=== PATIENT | male | born 1950 | race Caucasian/White ===

== ENCOUNTER 2019-01-25 07:05 | Day surgery (SDC) | payer MEDICARE, BC ==
[~2019-01-25 07:05] MED LIST: Acetaminophen TAB* 325 MG PO PRN; Buffered Lidocaine 1% SYRIN* 1 ML/SYRINGE INTRADERM ONE
[2019-01-25] MEDS ORDERED: Midazolam* 1 MG/ML 2 ML VIAL (2 MG) ONE (08:21)
[2019-01-25 09:43] VITALS: BP 140/75
[2019-01-25] MEDS ORDERED: Lidocaine 2% EPI 1:200000 MPF*10-20 ML VIAL ONE (10:07)
[2019-01-25] MEDS ORDERED: Lidocaine 1%* 5 ML VIAL ONE (10:07)
[2019-01-25] MEDS ORDERED: Proparacaine 0.5% OPHTH.SOL* 15 ML BTL ONE (10:07)
[2019-01-25] MEDS ORDERED: Cyclopentolate 1% OPTH.SOL* 2 ML BTL ONE (10:07)
[2019-01-25] MEDS ORDERED: Phenylephrine OPHTH SOL 2.5%* 2 ML ONE (10:07)
[2019-01-25] MEDS ORDERED: Ketorolac 0.5% OPHTH (NF) 0.5 % 5 ML BTL ONE (10:07)
[2019-01-25] MEDS ORDERED: acetaZOLAMIDE TAB* 250 MG ONE (10:07)
[2019-01-25] MEDS ORDERED: Neomycin/Polymy/Dex OPTH.SUSP* MAXITROL 0.1% 5 ML ONE (10:07)
[2019-01-25] MEDS ORDERED: Povidone Iodine 5% OPTH* 30 ML BTL ONE (10:07)
--- NOTE | 2019-01-25 11:28 | OP ---
OPERATIVE NOTE: DATE OF OPERATION: 01/25/19 DATE OF : 46 SURGEON: Gonzalo Levy M.D. PREOPERATIVE DIAGNOSIS: Cataract, left eye. POSTOPERATIVE DIAGNOSIS: Cataract, left eye. OPERATIVE PROCEDURE: Extracapsular cataract extraction with intraocular lens implant left eye. PROCEDURE: The patient was brought to the operating room after being given 1/2% Alcaine with epineph rine drops in the preoperative area. The eye was prepped and draped in the usual sterile fashion. S terile drape and eyelid speculum were placed. Again, topical 1/2% Alcaine with epinephrine was given . A paracentesis incision was made at the 3 o'clock position with the No.75 blade. Clear cornea inc ision 2.2 x 2.2-mm was created at the 6 o'clock position starting at the anterior limbus using the 2. 2-mm keratome. The anterior chamber was irrigated with 0.4 mL of 1% non-preservative intracameral li docaine and filled with DisCoVisc. A capsulorrhexis was completed using the cystotome and the Utrata forceps. Hydrodissection was performed with balanced salt solution. The lens nucleus was removed wi th the Phacoemulsification handpiece without incident. Cortex was removed with the irrigation-aspira tion handpiece. The capsular bag was re-inflated using DisCoVisc and an SN60WF 19.5 implant was inse rted with the shooter. The irrigation-aspiration handpiece was used to remove all residual DisCoVisc . The eye was refilled with balanced salt solution and the wound checked and found to be watertight. Topical Maxitrol drops were given. [id number]/[facility] #: [id number]
== END 2019-01-25 09:25 | disposition home or self-care (01) ==
LOC: OREAST 07:05
PROVIDERS: ATTEND Specialist
DX: H25.812 Combined forms of age-related cataract, left eye (principal); I10 Essential (primary) hypertension; E78.00 Pure hypercholesterolemia, unspecified; Z85.46 Personal history of malignant neoplasm of prostate; K21.9 Gastro-esophageal reflux disease without esophagitis; M19.90 Unspecified osteoarthritis, unspecified site
CPT/HCPCS: A9270-GY; J2250; V2632

== ENCOUNTER → 2019-03-13 07:41 | Emergency (ER) | payer MEDICARE, BC ==
--- OUTSIDE RECORDS SUMMARY | 2019-03-13 08:07 | XMS REPORT | Continuity of Care Document ---
:1950 External Reference #:[id number] Author Name Tom Chacon MD Address [address] [place] [place] [id number] Care Team Providers Name Role Phone Jose Ramon García M.D. 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 Onset: 04/06/2012 Social History Type Date Description Comments Sex Unknown Tobacco Use Start: Unknown End: Unknown Does Not Smoke Cigarettes ETOH Use Rarely consumes alcohol Vital Signs Date Vital Result Comment 03/10/2019 4:10pm Weight 229.00 lb Weight 103.874 kg Heart Rate 64 /min Body Temperature 98.2 F Respiratory Rate 16 /min Height 70.5 inches 5'10.50" BMI (Body Mass Index) 32.4 kg/m2 Right Visual Acuity Distance 20/25 Left Visual Acuity Distance 20/25 Both Visual Acuity Distance 20/25 Right ear audiology results Pass Left ear audiology results Pass 04/08/2018 4:11pm Weight 216.00 lb Weight 97.978 kg BP Systolic 138 mmHg BP Diastolic 80 mmHg Heart Rate 78 /min Body Temperature 97.2 F Respiratory Rate 16 /min O2 % BldC Oximetry 98 % 04/01/2017 3:59pm Weight 243.00 lb Weight 110.225 kg BP Systolic 140 mmHg BP Diastolic 80 mmHg Heart Rate 80 /min Height 70.5 inches 5'10.50" BMI (Body Mass Index) 34.4 kg/m2 Right Visual Acuity Distance 20/25 corrected Left Visual Acuity Distance 20/30 Corrected Both Visual Acuity Distance 20/25 Corrected, Corrected [place]ara Color Vision Test Pass Right ear audiology results Pass Left ear audiology results Pass O2 % BldC Oximetry 98 % 03/04/2016 10:42am Weight 240.00 lb Weight 108.864 kg BP Systolic 136 mmHg BP Diastolic 72 mmHg Heart Rate 66 /min Height 70.5 inches 5'10.50" BMI (Body Mass Index) 33.9 kg/m2 Right Visual Acuity Distance 20/25 Corrected Left Visual Acuity Distance 20/25 Corrected Both Visual Acuity Distance 20/20 Corrected 03/15/2015 10:15am Weight 234.00 lb Weight 106.142 kg BP Systolic 128 mmHg BP Diastolic 78 mmHg Heart Rate 71 /min Body Temperature 98.0 F Respiratory Rate 16 /min Height 72 inches BMI (Body Mass Index) 31.7 kg/m2 Right Visual Acuity Distance 20/20 Left Visual Acuity Distance 20/25 Both Visual Acuity Distance 20/30 03/30/2014 10:00am Weight 244.00 lb Weight 110.678 kg BP Systolic 132 mmHg BP Diastolic 82 mmHg Heart Rate 68 /min Height 71 inches 5'11" BMI (Body Mass Index) 34.0 kg/m2 Right Visual Acuity Distance 20/25 Corrected Left Visual Acuity Distance 20/20 Corrected Both Visual Acuity Distance 20/20 Corrected 03/23/2013 11:03am Weight 240.00 lb Weight 108.864 kg BP Systolic 120 mmHg BP Diastolic 80 mmHg Heart Rate 88 /min Height 71 inches 5'11" BMI (Body Mass Index) 33.5 kg/m2 Right Visual Acuity Distance 20/20 corrected Left Visual Acuity Distance 20/20 corrected Both Visual Acuity Distance 20/20 corrected 03/16/2012 10:03am Weight 234.00 lb Weight 106.142 kg BP Systolic 128 mmHg BP Diastolic 80 mmHg Heart Rate 84 /min Height 72 inches 6'0" BMI (Body Mass Index) 31.7 kg/m2 Right Visual Acuity Distance 20/20 Left Visual Acuity Distance 20/20 Both Visual Acuity Distance 20/20 With Glasses 03/20/2011 10:21am Weight 233.00 lb Weight 105.689 kg BP Systolic 116 mmHg BP Diastolic 84 mmHg Heart Rate 84 /min Height 71 inches 5'11" BMI (Body Mass Index) 32.5 kg/m2 Right Visual Acuity Distance 20/25 with glasses Left Visual Acuity Distance 20/30 with glasses Both Visual Acuity Distance 20/25 with glasses Last Menstrual Period 0 03/01/2009 11:42am Weight 237.00 lb Weight 107.503 kg BP Systolic 146 mmHg BP Diastolic 90 mmHg Heart Rate 72 /min Height 71 inches 5'11" BMI (Body Mass Index) 33.1 kg/m2 Right Visual Acuity Distance 20/20 Left Visual Acuity Distance 20/20 04/14/2007 4:09pm Weight 232.00 lb Weight 105.235 kg BP Systolic 120 mmHg BP Diastolic 80 mmHg Heart Rate 78 /min Respiratory Rate 18 /min Height 70.5 inches 5'10.50" BMI (Body Mass Index) 32.8 kg/m2 Right Visual Acuity Distance 20/20 Left Visual Acuity Distance 20/20 04/16/2006 3:52pm Weight 235.00 lb Weight 106.596 kg BP Systolic 130 mmHg BP Diastolic 78 mmHg Heart Rate 78 /min Height 70.5 inches 5'10.50" BMI (Body Mass Index) 33.2 kg/m2 12/03/2005 10:15am Weight 230.00 lb Weight 104.328 kg BP Systolic 112 mmHg BP Diastolic 64 mmHg Heart Rate 66 /min Height 70.5 inches 5'10.50" BMI (Body Mass Index) 32.5 kg/m2 Right Visual Acuity Distance 20/25 With Glasses Left Visual Acuity Distance 20/20 Results Test Date Facility Test Result H/L Range Note Urine DIP 04/08/2018 [facility] Leukocytes neg Neg (607)- - Urine Nitrites neg Neg Urobilinogen norm Norm Total Protein, Urine neg Neg Urine pH 6.0 5-6 Urine Blood neg Neg Specific [place] 1.005 Low 1.01-1.02 Urine Ketones neg Neg Urine Bilirubin neg Neg Urine Glucose norm Norm Urine DIP 04/01/2017 [facility] Leukocytes neg Neg (607)- - Urine Nitrites neg Neg Urobilinogen norm Norm Total Protein, Urine neg Neg Urine pH 6 5-6 Urine Blood 50 High Neg Specific [place] 1.01 1.01-1.02 Urine Ketones neg Neg Urine Bilirubin neg Neg Urine Glucose norm Norm Urine DIP 03/04/2016 [facility] Leukocytes NEG Neg (607)- - Urine Nitrites NEG Neg Urobilinogen NORM Norm Total Protein, Urine TRACE Neg Urine pH 5 5-6 Urine Blood NEG Neg Specific [place] 1.015 1.01-1.02 Urine Ketones NEG Neg Urine Bilirubin NEG Neg Urine Glucose NORM Norm Urine DIP 03/15/2015 [facility] Specific [place] 1.005 Low 1.01-1.02 (607)- - Urine pH 5 5-6 Leukocytes TRACE Neg Urine Nitrites NEG Neg Total Protein, Urine NEG Neg Urine Glucose NORM Norm Urine Ketones NEG Neg Urobilinogen NORM Norm Urine Bilirubin NEG Neg Urine Blood ABOUT 50 Neg Urine DIP 03/30/2014 [facility] Specific [place] 1.015 1.01-1.02 (607)- - Urine pH 5 5-6 Leukocytes NEG Neg Urine Nitrites NEG Neg Total Protein, Urine NEG Neg Urine Glucose NORM Norm Urine Ketones NEG Neg Urobilinogen NORM Norm Urine Bilirubin NEG Neg Urine Blood NEG Neg Urine DIP 03/23/2013 [facility] Leukocytes neg Neg (607)- - Urine Nitrites neg Neg Urine pH 5 5-6 Total Protein, Urine neg Neg Urine Glucose norm Norm Urine Ketones neg Neg Urobilinogen norm Norm Urine Bilirubin neg Neg Urine Blood neg Neg Specific [place] 1.025 High 1.01-1.02 Urine DIP 03/16/2012 [facility] Leukocytes NEG Neg (607)- - Urine Nitrites NEG Neg Urine pH 5 5-6 Total Protein, Urine NEG Neg Urine Glucose NORM Norm Urine Ketones NEG Neg Urobilinogen NORM Norm Urine Bilirubin NEG Neg Urine Blood NEG Neg Specific [place] 1.010 1.01-1.02 Urine DIP 03/20/2011 [facility] Leukocytes neg Neg (607)- - Urine Nitrites neg Neg Urine pH 5 5-6 Total Protein, Urine neg Neg Urine Glucose norm Norm Urine Ketones neg Neg Urobilinogen norm Norm Urine Bilirubin neg Neg Urine Blood neg Neg Specific [place] 1.015 1.01-1.02 Urine DIP 03/01/2009 [facility] Leukocytes NEG Neg (607)- - Urine Nitrites NEG Neg Urine pH 5 5-6 Total Protein, Urine NEG Neg Urine Glucose NORM Norm Urine Ketones NEG Neg Urobilinogen NORM Norm Urine Bilirubin NEG Neg Urine Blood NEG Neg Specific [place] 1.010 1.01-1.02 Urine DIP 04/14/2007 [facility] Leukocytes NEG Neg (607)- - Urine Nitrites NEG Neg Urine pH 5 5-6 Total Protein, Urine NL Neg Urine Glucose NL Norm Urine Ketones NL Neg Urobilinogen NL Norm Urine Bilirubin NL Neg Urine Blood NL Neg Specific [place] N/A Low 1.01-1.02 Urine DIP 04/16/2006 [facility] Leukocytes NEG Neg (607)- - Urine Nitrites NEG Neg Urine pH 5 5-6 Total Protein, Urine NEG Neg Urine Glucose NORM Norm Urine Ketones NEG Neg Urobilinogen NORM Norm Urine Bilirubin NEG Neg Urine Blood NEG Neg Urine DIP 01/01/2006 [facility] Leukocytes neg Neg (607)- - Urine Nitrites nge Neg Urine pH 5 5-6 Total Protein, Urine neg Neg Urine Glucose norm Norm Urine Ketones neg Neg Urobilinogen norm Norm Urine Bilirubin neg Neg Urine Blood neg Neg Specific [place] na Low 1.01-1.02 Comp Metabolic 12/04/2005 [facility] One Over Creatinine 1.00 Panel [phone] Anion Gap 6.0 mmol/L 2-11 1 Albumin/Globulin Ratio 1.4 1-3 Albumin 3.7 GM/DL 3.6-5.4 Alkaline Phosphatase 70 U/L 39-117 Alt (SGPT) 15 U/L Low 17-63 Ast (Sgot) 22 U/L 12-42 BUN 14 mg/dL 6-24 Calcium 9.1 mg/dL 8.7-10.2 Chloride 103 mmol/L 101-111 Co2 (Carbon Dioxide) 30.0 mmol/L 22-32 Globulin 2.6 GM/DL 2-4 Glucose 97 mg/dL 70-105 Potassium 4.7 mmol/L 3.5-5.0 Sodium 139 mmol/L 135-145 Bilirubin Total 0.8 mg/dL 0.4-1.5 Total Protein 6.3 GM/DL 6.2-8.1 BUN/Creatinine Ratio 14.0 8-20 Creatinine 1.0 mg/dL 0.5-1.4 Lipid Profile 12/04/2005 [facility] Cholesterol 249 mg/dL High Less 2 (Trig/Chol/HDL) [phone] Than 200 Triglyceride 174 mg/dL 40-200 High Density Lipoprotein 39 mg/dL Low 40-60 3 Low Density Lipoprotein 175 mg/dL High Less Than 100 4 Cholesterol/HDL Ratio 6.38 AVERAGE High 1-4.97 1 Anion gap measurement may be of limited value in the presence of any alkalosis, especially in a combined acid base disorder. . 2 Classification: High . 3 Classification: Low . 4 CALCULATED LDL APPROXIMATES THE VALUE OF A DIRECT LDL MEASUREMENT. Classification: High . Procedures Date Code Description Status 12/03/2005 92387 EKG, at Least 12 Leads w/Interpretation and Report Completed Encounters Type Date Location Provider Dx Diagnosis Office Visit 12/03/2005 10:15a Main Office [facility] Plan of Treatment 03/20/2011 - Martha Colon M.D.V70.0 Examination [facility]
--- NOTE | 2019-03-13 08:12 | ED ---
HPI Chest Pain - History of Current Complaint Chief Complaint: EDNeurologicalDeficit Time Seen by Provider: 03/13/19 07:44 Pain Intensity: 1 - Allergy/Home Medications Allergies/Adverse Reactions: Allergies Allergy/AdvReac Type Severity Reaction Status Date / Time No Known Allergies Allergy Verified 01/25/19 07:31 PMH/Surg Hx/FS Hx/Imm Hx Endocrine/Hematology History: Denies: Hx Diabetes Cardiovascular History: Reports: Hx Hypertension - WELL CONTROLLED, Other Cardiovascular Problems/Disorders - HIGH CHOLESTEROL Denies: Hx Pacemaker/ICD GI History: Reports: Hx Gastroesophageal Reflux Disease Musculoskeletal History: Reports: Hx Arthritis - MILD Sensory History: Reports: Hx Cataracts - BOTH EYES, Hx Contacts or Glasses - GLASSES Denies: Hx Hearing Aid Opthamlomology History: Reports: Hx Cataracts - BOTH EYES, Hx Contacts or Glasses - GLASSES Psychiatric History: Denies: Hx Panic Disorder - Cancer History Cancer Type, Location and Year: PROSTATE 10/2017 Hx Chemotherapy: No - RADIATION 9 WEEKS - Surgical History Surgery Procedure, Year, and Place: 1965 APPY [facility] [place]. VASECTOMY 1995 [facility] [place]. HERNIA 1995 [facility] [place]. SINUS SURGERY 2006 [place]. TURP 3YRS AGO Hx Anesthesia Reactions: No Infectious Disease History: No Infectious Disease History: Denies: Traveled Outside the [place] in Last 30 Days - Social History Alcohol Use: Weekly Alcohol Amount: 4-5/WEEK Substance Use Type: Reports: None Smoking Status (MU): Former Smoker Type: Cigarettes Length of Time of Smoking/Using Tobacco: ON AND OFF APPROX 10 YRS Have You Smoked in the Last Year: No Physical Exam Vital Signs On Initial Exam: Initial Vitals Temp Pulse Resp BP Pulse Ox 96.6 F 77 18 156/91 98 03/13/19 07:46 03/13/19 07:46 03/13/19 07:46 03/13/19 07:46 03/13/19 07:46 Diagnostics - Vital Signs Vital Signs Temp Pulse Resp BP Pulse Ox 03/13/19 07:46 96.6 F 77 18 156/91 98 - Laboratory Lab Statement: Any lab studies that have been ordered have been reviewed, and results considered in the medical decision making process. Discharge - Discharge Plan Referrals: Sage Oquendo MD [Primary Care Provider] - - Attestation Statements Document Initiated by Scribe: Yes
--- NOTE | 2019-03-13 08:13 | ED ---
Complex/Multi-Sys Presentation - HPI Summary HPI Summary: The patient is a 68 year old M presenting to [facility] accompanied by his with a chief complaint of L sided sharp rib pain since last night 03/12/19. Patient reports pain on deep inhalation and that the area is sensitive to touch. Patient reports there is associated numbness on the L side of the chin and "prickling" bilaterally on the cheeks starting last evening as well. Patient rates the pain a 1/10 and that burping made it feel better. Patient reports no factors that aggravate the CC. Patient reports that he was diagnosed with prostate cancer October 2018. He notes that he received 9 weeks of radiation therapy. Patient reports taking luperine for prostate cancer and notes that he experiences hot flash side effects with the medication. He also makes note of chronic back pain and states he "pulled a muscle" after stepping over a log 2-3 weeks ago. - History Of Current Complaint Chief Complaint: EDNeurologicalDeficit Time Seen by Provider: 03/13/19 07:44 Hx Obtained From: Patient Onset/Duration: Sudden Onset, Lasting Hours - since last evening, Still Present Timing: Constant, Hours Severity Currently: Mild Character: Sharp Aggravating Factor(s): deep breaths and palpation Alleviating Factor(s): burping Associated Signs And Symptoms: Positive: Other - "Prickling" sensation bilaterally on cheeks, L chin numbness, left rib pain - Allergies/Home Medications Allergies/Adverse Reactions: Allergies Allergy/AdvReac Type Severity Reaction Status Date / Time No Known Allergies Allergy Verified 01/25/19 07:31 PMH/Surg Hx/FS Hx/Imm Hx Endocrine/Hematology History: Denies: Hx Diabetes Cardiovascular History: Reports: Hx Hypertension - WELL CONTROLLED, Other Cardiovascular Problems/Disorders - HIGH CHOLESTEROL Denies: Hx Pacemaker/ICD GI History: Reports: Hx Gastroesophageal Reflux Disease Musculoskeletal History: Reports: Hx Arthritis - MILD Sensory History: Reports: Hx Cataracts - BOTH EYES, Hx Contacts or Glasses - GLASSES Denies: Hx Hearing Aid Opthamlomology History: Reports: Hx Cataracts - BOTH EYES, Hx Contacts or Glasses - GLASSES Psychiatric History: Denies: Hx Panic Disorder - Cancer History Cancer Type, Location and Year: PROSTATE 10/2017 Hx Chemotherapy: No - RADIATION 9 WEEKS - Surgical History Surgery Procedure, Year, and Place: 1965 APPY [facility] [place]. VASECTOMY 1995 [facility] [place]. HERNIA 1995 [facility]. SINUS SURGERY 2007 [place]. LAUREP 3YRS AGO Hx Anesthesia Reactions: No Infectious Disease History: No Infectious Disease History: Denies: Traveled Outside the [place] in Last 30 Days - Family History Known Family History: Positive: Hypertension Negative: Diabetes - Social History Alcohol Use: Weekly Alcohol Amount: 4-5/WEEK Substance Use Type: Reports: None Smoking Status (MU): Former Smoker Type: Cigarettes Length of Time of Smoking/Using Tobacco: ON AND OFF APPROX 10 YRS Have You Smoked in the Last Year: No Review of Systems Positive: Other - L rib pain Neurological: Other - bilateral "prickly" facial sensation Positive: Numbness - numbness of L side chin All Other Systems Reviewed And Are Negative: Yes Physical Exam - Summary Physical Exam Summary: Appearance: The patient is well-nourished in no acute distress and in no acute pain. Skin: The skin is warm and dry and skin color reflects adequate perfusion. HEENT: The head is normocephalic and atraumatic. The pupils are equal and reactive. The conjunctivae are clear and without drainage. Nares are patent and without drainage. Mouth reveals moist mucous membranes and the throat is without erythema and exudate. The external ears are intact. The ear canals are patent and without drainage. The tympanic membranes are intact. Neck: The neck is supple with full range of motion and non-tender. There are no carotid bruits. There is no neck vein distension. Respiratory: Chest is non-tender. Lungs are clear to auscultation and breath sounds are symmetrical and equal. Cardiovascular: Heart is regular rate and rhythm. There is a soft systolic injection murmur and a mechanical valve closing sound. There is no peripheral edema and pulses are symmetrical and equal. Abdomen: The abdomen is soft and non-tender. There are normal bowel sounds heard in all four quadrants and there is no organomegaly palpated. Musculoskeletal: There is no back tenderness noted. Extremities are non-tender with full range of motion. There is good capillary refill. There is no peripheral edema or calf tenderness elicited. Mild tenderness in mid anterior axillary line at left chest Neurological: Patient is alert and oriented to person, place and time. The patient has symmetrical motor strength in all four extremities. Cranial nerves are grossly intact. Deep tendon reflexes are symmetrical and equal in all four extremities. GCS 15. Decreased sensation on L chin. Psychiatric: The patient has an appropriate affect and does not exhibit any anxiety or depression Triage Information Reviewed: Yes Vital Signs On Initial Exam: Initial Vitals Temp Pulse Resp BP Pulse Ox 96.6 F 77 18 156/91 98 03/13/19 07:46 03/13/19 07:46 03/13/19 07:46 03/13/19 07:46 03/13/19 07:46 Vital Signs Reviewed: Yes Diagnostics - Vital Signs Vital Signs Temp Pulse Resp BP Pulse Ox 03/13/19 07:46 96.6 F 77 18 156/91 98 - Laboratory Result Diagrams: 03/13/19 08:30 03/13/19 08:30 Lab Statement: Any lab studies that have been ordered have been reviewed, and results considered in the medical decision making process. - Radiology CXR Radiology Interpretation Completed By: Radiologist Summary of Radiographic Findings: NO ACTIVE CARDIOPULMONARY DISEASE. ED physician has reviewed the report. - CT Brain CT Interpretation Completed By: Radiologist Summary of CT Findings: NO ACUTE INTRACRANIAL PATHOLOGY. ED physician reviewed this report. - EKG 08:16 Cardiac Rate: NL - 77 BPM EKG Rhythm: Sinus Rhythm Ectopy: PACs Summary of EKG Findings: EKG shows: normal sinus rhythm with rate of 77 BPM, PACs, and a non-specific T wave changes in inferior leads. 09:15 Cardiac Rate: NL - 80 BPM Summary of EKG Findings: EKG shows: Normal sinus rhythm and rate of 80 BPM, PVSC , non-specific T wave changes in inferior leads. Complex Multi-Symp Course/Dx Course Of Treatment: Mr. Pan started with some left-sided chest pain a couple days ago after he worked under his car. It's a sharp pain that is aggravated by movement or by breathing. He is not short of breath diaphoretic or nauseated. He got concerned today because the left side of his chin felt numb when he woke up this morning. He has no neck pain or other symptoms of concern. He was nontoxic in appearance with stable vital signs. Subjectively he had decreased sensation in the left side of his chin. This is not exam is grossly intact. He was tender on the left side of his chest in the exact spot that he points to for his pain. He was kept on a monitor and evaluated with head CT and labs including a delayed troponin with chest x-ray. Workup was negative and I briefly discussed his numbness with Dr. Dolan who agreed that this was more likely a local phenomenon than a stroke. I recommended close follow-up with his PCP. - Diagnoses Provider Diagnoses: Chest pain Discharge - Sign-Out/Discharge Documenting (check all that apply): Patient Departure - discharge Patient Received Moderate/Deep Sedation with Procedure: No - Discharge Plan Condition: Stable Disposition: HOME Patient Education Materials: Chest Pain (ED) Referrals: Sage Oquendo MD [Primary Care Provider] - 2 Days Additional Instructions: Follow up with primary care physician in 2-3 days. Return to the ED for any new or worsening symptoms. - Billing Disposition and Condition Condition: STABLE Disposition: Home - Attestation Statements Document Initiated by Scribe: Yes Documenting Scribe: Sage Mcguire Provider For Whom Clemencia is Documenting (Include Credential): Kameron Zamudio MD Scribe Attestation: Kalpesh Riddle Jacob Kolenda, scribed for Kameron Zamudio MD on 03/13/19 at 1409. Scribe Documentation Reviewed: Yes Provider Attestation: The documentation as recorded by the leticiaibjass, Sage Mcguire accurately reflects the service I personally performed and the decisions made by me, Kameron Zamudio MD Status of Scribe Document: Viewed
[2019-03-13 08:41] LABS: ABS Eosinophils 0.1 10^3/ul (0-0.6); ABS Lymphocytes 0.7 10^3/ul (1.0-4.8); ABS Monocytes 0.5 10^3/ul (0-0.8); ABS Neutrophils 3.4 10^3/ul (1.5-7.7); Eosinophil % 1.4 %; Hematocrit 36 % (42-52); Hemoglobin 12.1 g/dL (14.0-18.0); Lymphocyte % 14.3 %; Mean Corpuscular HGB Conc 33 g/dL (31-36); Mean Corpuscular Hemoglobin 30 pg (27-31); Mean Corpuscular Volume 90 fL (80-94); Mean Platelet Volume 7.7 fL (7.4-10.4); Nucleated Red Blood Cells % 0.1; Platelet Count 176 10^3/uL (150-450); Red Blood Count 4.02 10^6 /uL (4.18-5.48); Red Cell Distribution Width 14 % (10.5-15); White Blood Count 4.6 10^3/uL (3.5-10.8)
[2019-03-13 09:01] LABS: Albumin 4.2 g/dL (3.2-5.2); Albumin/Globulin Ratio 1.5 (1-3); BUN/Creatinine Ratio 14.5 (8-20); Calcium 9.6 mg/dL (8.6-10.3); EGFR African American 110.8 (>60); EGFR Non-African American 91.6 (>60); Globulin 2.8 g/dL (2-4); Total Bilirubin 0.4 mg/dL (0.2-1.0); Troponin I 0.02 ng/mL (<0.04)
[2019-03-13 09:07] LABS: INR 1.09 (0.82-1.09)
[2019-03-13 09:39] LABS: TSH (Thyroid Stimulating Horm) 1.48 mcIU/mL (0.34-5.60)
[2019-03-13 12:50] VITALS: BP 113/73
== END | disposition home or self-care (01) ==
LOC: ED 07:41
DX: R07.9 Chest pain, unspecified (principal); I10 Essential (primary) hypertension; K21.9 Gastro-esophageal reflux disease without esophagitis; Z82.49 Family history of ischemic heart disease and other diseases of the circulatory system; Z87.891 Personal history of nicotine dependence
CPT/HCPCS: 36415; 70450; 71045; 80053; 83605; 84443; 84484; 85025; 85610; 93005; 99283

== ENCOUNTER 2019-10-30 11:54 | Inpatient (IN) | payer MEDICARE, BC ==
[2019-10-30] MEDS ORDERED: Furosemide IV* 10 MG/ML 2 ML VIAL (20 MG) IV ONE ×3 (11:58→21:00)
[2019-10-30] MEDS ORDERED: HYDROcodone/ACET. 7.5/325 LIQ* 15 ML UDC PO PRN (12:24)
[2019-10-30] MEDS ORDERED: Gaviscon CHEW TAB* 1 TAB PO PRN (12:24)
[2019-10-30] MEDS ORDERED: guaiFENesin ER TAB 600 MG PO PRN (12:24)
[2019-10-30] MEDS ORDERED: Furosemide IV* 10 MG/ML 2 ML VIAL (20 MG) ONE (12:53)
[2019-10-30 15:38] LABS: ABS Lymphocytes 0.3 10^3/ul (1.0-4.8); ABS Monocytes 0.2 10^3/ul (0-0.8); ABS Neutrophils 2.1 10^3/ul (1.5-7.7); Eosinophil % 1.3 %; Hematocrit 19 % (42-52); Hemoglobin 6.3 g/dL (14.0-18.0); Lymphocyte % 11.8 %; Mean Corpuscular HGB Conc 33 g/dL (31-36); Mean Corpuscular Hemoglobin 30 pg (27-31); Mean Corpuscular Volume 91 fL (80-94); Mean Platelet Volume 7.7 fL (7.4-10.4); Nucleated Red Blood Cells % 0.4; Platelet Count 93 10^3/uL (150-450); Red Blood Count 2.09 10^6 /uL (4.18-5.48); Red Cell Distribution Width 22 % (10-15); White Blood Count 2.7 10^3/uL (3.5-10.8)
[2019-10-30] MEDS ORDERED: Metoprolol Tartrate TAB* 25 MG PO ONE (16:53)
[2019-10-30] MEDS ORDERED: Perflutren Lipid Microsphere* 3 ML VIAL ONE (16:54)
[2019-10-30 17:18] LABS: % Iron Saturation 25 % (15-55); Iron 87 ug/dL (50-212); Total Iron Binding Capacity 350 mcg/dL (250-450); Transferrin 250 mg/dL (203-362)
[2019-10-30 17:37] LABS: Ferritin 541.5 ng/mL (24-336)
[2019-10-30 17:41] LABS: Folate 18.88 ng/mL (>3.99)
--- NOTE | 2019-10-30 19:19 | ECHO ---
*[facility]* [place] [address] Fax #: [phone] Transthoracic Echocardiogram Patient: Kameron Pan : 1950 Study Date: 10/30/2019 Age: 68 Gender: M HR: 118 bpm Height: 71 in /180.3 cm BSA: 2.18 m^2 Weight: 216.5 lb /98.4 kg BMI: 30.3 kg/m^2 *Surgery Attendant: Windy Woodall *Referring Physician: * Martha Stokes *Reading Physician: * Morgan Elizondo MD Indications: SOB. History: Chemo. Atrial fibrillation. Risk factors: Hypertension. Dyslipidemia. Conclusions Summary: - Left ventricle: The cavity size is dilated. Wall thickness is at the upper limits of normal. Systolic function is severely reduced. The estimated ejection fraction is 20-25%. Severe diffuse hypokinesis with regional variations. - Right ventricle: The cavity size is at the upper limits of normal. Systolic function is mildly reduced. - Left atrium: The atrium is moderately dilated. - Mitral valve: There is mild to moderate regurgitation. - Pericardium, extracardiac: There is a right pleural effusion and a left pleural effusion. - Pulmonary arteries: Systolic pressure is mildly increased, estimated to be 46 mm Hg. - Patient in rate uncontrolled afib at time of study Recommendations: None prior for comparison at time of interpretation. Study data: Transthoracic echocardiogram. Procedure: Transthoracic echocardiography was performed. Image quality was excellent. Intravenous Definity , 2 mlswas administered. Complete 2D, spectral Doppler, and color flow Doppler. Location: Bedside. Patient status: Inpatient. Patient room number: 443-2. Rhythm: Atrial fibrillation. Findings Left ventricle: The cavity size is dilated. Wall thickness is at the upper limits of normal. Systolic function is severely reduced. The estimated ejection fraction is 20-25%. Severe diffuse hypokinesis with regional variations. Left ventricular diastolic function parameters are indeterminate. Right ventricle: The cavity size is at the upper limits of normal. Systolic function is mildly reduced. Left atrium: The atrium is moderately dilated. Right atrium: The atrium is dilated. Mitral valve: The leaflets are normal thickness. There is no evidence of stenosis. There is mild to moderate regurgitation. Aortic valve: The valve is trileaflet. The leaflets are mildly calcified. There is no evidence of stenosis. There is trace to mild regurgitation. Tricuspid valve: The leaflets are normal thickness. There is no evidence of stenosis. There is mild regurgitation. Pulmonic valve: The leaflets are normal thickness. There is no evidence of stenosis. There is physiologic regurgitation. Aorta: The aortic root appears upper normal. The aortic arch appears normal. Pericardium: There is no significant pericardial effusion. There is a right pleural effusion and a left pleural effusion. Pulmonary arteries: Systolic pressure is mildly increased, estimated to be 46 mm Hg. Systemic veins: Inferior vena cava is mildly dilated. Pulmonary veins: The Pulmonary veins appear normal. Measurements Left ventricle Value Ref Aortic valve continued Value Ref SUMIT, LAX (H) 5.9 cm 4.2 - Peak grad, S 5.0 mm Hg ----- 5.8 CHANCE, VTI 2.69 cm^2 ----- ESD, LAX (H) 5.4 cm 2.5 - CHANCE, Vmax 2.58 cm^2 ----- 4.0 FS, LAX (L) 8 % 25 - 43 Mitral valve Value Ref PW, ED, LAX (H) 1.2 cm 0.6 - Peak E 1.24 m/sec ----- 1.0 Peak A 0 m/sec ----- FS (L) 8 % 25 - 43 Decel time 123 ms ----- Mid-wall FS 4 % -------- Peak grad, D 6.2 mm Hg ----- PW, ED (H) 1.2 cm 0.6 - Peak E/A ratio 413.3 ----- 1.0 PW/ID, ED 0.2 -------- Pulmonic valve Value Ref E', avg, TDI 8.9 cm/sec -------- Peak v, S 0.59 m/sec - ---- E/e', avg, TDI 14 <=14 Peak grad, S 1.0 mm H g ----- LVOT Value Ref Tricuspid valve Value Ref Diam, S 2.20 cm -------- TR peak v (H) 3.08 m/sec <=2 .8 Area 3.8 cm^2 -------- Peak RV-RA grad, S 38 mm Hg ----- Peak chato, S 0.76 m/sec -------- Max TR chato 3.17 m/sec ----- Mean grad, S 1 mm Hg -------- SV 51 ml -------- Aortic root Value Ref Root diam 3.8 cm <4. 3 Ventricular septum Value Ref IVS, ED (H) 1.1 cm 0.6 - Ascending aorta Value Ref 1.0 AAo AP diam, S 3.2 cm ----- Right ventricle Value Ref Decending aorta Value Ref SUMIT, LAX 4.0 cm -------- Mervin peak chato 0.76 m/sec ----- SUMIT minor ax, A4C 3.5 cm 1.9 - mid 3.5 Inferior vena cava Value Ref Diam 2.5 cm ----- Left atrium Value Ref Vol/bsa, ES, 1-p 36 ml/m^2 12 - 37 A4C Aortic valve Value Ref Peak v, S 1.12 m/sec -------- VTI, S 15.2 cm -------- Mean grad, S 2.0 mm Hg -------- Legend: (L) and (H) vijay values outside specified reference range. Prepared and electronically signed by Morgan Elizondo MD 10/30/2019 19:18
[2019-10-30] MEDS ORDERED: Potassium Chlor TAB* 20 MEQ TAB.ER PO ONE (19:24)
[2019-10-30] MEDS ORDERED: Digoxin IV* 0.5 MG/2 ML AMP (0.25 MG/ML) IV SLOW PU ONE (19:24)
--- NOTE | 2019-10-30 19:27 | CONSULT ---
Subjective Date of Service: 10/30/19 Interval History: Date of admission and consult 10/30/2019 Service: Hospitalist PCP: Dr. Oquendo CC: Weakness, fatigue, shortness of breath Reason for consult: New onset CHF and atrial fibrillation HPI: Mr. Pan is a 68 year old man with history as below. He was admitted for Hematology/Oncology service with fatigue and dyspnea, orthopnea that has been ongoing. He was found pancytopenia as a complication of chemotherapy, new onset systolic HF and rapid afib, the latter 2 of uncertain duration. He has received pRBC and IV lasix with good subjective UOP unquantified. He has had no major bleeding, chest pain, palpitations or syncope. 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 He has had a TURP. 2. Appendectomy. 3. Hernia repair. ALLERGIES: No known drug allergies. FAMILY HISTORY: Mother with a history of an [place]. Father with a history of stroke at the age of 79. No reported history of diabetes. Cancer: Brother with prostate cancer. SOCIAL HISTORY: Denies any tobacco. rare alcohol use. No drug use. 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 He is a full code. Medications Active Medications: Hydrocodone Bitart/Acetaminophen (Nortab 7.5/325 Liq*) 15 ml PO Q6HR PRN PRN Reason: PAIN - MODERATE Al Hydroxide/Mg Trisilicate (Gaviscon Chew Tab*) 1 tab.chew PO Q6HR PRN PRN Reason: INDIGESTION Cyanocobalamin (Vitamin B12 Tab*) 1,000 mcg PO DAILY BERTA Digoxin (Digoxin Iv*) 0.5 mg IV SLOW PU ONCE ONE Stop: 10/30/19 19:25 Furosemide (Lasix Iv*) 20 mg IV ONCE ONE Stop: 10/30/19 21:01 Guaifenesin (Mucinex*) 1,200 mg PO BID PRN PRN Reason: COUGH Metoprolol Succinate (Toprol Xl Tab*) 25 mg PO BID BERTA Pantoprazole Sodium (Protonix Tab*) 40 mg PO QAM BERTA Potassium Chloride (Klor Con Er Tab*) 40 meq PO ONCE ONE Stop: 10/30/19 19:25 Home Medications: Candesartan Cilexetil 32 mg PO BEDTIME 01/22/15 [History Confirmed 10/30/19] Pantoprazole TAB * [Protonix TAB (NF)] 40 mg PO QAM 01/22/15 [History Confirmed 10/30/19] Cyanocobalamin TAB* [Vitamin B12 TAB*] 1,000 mcg PO DAILY 10/30/19 [History Confirmed 10/30/19] Hydrocodone/Acetaminophen [[place] 7.5-325 Tablet] 1 each PO Q6HR PRN MDD 4 tabs 10/30/19 [History Confirmed 10/30/19] Mag/Aluminum/Sod Bicarb/Alginc [Gaviscon 80-14.2 mg] 1 chw PO Q6HR PRN 10/30/19 [History Confirmed 10/30/19] Xtandi 160 mg PO 0600 10/30/19 [History Confirmed 10/30/19] guaiFENesin ER TAB [Mucinex*] 1,200 mg PO BID PRN 10/30/19 [History Confirmed ] Review of Systems - Measurements Intake and Output: Intake and Output Last 24 Hours 10/28/19 10/29/19 10/30/19 10/31/19 06:59 06:59 06:59 06:59 Intake Total 0 Output Total 650 Balance -650 Weight 230 lb 1.6 oz Intake: Oral 0 Output: Urine 650 - Review of Systems Constitutional Symptoms: Positive: Weakness, Fatigue Negative: Weight Gain, Weight Loss, Fever Dermatology: Negative: Rash, Skin Lesions HEENT: Negative: Change in Hearing, Vertigo Eyes: Negative: Change in Vision, Double Vision Thyroid: Positive: Radiation Exposure Negative: Palpitations Pulmonary: Positive: Respiratory Distress, Shortness of Breath, Exercise Intolerance Negative: Hemoptysis, COPD Cardiology: Positive: Shortness of Breath Negative: Chest Pain, Palpitations, Swelling of Ankles, Peripheral Vascular Dis, Edema, Syncope, Claudication Gastroenterology: Negative: Blood in Stools, Haematemesis, Melena Genital - Urinary: Negative: Dysuria, Hematuria, Nocturia Musculoskeletal: Negative: Joint Pain, Joint Stiffness Endocrinology: Negative: Polydipsia, Polyuria Hematologic/Lymphatic: Negative: Use of Antiplatelet Drugs Neurology: Negative: Diplopia, Dizziness, Hx of Stroke\TIA, Hx Seizures Psychiatry: Negative: Unusual Anxiety, Suicidal Ideation Allergic/Immunologic: Negative: Hx Angioedema, Hx HIV, Immunocompromise Review of Systems Statement: All other review of systems negative, unless stated above. Objective Vital Signs: Temp Pulse Resp BP Pulse Ox 97.9 F 120 20 108/70 98 10/30/19 15:15 10/30/19 15:15 10/30/19 15:15 10/30/19 15:15 10/30/19 15:15 Oxygen Devices in Use Now: None Appearance: pale, not toxic appearing, chronically ill appearing Ears/Nose/Mouth/Throat: Clear Oropharnyx, Mucous Membranes Moist Neck: Trachea Midline, - - uncertain jvp Respiratory: - - mild increased work of breathing and tachypnea, decreased breath sounds bases, crackles midway up lungs Cardiovascular: - - irregulalry irregular, trace edema, no signifiant murmur Abdominal: NL Sounds; No Tenderness; No Distention Extremities: No Clubbing, Cyanosis Skin: No Rash or Ulcers Neurological: Alert and Oriented x 3 Laboratory Results: 10/30/19 15:23 10/30/2019 Na 138, k 3.8, cr 0.82 glucos 110 lfts normal except alk phos 738 albumin 3.7 bnp 368 ferritin 541, tsat 25% Diagnostic Imaging: Transthoracic Echocardiogram Study Date: 10/30/2019 Summary: - Left ventricle: The cavity size is dilated. Wall thickness is at the upper limits of normal. Systolic function is severely reduced. The estimated ejection fraction is 20-25%. Severe diffuse hypokinesis with regional variations. - Right ventricle: The cavity size is at the upper limits of normal. Systolic function is mildly reduced. - Left atrium: The atrium is moderately dilated. - Mitral valve: There is mild to moderate regurgitation. - Pericardium, extracardiac: There is a right pleural effusion and a left pleural effusion. - Pulmonary arteries: Systolic pressure is mildly increased, estimated to be 46 mm Hg. - Patient in rate uncontrolled afib at time of study Recommendations: None prior for comparison at time of interpretation. Exam Date: 10/26/19 CTA CHEST Contrast: Administered 82.2 ml of OMNIPAQUE 350 mg/ml CTA of the chest performed after IV contrast demonstration. The pulmonary arterial tree is well opacified. There are no filling defects present to suggest pulmonary embolus. Aorta demonstrates no evidence of aortic dissection. Moderate sized bilateral pleural effusions are noted. Interstitial edema consistent with CHF is noted. Bibasilar atelectasis is noted. The liver and spleen are grossly unremarkable. IMPRESSION: Large bilateral pleural effusion with interstitial edema consistent with CHF. No definite pulmonary embolus is noted. EKG Data: 03/30/2019 NSR, PAC's, ekg 10/30/2019 afib, multiple ectopy, poor r wave progression, repolarization abnormalities Assessment/Plan 1. New onset acute systolic heart failure 2. Rate uncontrolled atrial fibrillation 3. Widely bone metastatic prostate cancer 4. Pancytopenia - complication of treatment for #3 5. HTN - Give IV digoxin 500 mcg x 1 now (ordered) - Start toprol 25 mg po bid for rate control/CHF (ordered) and uptitrate as tolerated - Change home candasartan (non formulary) to valsartan 20 mg po bid for now ( ordered) - Start lasix 20 mg IV daily (ordered) and adjust as needed, needs a lot of diuresis - Would transfuse to hemoglobin > ~ 8 per Primary service/Oncology - Check troponin with tomorrow AM labs (ordered) - Recommend to start therapeutic lovenox once ok from Hematology standpoint, plan for thoracentesis tomorrow 10/31/19 noted will hold off tonight - I am hopeful this is mostly afib/tachycardia cardiomyopathy and rate control ( and ideally rhythm control) could have the potential of LVEF normalization. We also discussed possibility of an ischemic evaluation although there is no evidence of an acute type 1 MT. Patient is unsure the aggressiveness of invasive interventions he would be willing to proceed with and would also need Oncology prognosis to help with decision making.
[2019-10-30] MEDS: Metoprolol Succinate XL TAB* 25 MG PO SCH (20:32)
[2019-10-30] MEDS: Valsartan TAB* 40 MG PO SCH (20:34)
[2019-10-30] MEDS ORDERED: Valsartan TAB* 160 MG PO SCH (21:00)
[2019-10-30 22:13] LABS: ABS Lymphocytes 0.4 10^3/ul (1.0-4.8); ABS Monocytes 0.2 10^3/ul (0-0.8); ABS Neutrophils 2.7 10^3/ul (1.5-7.7); Eosinophil % 1.1 %; Hematocrit 21 % (42-52); Hemoglobin 6.8 g/dL (14.0-18.0); Mean Corpuscular HGB Conc 32 g/dL (31-36); Mean Corpuscular Hemoglobin 29 pg (27-31); Mean Corpuscular Volume 92 fL (80-94); Mean Platelet Volume 7.8 fL (7.4-10.4); Nucleated Red Blood Cells % 0.5; Platelet Count 91 10^3/uL (150-450); Red Cell Distribution Width 22 % (10-15); White Blood Count 3.4 10^3/uL (3.5-10.8)
[2019-10-30 22:30] LABS: Anion Gap 10 mmol/L (2-11); BUN/Creatinine Ratio 13.3 (8-20); Blood Urea Nitrogen 13 mg/dL (6-24); CO2 Carbon Dioxide 23 mmol/L (22-32); Calcium 8.5 mg/dL (8.6-10.3); Chloride 106 mmol/L (101-111); EGFR African American 91.5 (>60); EGFR Non-African American 75.6 (>60); Glucose 116 mg/dL (70-100); Magnesium 1.3 mg/dL (1.9-2.7); Potassium 3.9 mmol/L (3.5-5.0); Sodium 139 mmol/L (135-145)
--- NOTE | 2019-10-30 22:38 | CONS ---
HOSPITAL MEDICINE CONSULTATION REPORT: DATE OF CONSULT: 10/30/19 PROVIDER: Jordyn Hansen NP. ATTENDING PHYSICIAN: Dr. Aguayo.* CONSULTING PHYSICIAN: Dr. Vidya Franklin (dictated by Jordyn Hansen NP). REASON FOR CONSULT: New onset atrial fibrillation and congestive heart failure. HISTORY OF PRESENT ILLNESS: Mr. Pan is a 68-year-old male with a past medical history significant for metastatic prostate cancer and hypertension, who initially presented to Hematology/Oncology office for a followup visit in regards to his CAT scan he had on 10/26/19 for the complaints of shortness of breath. While in the office, he had the complaint of worsening shortness of breath and was found to be tachycardic. An EKG was obtained and he was found to be in atrial fibrillation. So, he was admitted to the hospital for further management of his shortness of breath and atrial fibrillation. Please see dictated H and P from Martha Stokes for complete details. In brief, the patient has had ongoing shortness of breath for the past 2 months that was progressively getting worse. He reports that he is now sleeping in a recliner due to the shortness of breath. He does report when lying flat he develops wheezing and increased shortness of breath with lying flat. He does report increased ankle swelling x1 week and progressively worsening shortness of breath. He reports that he walks approximately 15 feet and has shortness of breath. He also reports wheezing with lying flat x1 week. The patient denies any dietary changes, increase of salt intake or increased weight. The patient had a recent CT of the chest on 10/26/19. At that time, it showed bilateral large pleural effusions. The initial plan by Hematology/Oncology was discussion with the patient for thoracentesis as an outpatient, but due to the finding of him being tachycardic, he was admitted. The patient had routine lab work drawn today and he was found to have an H and H of 6.2 and 19 as well as platelet count of 90. At this time, the patient denies any recent chills, denies any unintended weight loss, denies any chest pain. He does report increased swelling in his ankles x1 week. He does report a productive cough x1 week with occasional rust-colored sputum. He does report exertional shortness of breath and worsening with exertion. No nausea, vomiting, diarrhea, abdominal pain, hematuria, or dysuria. Denies any focal weakness or sensory loss. Denies any visual complaints, dysphagia, arthralgias, myalgias, rashes, lesions, open sores, psychosis, or anxiety. Of note, the patient does report he had a cystoscopy approximately 3 weeks ago and did have some hematuria post cystoscopy, which has now resolved. PAST MEDICAL HISTORY: Significant for: 1. Prostate cancer with metastatic disease to bone. 2. Hypertension. PAST SURGICAL HISTORY: 1. He has had a TURP. 2. Appendectomy. 3. Hernia repair. HOME MEDICATIONS: Include: 1. Guaifenesin 1200 mg p.o. b.i.d. p.r.n. 2. Pantoprazole 40 mg p.o. q.a.m. 3. Gaviscon 80/14.2 one chew every 6 hours as needed. 4. Hydrocodone 7.5/325 one every 6 hours as needed for pain. 5. Vitamin B12 1000 mcg p.o. daily. 6. Candesartan cilexetil 32 mg p.o. at bedtime. 7. Xtandi 160 mg p.o. daily. ALLERGIES: No known drug allergies. FAMILY HISTORY: Mother with a history of an [place]. Father with a history of stroke at the age of 79. No reported history of diabetes. Cancer: Brother with prostate cancer. SOCIAL HISTORY: Denies any tobacco. He does report rare alcohol use. Denies any illicit drug use. 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 He is a full code. REVIEW OF SYSTEMS: A 14-point review of systems was completed. All pertinent positives were mentioned in the HPI. PHYSICAL EXAM: General: At this time, Mr. Mccullough is a 68-year-old male. He is alert and oriented, resting in his hospital bed. He is in no acute distress. His skin color is pale. Vital Signs: Blood pressure 125/84, heart rate 123, respirations are 17, O2 saturation 99%, temperature is 97.4. HEENT: Head is atraumatic, normocephalic. Eyes: EOMs are intact. Sclerae are pale. Conjunctivae are pale. Mucous membranes are moist. Neck is supple. Lungs are diminished bilaterally with crackles in the bases. Cardiac: S1, S2. Irregular rate and rhythm. No rubs or gallops. Abdomen is soft and nontender. Bowel sounds are present x4. Extremities: He is able to move all 4 extremities. There is no clubbing or cyanosis. He does have mild +1 pitting edema noted to his bilateral lower extremities. Skin is intact. Neurologic: He is awake, alert, oriented x3. Speech is clear. Thought process is intact. There is no gross focal deficit. DIAGNOSTIC STUDIES/LAB DATA: WBCs were 2.9, RBCs 2.06, hemoglobin 6.2, hematocrit was 19, platelet count was 91, RDW was 22. INR was 1.27. APTT was 38.7. Sodium 138, potassium 3.8, chloride 105, carbon dioxide was 24, anion gap was 9, BUN was 11, creatinine 0.82, glucose was 110, calcium was 8.8, iron was 87, TIBC was 350, iron percent was 25, unsaturated iron was less than 335, transferrin was 250, ferritin was 541, ASTs were 15, ALTs were 3, alkaline phosphatase was 738, BNP was 368. Vitamin B12 was 309, folate was 18.8. He had an electrocardiogram that showed atrial fibrillation at a rate of 105 and ventricular bigemini, T-wave inversion in V6. IMPRESSION AND PLAN: Mr. Pan is a 68-year-old male with a past medical history significant for metastatic prostate cancer and hypertension, who was a direct admission to [facility] due to new onset atrial fibrillation and congestive heart failure. Our recommendations are as follows: 1. New onset atrial fibrillation. We will get a transthoracic echocardiogram. The patient was found to have a H and H of 6.2 and 19. I would recommend blood transfusion to a hemoglobin greater than 8 due to his new found CHF and afib. I will give him a dose of metoprolol 12.5 mg. He did receive Lasix 20 mg IV on arrival. He will have a urine blood. I have consulted Dr. Elizondo from Cardiology for further recommendations and management of his new onset atrial fibrillation. The patient does have a CHADs/VASc score of 3 and a HAS-BLED score of 2. At this time, I am going to hold of on anticoagulation as the patient is anemic with a platelet count of 90; it would be contraindicated at this time to place the patient on anticoagulation until occult bleeding is ruled out. I suspect that his atrial fibrillation is complicated by his underlying profound anemia. 2. Congestive heart failure. The patient does have congestive heart failure. We will get a transthoracic echocardiogram to evaluate his ejection fraction. Again, he has been placed on metoprolol to help slow his heart rate. He will have Lasix. He has been given a 20 mg dose of Lasix prior on arrival. He will have a 20 mg dose of IV Lasix post blood transfusion. We will continue to monitor. He will be placed on strict I's and O's and daily weights. We will monitor him on telemetry and again I have consulted Dr. Elizondo from Cardiology for further recommendations. 3. Prostate cancer. Management per Oncology. 4. Anemia. The patient does have profound anemia with a H and H of 6.2 and 19. I will transfuse 1 unit of packed red blood cells with a goal to have hemoglobin greater than 8 due to new onset atrial fibrillation and congestive heart failure. I will add iron studies, B12 and folate levels. I have also talked to Dr. Aguayo in regards to his anemia and pancytopenia, who reviewed the patient's lab work, as this could be related to bone marrow. Further management based on Oncology's recommendations. We will also send a stool for occult blood. 5. Bilateral pleural effusions. The patient does have bilateral pleural effusions. He will have a thoracentesis tomorrow as ordered by Oncology. 6. Pancytopenia. The patient does have pancytopenia with a white count of 2.7 , H and H of 6.2 and 19 and a platelet count of 91. Further recommendations based on Hematology/Oncology's review. 7. FEN: He can have a heart-healthy, no-caffeine diet. 8. Code status: He is a full code. 9. DVT prophylaxis: Will be SCDs as chemical DVT prophylaxis is contraindicated at this time due to the patient's profound anemia. TIME SPENT: Time spent on this consultation was 45 minutes, greater than half that time was spent at the bedside reviewing events leading thus far to his hospitalization, performing physical exam, and reviewing my plan of care. I have discussed this with my attending, Dr. Viday Franklin; she is in agreement with my plan. JORDYN HANSEN, WARDROBE STYLIST [id number]/[facility] #: [id number] [facility] HOSPITALFatou
[2019-10-30 22:40] LABS: Troponin I 0.04 ng/mL (<0.03)
[2019-10-30] MEDS ORDERED: Magnesium Oxide TAB* 400 MG PO ONE (22:58)
[2019-10-30] MEDS ORDERED: Magnesium Sulfate IV* 3 GM in NS 0.9% 100 ML* 100 ML IVPB ONE (23:45)
--- NOTE | 2019-10-30 23:54 | PN ---
Hospitalist Progress Note Date of Service: 10/30/19 Called by nurses for 5 beats of VT in tele around 9pm, no symptoms, Ordered bloods BMP, Mg, CBC, trop and EKG. K 3.9 Mg mildly low at 1.3 trop elevated at 0.04-> last trop in March is 0.02 Hb 6.8 EKG:no st-t changes, HR 126, QTC 560 (compared with EKG previously, QTC normal range) Patient had no complains, no chest pain, SOB improving. A+P 1. Elevated trop likely due to demand ischemia in the setting of AF with RVR - trend trop and ekg - ideally he needs antiplt and anticoag with his T2MI - however, his hb is only 6.8, i will hold off antiplt and anticoag for now 2. QTC prolongation - QTC 560 - no QTc prolongation in the past ekg - no medication potentially causing it - will replace mag with iv mag 3g - recheck electrolytes tomorrow 3. AF with RVR - rate controlled currently 80s in telemetry
[2019-10-31 06:07] LABS: Hematocrit 21 % (42-52); Hemoglobin 6.9 g/dL (14.0-18.0); Mean Corpuscular HGB Conc 33 g/dL (31-36); Mean Corpuscular Hemoglobin 31 pg (27-31); Mean Corpuscular Volume 92 fL (80-94); Mean Platelet Volume 7.7 fL (7.4-10.4); Platelet Count 82 10^3/uL (150-450); Red Blood Count 2.26 10^6 /uL (4.18-5.48); Red Cell Distribution Width 22 % (10-15)
[2019-10-31 06:19] LABS: Albumin 3.7 g/dL (3.2-5.2); Albumin/Globulin Ratio 1.4 (1-3); Calcium 9.1 mg/dL (8.6-10.3); EGFR Non-African American 79.3 (>60); Globulin 2.6 g/dL (2-4); Potassium 4.4 mmol/L (3.5-5.0); Total Bilirubin 0.7 mg/dL (0.2-1.0); Total Protein 6.3 g/dL (6.4-8.9)
[2019-10-31 06:24] LABS: Troponin I 0.05 ng/mL (<0.03)
[2019-10-31 07:08] LABS: TSH (Thyroid Stimulating Horm) 1.59 mcIU/mL (0.34-5.60)
[2019-10-31 07:44] LABS: Polychromasia 1+; Tear Drop Cells 1+
[2019-10-31 07:45] LABS: ABS Lymphocytes 0.4 10^3/ul (1.0-4.8); ABS Monocytes 0.2 10^3/ul (0-0.8); ABS Neutrophils 2.2 10^3/ul (1.5-7.7); Acanthocytes 1+; Eosinophil % 1.2 %; Lymphocyte % 13.9 %; Nucleated Red Blood Cells % 0.8
[2019-10-31] MEDS ORDERED: Furosemide IV* 10 MG/ML 2 ML VIAL (20 MG) IV SLOW PU ONE (07:50)
[2019-10-31] MEDS ORDERED: Furosemide IV* 10 MG/ML 2 ML VIAL (20 MG) IV ONE (08:00)
[2019-10-31] MEDS: Furosemide IV* 10 MG/ML 2 ML VIAL (20 MG) IV SCH (09:20)
[2019-10-31] MEDS: Cyanocobalamin TAB* 500 MCG PO SCH (09:20)
[2019-10-31] MEDS: Valsartan TAB* 40 MG PO SCH ×2 (09:20→21:21)
[2019-10-31] MEDS: Metoprolol Succinate XL TAB* 25 MG PO SCH ×2 (09:20→21:21)
[2019-10-31] MEDS: Pantoprazole TAB * 40 MG TAB PO SCH (09:20)
[2019-10-31 13:34] LABS: Body Fluid Source Pleural Fluid
--- NOTE | 2019-10-31 14:41 | PN ---
Subjective Date of Service: 10/31/19 Interval History: Patient's breathing is improved today. Patient still feels SOB with exertion. Patient denies CP, dizziness, palpitations. Patient is urinating a lot. Patient denies abdominal pain, diarrhea, hematochezia/melena, dysuria, hematuria, or other new pain. Family History: Unchanged from Admission Social History: Unchanged from Admission Past Medical History: Unchanged from Admission Objective Active Medications: Hydrocodone Bitart/Acetaminophen (Nortab 7.5/325 Liq*) 15 ml PO Q6HR PRN PRN Reason: PAIN - MODERATE Last Admin: 10/30/19 20:31 Dose: 15 ml Al Hydroxide/Mg Trisilicate (Gaviscon Chew Tab*) 1 tab.chew PO Q6HR PRN PRN Reason: INDIGESTION Cyanocobalamin (Vitamin B12 Tab*) 1,000 mcg PO DAILY [facility] Last Admin: 10/31/19 09:20 Dose: 1,000 mcg Furosemide (Lasix Iv*) 20 mg IV DAILY [facility] Last Admin: 10/31/19 09:20 Dose: 20 mg Guaifenesin (Mucinex*) 1,200 mg PO BID PRN PRN Reason: COUGH Metoprolol Succinate (Toprol Xl Tab*) 25 mg PO BID [facility] Last Admin: 10/31/19 09:20 Dose: 25 mg Pantoprazole Sodium (Protonix Tab*) 40 mg PO QAM [facility] Last Admin: 10/31/19 09:20 Dose: 40 mg Valsartan (Diovan Tab*) 20 mg PO BID [facility] Last Admin: 10/31/19 09:20 Dose: 20 mg Vital Signs - 8 hr 10/31/19 10/31/19 10/31/19 07:15 08:00 09:18 Temperature 97.0 F 97.3 F Pulse Rate 95 103 Respiratory 20 18 18 Rate Blood Pressure 113/68 137/75 (mmHg) O2 Sat by Pulse 98 98 Oximetry 10/31/19 10/31/19 10/31/19 09:33 12:08 12:47 Temperature 97.8 F 97.8 F 97.6 F Pulse Rate 95 97 89 Respiratory 18 20 17 Rate Blood Pressure 121/68 126/82 102/67 (mmHg) O2 Sat by Pulse 98 95 97 Oximetry Oxygen Devices in Use Now: None Appearance: Patient is a pale 68yo male who appears stated age and is sitting in the bed in NAD. Eyes: No Scleral Icterus, PERRLA Ears/Nose/Mouth/Throat: NL Teeth, Lips, Gums, Clear Oropharnyx, Mucous Membranes Moist Neck: NL Appearance and Movements; NL JVP, Trachea Midline Respiratory: Symmetrical Chest Expansion and Respiratory Effort, Clear to Auscultation Cardiovascular: NL Sounds; No Murmurs; No JVD, - - 1+ B/L LE edema. Irregularly Irregular Rhythm. Abdominal: NL Sounds; No Tenderness; No Distention, No Hepatosplenomegaly Lymphatic: No Cervical Adenopathy Extremities: No Clubbing, Cyanosis Skin: No Rash or Ulcers, No Nodules or Sclerosis Neurological: Alert and Oriented x 3, NL Sensation, NL Muscle Strength and Tone , - - CN II-XII intact. Result Diagrams: 10/31/19 05:49 10/31/19 05:49 Microbiology and Other Data: Microbiology 10/31/19 12:40 Gram Stain - Preliminary Body Fluid - Pleura 10/30/19 23:16 Stool Occult Blood (DIANA) - Final Stool Assess/Plan/Problems-Billing Assessment: Patient is a 68yo male with a PMH for Metastatic Prostate Cancer, pancytopenia, here with new onset afib and heart failure with preserved ejection fraction. - Patient Problems (1) HFrEF (heart failure with reduced ejection fraction) Current Visit: Yes Status: Acute Code(s): I50.20 - UNSPECIFIED SYSTOLIC ( CONGESTIVE) HEART FAILURE SNOMED Code(s): 909869053 Comment: - New EF 20-25% - Appreciate cardiology input - Concern for Tachycardia induced cardiomyopathy - May need life-vest will F/U with Cardiology. - On ARB, BB, Digoxin, Lasix - Currently weighing pros/cons of ischemic evaluation for low EF. (2) Pancytopenia Current Visit: Yes Status: Acute Code(s): D61.818 - OTHER PANCYTOPENIA SNOMED Code(s): 094790623 Comment: - Unclear cause - Transfuse to above 8 - Unlikely bone marrow invasion from prostate cancer per Hematology - May benefit from bone marrow biopsy (3) Prostate CA Current Visit: No Status: Acute Code(s): C61 - MALIGNANT NEOPLASM OF PROSTATE SNOMED Code(s): 694074576 Comment: - With widespread metastasis - Continue Enzalutamide per Heme/Onc - Not likely cause of pancytopenia per Heme/Onc (4) Hypertension Current Visit: No Status: Chronic Code(s): I10 - ESSENTIAL (PRIMARY) HYPERTENSION SNOMED Code(s): 53207769 Comment: - Normotensive - Continue Metoprolol, Valsartan and Lasix (5) DVT prophylaxis Current Visit: Yes Status: Acute Code(s): Z29.9 - ENCOUNTER FOR PROPHYLACTIC MEASURES, UNSPECIFIED SNOMED Code(s): 859593782 Comment: - SCDs in setting of pancytopenia, start lovenox tomorrow if platelets stable or increase. (6) Full code status Current Visit: Yes Status: Acute Code(s): Z78.9 - OTHER SPECIFIED HEALTH STATUS SNOMED Code(s): 080889012
[2019-10-31 15:40] LABS: Body Fluid Mono 55 %; Body Fluid Other Cells 21
[2019-10-31 16:15] LABS: Hematocrit 24 % (42-52)
[2019-10-31 16:28] LABS: Troponin I 0.05 ng/mL (<0.03)
[2019-10-31] MEDS: Digoxin TAB* 0.125 MG PO SCH (17:40)
[2019-11-01] MEDS: Pantoprazole TAB * 40 MG TAB PO SCH (08:18)
[2019-11-01] MEDS: Valsartan TAB* 40 MG PO SCH ×2 (08:19→21:26)
[2019-11-01] MEDS: Metoprolol Succinate XL TAB* 25 MG PO SCH ×2 (08:20→21:26)
[2019-11-01] MEDS: Cyanocobalamin TAB* 500 MCG PO SCH (08:20)
[2019-11-01] MEDS: Furosemide IV* 10 MG/ML 2 ML VIAL (20 MG) IV SCH (08:20)
--- NOTE | 2019-11-01 15:11 | PN ---
Subjective Date of Service: 11/01/19 Interval History: Patient reports that he is feeling better, reports his breathing is better. Denies chest pain or shortness of breath. Denies abd pain. Denies n/v/d. Denies black or tarry stools. Heart rate better controlled Spoke to Cardiology - will need repeat limit ECHO on Wednesday to evaluate EF further recommendations to follow. Family History: Unchanged from Admission Social History: Unchanged from Admission Past Medical History: Unchanged from Admission Objective Active Medications: Hydrocodone Bitart/Acetaminophen (Nortab 7.5/325 Liq*) 15 ml PO Q6HR PRN PRN Reason: PAIN - MODERATE Last Admin: 10/30/19 20:31 Dose: 15 ml Al Hydroxide/Mg Trisilicate (Gaviscon Chew Tab*) 1 tab.chew PO Q6HR PRN PRN Reason: INDIGESTION Cyanocobalamin (Vitamin B12 Tab*) 1,000 mcg PO DAILY [facility] Last Admin: 11/01/19 08:20 Dose: 1,000 mcg Digoxin (Lanoxin Tab*) 0.125 mg PO 1700 [facility] Last Admin: 10/31/19 17:40 Dose: 0.125 mg Furosemide (Lasix Iv*) 20 mg IV DAILY [facility] Last Admin: 11/01/19 08:20 Dose: 20 mg Guaifenesin (Mucinex*) 1,200 mg PO BID PRN PRN Reason: COUGH Metoprolol Succinate (Toprol Xl Tab*) 25 mg PO BID [facility] Last Admin: 11/01/19 08:20 Dose: 25 mg Pantoprazole Sodium (Protonix Tab*) 40 mg PO QAM [facility] Last Admin: 11/01/19 08:18 Dose: 40 mg Valsartan (Diovan Tab*) 20 mg PO BID [facility] Last Admin: 11/01/19 08:19 Dose: 20 mg Vital Signs - 8 hr 11/01/19 11/01/19 07:48 08:00 Temperature 98.3 F Pulse Rate 68 Respiratory 20 16 Rate Blood Pressure 135/74 (mmHg) O2 Sat by Pulse 98 Oximetry Oxygen Devices in Use Now: None Appearance: pale, appears comfortabel resting in bed , no acute distress Eyes: No Scleral Icterus Ears/Nose/Mouth/Throat: NL Teeth, Lips, Gums, Mucous Membranes Moist Neck: NL Appearance and Movements; NL JVP Respiratory: Symmetrical Chest Expansion and Respiratory Effort, - - dimished bresth sounds at the bases bilat Cardiovascular: NL Sounds; No Murmurs; No JVD, No Edema Abdominal: NL Sounds; No Tenderness; No Distention Extremities: No Edema, No Clubbing, Cyanosis Skin: No Rash or Ulcers Neurological: Alert and Oriented x 3 Nutrition: Taking PO's Result Diagrams: 10/31/19 15:55 10/31/19 05:49 Microbiology and Other Data: Microbiology 10/31/19 12:40 Gram Stain - Preliminary Body Fluid - Pleura 10/30/19 23:16 Stool Occult Blood (DIANA) - Final Stool Assess/Plan/Problems-Billing Assessment: Patient is a 68yo male with a PMH for Metastatic Prostate Cancer, pancytopenia, here with new onset afib and heart failure with preserved ejection fraction. - Patient Problems (1) HFrEF (heart failure with reduced ejection fraction) Current Visit: Yes Status: Acute Code(s): I50.20 - UNSPECIFIED SYSTOLIC ( CONGESTIVE) HEART FAILURE SNOMED Code(s): 358941034 Comment: - New EF 20-25% - Appreciate cardiology input - Concern for Tachycardia induced cardiomyopathy- will need repeat limit echo on Wednesday per cardiology - May need life-vest will F/U with Cardiology. - On ARB, BB, Digoxin, Lasix - Currently weighing pros/cons of ischemic evaluation for low EF. (2) Pancytopenia Current Visit: Yes Status: Acute Code(s): D61.818 - OTHER PANCYTOPENIA SNOMED Code(s): 937736136 Comment: - Unclear cause - Transfuse to above 8 - hgb 8 today-will repeat in the AM - Unlikely bone marrow invasion from prostate cancer per Hematology - May benefit from bone marrow biopsy (3) Prostate CA Current Visit: No Status: Acute Code(s): C61 - MALIGNANT NEOPLASM OF PROSTATE SNOMED Code(s): 112972031 Comment: - With widespread metastasis - Continue Enzalutamide per Heme/Onc - Not likely cause of pancytopenia per Heme/Onc (4) Hypertension Current Visit: No Status: Chronic Code(s): I10 - ESSENTIAL (PRIMARY) HYPERTENSION SNOMED Code(s): 05230632 Comment: - Normotensive - Continue Metoprolol, Valsartan and Lasix (5) DVT prophylaxis Current Visit: Yes Status: Acute Code(s): Z29.9 - ENCOUNTER FOR PROPHYLACTIC MEASURES, UNSPECIFIED SNOMED Code(s): 964291445 Comment: - SCDs in setting of pancytopenia (6) Full code status Current Visit: Yes Status: Acute Code(s): Z78.9 - OTHER SPECIFIED HEALTH STATUS SNOMED Code(s): 611033960 Status and Disposition: Inpatient
[2019-11-01] MEDS: Digoxin TAB* 0.125 MG PO SCH (16:03)
[2019-11-02 05:17] LABS: Calcium 8.9 mg/dL (8.6-10.3); EGFR African American 115.6 (>60); EGFR Non-African American 95.6 (>60); Magnesium 1.8 mg/dL (1.9-2.7); Potassium 3.5 mmol/L (3.5-5.0)
[2019-11-02 05:33] LABS: ABS Lymphocytes 0.4 10^3/ul (1.0-4.8); ABS Monocytes 0.2 10^3/ul (0-0.8); ABS Neutrophils 1.8 10^3/ul (1.5-7.7); Eosinophil % 1.8 %; Hematocrit 23 % (42-52); Hemoglobin 7.8 g/dL (14.0-18.0); Mean Corpuscular HGB Conc 34 g/dL (31-36); Mean Corpuscular Hemoglobin 31 pg (27-31); Mean Corpuscular Volume 92 fL (80-94); Mean Platelet Volume 7.8 fL (7.4-10.4); Nucleated Red Blood Cells % 0.4; Platelet Count 72 10^3/uL (150-450); Red Blood Count 2.52 10^6 /uL (4.18-5.48); Red Cell Distribution Width 21 % (10-15); White Blood Count 2.4 10^3/uL (3.5-10.8)
[2019-11-02] MEDS: Metoprolol Succinate XL TAB* 25 MG PO SCH ×2 (09:44→21:11)
[2019-11-02] MEDS ORDERED: Furosemide IV* 10 MG/ML 2 ML VIAL (20 MG) IV SLOW PU ONE (09:44)
[2019-11-02] MEDS: Cyanocobalamin TAB* 500 MCG PO SCH (09:44)
[2019-11-02] MEDS: Valsartan TAB* 40 MG PO SCH ×2 (09:44→21:11)
[2019-11-02] MEDS: Pantoprazole TAB * 40 MG TAB PO SCH (09:44)
[2019-11-02] MEDS: Furosemide IV* 10 MG/ML 2 ML VIAL (20 MG) IV SCH ×2 (09:44→12:20)
[2019-11-02] MEDS ORDERED: Lidocaine 2% PF * 5 ML VIAL INJ ONE (09:50)
--- NOTE | 2019-11-02 09:50 | PN ---
Progress Note - Progress Note Date of Service: 11/02/19 SOAP: Subjective: []Feeling well overall today. Breathing has improved since admission. No chest pain or pressure. Up and walking around without dizziness, severe SOB , or cardiac symptoms. Aware of need for biopsy and denies questions. Medications: Hydrocodone Bitart/Acetaminophen (Nortab 7.5/325 Liq*) 15 ml PO Q6HR PRN PRN Reason: PAIN - MODERATE Last Admin: 10/30/19 20:31 Dose: 15 ml Al Hydroxide/Mg Trisilicate (Gaviscon Chew Tab*) 1 tab.chew PO Q6HR PRN PRN Reason: INDIGESTION Cyanocobalamin (Vitamin B12 Tab*) 1,000 mcg PO DAILY [facility] Last Admin: 11/01/19 08:20 Dose: 1,000 mcg Digoxin (Lanoxin Tab*) 0.125 mg PO 1700 [facility] Last Admin: 11/01/19 16:03 Dose: 0.125 mg Furosemide (Lasix Iv*) 20 mg IV DAILY [facility] Last Admin: 11/01/19 08:20 Dose: 20 mg Guaifenesin (Mucinex*) 1,200 mg PO BID PRN PRN Reason: COUGH Metoprolol Succinate (Toprol Xl Tab*) 25 mg PO BID [facility] Last Admin: 11/01/19 21:26 Dose: 25 mg Pantoprazole Sodium (Protonix Tab*) 40 mg PO QAM [facility] Last Admin: 11/01/19 08:18 Dose: 40 mg Valsartan (Diovan Tab*) 20 mg PO BID [facility] Last Admin: 11/01/19 21:26 Dose: 20 mg Objective: [] Vital Signs Temp Pulse Resp BP Pulse Ox 97.3 F 93 20 129/63 99 11/02/19 07:55 11/02/19 07:55 11/02/19 07:55 11/02/19 07:55 11/02/19 07:55 A&Ox3, EOMI, neuro grossly non-focal HRI, tele A.Fib rate controlled LS dim. bases with improved airflow since admission Trace pedal edema Laboratory Results - last 24 hr 11/02/19 11/02/19 04:45 04:45 WBC 2.4 L RBC 2.52 L Hgb 7.8 L Hct 23 L MCV 92 MCH 31 MCHC 34 RDW 21 H Plt Count 72 L MPV 7.8 Neut % (Auto) 73.4 Lymph % (Auto) 15.0 [place] % (Auto) 9.1 Eos % (Auto) 1.8 Baso % (Auto) 0.7 Absolute Neuts (auto) 1.8 Absolute Lymphs (auto) 0.4 L Absolute Monos (auto) 0.2 Absolute Eos (auto) 0.0 Absolute Basos (auto) 0.0 Absolute Nucleated RBC 0.0 Nucleated RBC % 0.4 Sodium 139 Potassium 3.5 Chloride 105 Carbon Dioxide 26 Anion Gap 8 BUN 16 Creatinine 0.80 Est GFR ( Amer) 115.6 Est GFR (Non-Af Amer) 95.6 BUN/Creatinine Ratio 20.0 Glucose 104 H Calcium 8.9 Magnesium 1.8 L Assessment: []68 yo male with metastatic prostate cancer presenting to the office with progressive SOB, CT showing bilat. pleural effusions, and found to be in A.Fib with RVR as well as panctyopenic. Work-up confirms new diagnosis of A.Fib. and CHF with EF 20-25%. He has had some improvement in breathing following thoracentesis and overall appears stable today. His normocytic anemia, thrombocytopenia, and mild leukopenia are concerning for an additional underlying bone marrow process. Differential includes 2/2 radiation suppression (though seems more singificant), treatment effect (way more significant than expected), bone marrow infiltration of prostate cancer ( uncommon), and primary bone marrow process. We will proceed with bone marrow biopsy today, procedure, risks, and benefits reviewed. Plan: []Bone marrow biopsy and aspirate, flow and cytogenetics today Agree with blood transfusion, goal hmg >/=9 d/t cardiac condition Cardiac management per hospitalist team
[2019-11-02] MEDS ORDERED: Loperamide CAP* 2 MG PO PRN (10:21)
--- NOTE | 2019-11-02 11:07 | BRIEFOPN ---
Brief Operative/Procedure Note - Operation Details Pre-Op Diagnosis: Pancytopenia with normocytic anemia Post-Op Diagnosis: Pancytopenia with normocytic anemia Procedures: Bone marrow biopsy and aspirate Surgeon(s)/Proceduralists: MOIRA Vazquez. attending: MD Karlene Anesthesia: 2% lidocaine, approx. 8 mLs Estimated Blood Loss: scant Findings: Informed consent obtained, time our performed per protocol. Anesthesia 2% lidocaine, approx. 8 mLs, administered with good effect. Bone marrow biopsy to left posterior iliac crest performed without obvious complication. Dry tap x3 attempts. Pt. tolerated well. Specimen(s)/Culture(s) Description: dry tap x3. ~1 cm core Complications: no obvious complications
[2019-11-02 12:10] LABS: Lactate Dehydrogenase, BF 92 U/L
[2019-11-02] MEDS ORDERED: Perflutren Lipid Microsphere* 3 ML VIAL ONE (12:24)
--- NOTE | 2019-11-02 13:35 | ECHO ---
*[facility]* [place] [address] Fax #: [phone] Limited Transthoracic Echocardiogram Patient: Kameron Pan : 1950 Study Date: 11/02/2019 Age: 68 Gender: M HR: 82 bpm Height: 70.9 in /180 cm BSA: 2.22 m^2 Weight: 211.6 lb /96.2 kg BMI: 29.7 kg/m^2 *Focusing Machine Operator: * Windy Faustin *Referring Physician: * Uche Cartagena *Reading Physician: * Blanca Jalloh MD Indications: Congestive Heart Failure. History: Atrial fibrillation. Risk factors: Hypertension. Dyslipidemia. Conclusions Summary: - Left ventricle: Systolic function is severely reduced. The estimated ejection fraction is 20-25%. Systolic function is unchanged from the previous study. - Very limited echocardiogram for f/u left ventricle ejection fraction. Left ventricle ejection fraction still severely reduced. Was reported 20-25% globally on 10/30/2019. Study data: Transthoracic echocardiogram, limited study. Procedure: Transthoracic echocardiography was performed. Image quality was suboptimal. Intravenous Definity , 4 mlswas administered. Location: Bedside. Patient status: Inpatient. Patient room number: 443-2. Rhythm: Atrial fibrillation. Findings Left ventricle: Systolic function is severely reduced. The estimated ejection fraction is 20-25%. Systolic function is unchanged from the previous study. There is no evidence of a thrombus. Prepared and electronically signed by Blanca Jalloh MD 11/02/2019 13:35
--- NOTE | 2019-11-02 15:24 | PN ---
Subjective Date of Service: 11/02/19 Interval History: Patient is feeling well. Patient has baseline pain. Patient is no longer SOB, even with exertion. Patient denies chest pain, Patient has minor diarrhea without abdominal pain or melena/hematochezia. Patient denies F/C, N/V, or other pain. Family History: Unchanged from Admission Social History: Unchanged from Admission Past Medical History: Unchanged from Admission Objective Active Medications: Hydrocodone Bitart/Acetaminophen (Nortab 7.5/325 Liq*) 15 ml PO Q6HR PRN PRN Reason: PAIN - MODERATE Last Admin: 10/30/19 20:31 Dose: 15 ml Al Hydroxide/Mg Trisilicate (Gaviscon Chew Tab*) 1 tab.chew PO Q6HR PRN PRN Reason: INDIGESTION Cyanocobalamin (Vitamin B12 Tab*) 1,000 mcg PO DAILY [facility] Last Admin: 11/02/19 09:44 Dose: 1,000 mcg Digoxin (Lanoxin Tab*) 0.125 mg PO 1700 [facility] Last Admin: 11/01/19 16:03 Dose: 0.125 mg Furosemide (Lasix Iv*) 20 mg IV DAILY [facility] Last Admin: 11/02/19 12:20 Dose: 20 mg Guaifenesin (Mucinex*) 1,200 mg PO BID PRN PRN Reason: COUGH Loperamide HCl (Imodium Cap*) 2 mg PO .SEE DIRECTIONS PRN PRN Reason: DIARRHEA Metoprolol Succinate (Toprol Xl Tab*) 25 mg PO BID [facility] Last Admin: 11/02/19 09:44 Dose: 25 mg Pantoprazole Sodium (Protonix Tab*) 40 mg PO QAM [facility] Last Admin: 11/02/19 09:44 Dose: 40 mg Valsartan (Diovan Tab*) 20 mg PO BID [facility] Last Admin: 11/02/19 09:44 Dose: 20 mg Vital Signs - 8 hr 11/02/19 11/02/19 11/02/19 07:55 08:00 11:15 Temperature 97.3 F 97.9 F Pulse Rate 93 65 Respiratory 20 20 20 Rate Blood Pressure 129/63 111/52 (mmHg) O2 Sat by Pulse 99 100 Oximetry 11/02/19 11/02/19 12:20 12:35 Temperature 97.0 F 97.1 F Pulse Rate 94 97 Respiratory 18 20 Rate Blood Pressure 112/53 134/54 (mmHg) O2 Sat by Pulse 98 97 Oximetry Oxygen Devices in Use Now: None Appearance: Patient is a 68yo male who appears stated age and is sitting in the bed in NAD. Eyes: No Scleral Icterus, PERRLA Ears/Nose/Mouth/Throat: NL Teeth, Lips, Gums, Clear Oropharnyx, Mucous Membranes Moist Neck: NL Appearance and Movements; NL JVP, Trachea Midline Respiratory: Symmetrical Chest Expansion and Respiratory Effort, - - Diminished in LLL. Improved aeration in RLL. Cardiovascular: NL Sounds; No Murmurs; No JVD, RRR, - - 1+ B/L LE edema. Abdominal: NL Sounds; No Tenderness; No Distention, No Hepatosplenomegaly Lymphatic: No Cervical Adenopathy Extremities: No Clubbing, Cyanosis Skin: No Rash or Ulcers, No Nodules or Sclerosis Neurological: Alert and Oriented x 3, NL Sensation, NL Muscle Strength and Tone , - - CN II-XII intact. Result Diagrams: 11/02/19 04:45 11/02/19 04:45 Microbiology and Other Data: Microbiology 10/31/19 12:40 Gram Stain - Preliminary Body Fluid - Pleura 10/30/19 23:16 Stool Occult Blood (DIANA) - Final Stool Assess/Plan/Problems-Billing Assessment: Patient is a 68yo male with a PMH for Metastatic Prostate Cancer, pancytopenia, here with new onset afib and heart failure with preserved ejection fraction. - Patient Problems (1) HFrEF (heart failure with reduced ejection fraction) Current Visit: Yes Status: Acute Code(s): I50.20 - UNSPECIFIED SYSTOLIC ( CONGESTIVE) HEART FAILURE SNOMED Code(s): 350047757 Comment: - Acute Heart Failure with reduced ejection fraction - New EF 20-25% - Appreciate cardiology input - Concern for Tachycardia induced cardiomyopathy- Echo shows persistently low EF. - May need life-vest will F/U with Cardiology. - On ARB, BB, Digoxin, Lasix - Stress test in AM - Likely transudative pleural effusion (LDH <.5 of serum and ULN for lab) - Protein pending. (2) Afib Current Visit: Yes Status: Acute Code(s): I48.91 - UNSPECIFIED ATRIAL FIBRILLATION SNOMED Code(s): 83533080 Comment: - Rate controlled on Digoxin and metoprolol - No anticoagulated due to thrombocytopenia (3) Pancytopenia Current Visit: Yes Status: Acute Code(s): D61.818 - OTHER PANCYTOPENIA SNOMED Code(s): 718311396 Comment: - Unclear cause - Transfuse 1u again today with goal of 8 (7.8 this AM) - Unlikely bone marrow invasion from prostate cancer per Hematology - Bone Marrow Biopsy done today. (4) Prostate CA Current Visit: No Status: Acute Code(s): C61 - MALIGNANT NEOPLASM OF PROSTATE SNOMED Code(s): 840644190 Comment: - With widespread metastasis - Continue Enzalutamide per Heme/Onc - Not likely cause of pancytopenia per Heme/Onc (5) Hypertension Current Visit: No Status: Chronic Code(s): I10 - ESSENTIAL (PRIMARY) HYPERTENSION SNOMED Code(s): 38704657 Comment: - Normotensive - Continue Metoprolol, Valsartan and Lasix (6) DVT prophylaxis Current Visit: Yes Status: Acute Code(s): Z29.9 - ENCOUNTER FOR PROPHYLACTIC MEASURES, UNSPECIFIED SNOMED Code(s): 760387337 Comment: - SCDs in setting of pancytopenia (7) Full code status Current Visit: Yes Status: Acute Code(s): Z78.9 - OTHER SPECIFIED HEALTH STATUS SNOMED Code(s): 405279091 Status and Disposition: Inpatient
[2019-11-02 15:40] LABS: Fluid Type, Glucose PLEURAL
[2019-11-02] MEDS ORDERED: Magnesium Sulfate 1 GM IV* 1 GM/100 ML BAG IV ONE (16:00)
[2019-11-02 16:14] LABS: Fluid Type, Protein, Total PLEURAL
[2019-11-02] MEDS: Digoxin TAB* 0.125 MG PO SCH (16:14)
[2019-11-03] MEDS ORDERED: Magnesium Sulfate 2 GM IV* 2 GM/50 ML BAG IVPB ONE (07:05)
[2019-11-03] MEDS ORDERED: Aminophylline IV* 25 MG/ML 10 ML VIAL ONE (08:26)
[2019-11-03] MEDS ORDERED: Regadenoson* 0.4 MG/5 ML SYRINGE ONE (08:26)
[2019-11-03 08:28] LABS: BUN/Creatinine Ratio 17.3 (8-20); Calcium 8.7 mg/dL (8.6-10.3); EGFR Non-African American 94.2 (>60); Magnesium 1.9 mg/dL (1.9-2.7); Potassium 3.6 mmol/L (3.5-5.0)
[2019-11-03 08:30] VITALS: BP 123/83
[2019-11-03 08:43] LABS: ABS Lymphocytes 0.4 10^3/ul (1.0-4.8); ABS Monocytes 0.3 10^3/ul (0-0.8); ABS Neutrophils 2.5 10^3/ul (1.5-7.7); Eosinophil % 1.4 %; Hematocrit 27 % (42-52); Hemoglobin 9.4 g/dL (14.0-18.0); Lymphocyte % 11.6 %; Mean Corpuscular HGB Conc 35 g/dL (31-36); Mean Corpuscular Hemoglobin 32 pg (27-31); Mean Corpuscular Volume 92 fL (80-94); Mean Platelet Volume 8.2 fL (7.4-10.4); Nucleated Red Blood Cells % 0.3; Platelet Count 87 10^3/uL (150-450); Red Blood Count 2.98 10^6 /uL (4.18-5.48); Red Cell Distribution Width 21 % (10-15); White Blood Count 3.2 10^3/uL (3.5-10.8)
[2019-11-03] MEDS: Valsartan TAB* 40 MG PO SCH (10:10)
[2019-11-03] MEDS: Cyanocobalamin TAB* 500 MCG PO SCH (10:10)
[2019-11-03] MEDS: Pantoprazole TAB * 40 MG TAB PO SCH (10:10)
[2019-11-03] MEDS: Furosemide IV* 10 MG/ML 2 ML VIAL (20 MG) IV SCH (10:10)
[2019-11-03] MEDS: Metoprolol Succinate XL TAB* 25 MG PO SCH (10:10)
--- NOTE | 2019-11-04 00:13 | DS ---
CC: Dr. Oquendo: Dr. Rg Sharma; Dr. Blanca Jalloh * DISCHARGE SUMMARY: DATE OF ADMISSION: 10/30/19 DATE OF DISCHARGE: 11/03/19 PRIMARY CARE PROVIDER: Dr. Oquendo. MY ATTENDING WHILE IN THE HOSPITAL: Dr. Arleth Krishnamurthy.* (DICTATED BY CARLOS CEDILLO) OUTPATIENT SINGING TELEGRAM PERFORMER/ONCOLOGIST: Dr. Rg Sharma. OUTPATIENT BUYER LIAISON: Dr. Blanca Jalloh. PRIMARY DISCHARGE DIAGNOSES: 1. Atrial fibrillation. 2. Acute heart failure with reduced ejection fraction. 3. Likely tachycardia induced cardiomyopathy. 4. Pancytopenia with disproportionate anemia. 5. Bilateral transudative pleural effusions. STUDIES DONE WHILE IN THE HOSPITAL: Transthoracic echocardiogram from 10/30/19 , read as left ventricular cavity size dilated; wall thickness at the upper limits of normal; systolic function is severely reduced; estimated ejection fraction is 20% to 25%; severe diffuse hypokinesis with regional variation; right ventricular chamber size upper limits of normal; systolic function is mildly reduced; left atrium is mildly dilated; mitral valve with mild to moderate regurgitation. Pericardium, there is slight right pleural effusion and left pleural effusion. Pulmonary artery systolic pressure is mildly elevated. The patient had rate uncontrolled at the time of the study. Electrocardiogram from 10/30/19. Thoracentesis and paracentesis ultrasound read as except for ultrasound-guided localization thoracentesis, 1 L of serosanguineous fluid in the right hemothorax. Chest x-ray from 10/31/19 read as pulmonary interstitial edema, small bilateral pleural effusions, no appreciable pneumothorax. Repeat transthoracic echocardiogram limited to the left ventricle shows EF of 20% to 25%. Nuclear medicine scan 11/03/19, read as decreased ejection fraction, no definite fixed reversible perfusion defects, bilateral pleural effusions, and read as intermediate risk. EF read as 39%, TID of 0.99. MEDICATIONS AT DISCHARGE: 1. Pantoprazole 40 mg p.o. daily. 2. Candesartan 32 mg p.o. at bedtime. 3. Vitamin B12 1000 mcg p.o. daily. 4. Guaifenesin 1200 mg p.o. b.i.d. as needed. 5. Gaviscon 1 to 2 q.6 hours as needed. 6. Xtandi 160 mg p.o. daily. 7. [place] 7.5/325 one tab p.o. q.6 hours as needed. 8. Digoxin 0.25 mg p.o. daily. 9. Furosemide 20 mg p.o. daily. 10. Metoprolol succinate 25 mg p.o. b.i.d.. New medications at discharge: 1. Digoxin. 2. Furosemide. 3. Metoprolol. Medications discontinued at discharge: None. HOSPITAL COURSE: This is a brief summary of patient's presentation, for more details, please see history and physical from Martha Stokes NP on 10/30/19. In brief, the patient is a 68-year-old male with past medical history significant mainly for prostate cancer with extensive metastasis to the lumbar spine and pelvis as well as the ribs, status post hormonal therapy and radiation therapy, who started for approximately 1 month before as admission with shortness of breath, cough and congestion. This got progressively worse over 1 month and CTA was ordered outpatient on 10/26/19 which showed bilateral pleural effusions , enlarged heart and possible pulmonary interstitial edema. Due to the patient had outward signs of fluid overload including orthopnea and lower extremity edema, the patient was found to be in atrial fibrillation with rapid ventricular response and was referred to the hospital. The patient in the hospital was found to be markedly anemic at 6.3 with a while blood cell count of 2.7 and platelet count of 93. Iron profile was significant only for an elevated ferritin. Normal B12 and folate and slightly elevated troponin. The patient was admitted to the hospital. The patient was seen in consultation by Dr. Morgan Elizondo of Cardiology, who recommended rate control with digoxin and metoprolol as above, continuation of ARB therapy. The patient had a thoracentesis, which showed a transudative effusion with 0 of 3 Light's criteria met with significant improvement in his breathing. The patient had diuresis with IV Lasix and his shortness of breath improved greatly. The patient's troponin peaked at 0.5. The patient had a total of 3 units of blood during his hospitalization with the goal of getting his hemoglobin above 8. The patient's hemoglobin on the day of his discharge was 9.4, which was an appropriate increase after 3 units from 6.3. The patient had signs of ongoing blood loss. The patient had a bone marrow biopsy while inpatient by Hematology/ Oncology to assess for a primary bone marrow process causing his pancytopenia. The patient had a repeat echocardiogram on 11/02/19, which showed a persistently decreased ejection fraction and then had a nuclear medicine stress test on 11/03/19 which showed no fixed or reversible perfusion defects. The patient at that time had significantly increased functional capacity. He was able to ambulate around the unit without getting short of breath and had no ongoing orthopnea nor lower extremity edema. The patient was stable and amenable for discharge on 11/03/19. PHYSICAL EXAMINATION ON THE DAY OF DISCHARGE: The patient is a 68-year-old pale male who appears stated age, sitting comfortably in the bed, in no acute distress. Vital Signs: Temperature 97.6, pulse rate 84, respiratory rate 20, oxygen saturation 93% on room air, blood pressure 123/83. HEENT: Head: Normocephalic atraumatic. Sclerae anicteric. No conjunctival injection. Nasal mucosa moist. Oral mucosa moist. No oropharyngeal erythema, discharge or exudate. Mucosal pallor. Neck: Supple, nontender. No lymphadenopathy. No carotid bruits. No JVDs. Cardiac: Irregularly irregular rhythm with rate from 80 to 100. No other adventitious heart sounds. Pulses are 2+ in the dorsalis pedis, posterior tibialis and radial areas. No bilateral lower extremity edema noted. Respiratory: Clear to auscultation bilaterally. No wheezes, rales, rhonchi. Good air exchange bilaterally. Abdomen: Soft, nontender, nondistended. Bowel sounds present and normoactive in all 4 quadrants. No hepatosplenomegaly. No abdominal bruits are auscultated. No hepatojugular reflux. Genitourinary: No suprapubic or CVA tenderness. Skin: Clear,dry and intact. No rash. Neuro: Cranial nerves II through XII intact. No focal deficits. Alert and oriented x3. Psychiatric: Pleasant and cooperative. DISCHARGE PLAN BY PROBLEM: 1. Acute heart failure with reduced ejection fraction. The most likely cause of the patient's newly reduced ejection fraction is tachycardia induced cardiomyopathy from his atrial fibrillation likely brought on by his anemia. The patient is currently rate controlled with digoxin and metoprolol and has been transfused as above his predetermined goal of 8. The patient will be continued on digoxin, metoprolol and should follow up with his primary care provider. The patient will be continued on his candesartan. It should be considered to start patient on either spironolactone or Entresto or both depending on his clinical course. The patient is currently not markedly symptomatic. The patient should follow his weight and bring these weights to his followup appointments. The patient should follow up with his primary care provider within 1 week and his services tech within 1 month. 2. Atrial fibrillation. The patient had RVR on admission. The patient is now currently rate controlled. The patient has not been anticoagulated at this time due to his anemia and thrombocytopenia. If these values are noted to be stable on subsequent measurements, discussion should be made with patient's primary and his auto transport driver/oncologist for therapeutic anticoagulation for primary prevention of stroke. The patient's CHADS-VASc score is 3, which would generally warrant a therapeutic anticoagulation. 3. Prostate cancer. The patient should continue to follow up with his auto transport driver/oncologist for his prostate cancer and continue on his Xtandi. 4. Pancytopenia. The cause of this is unclear. Bone marrow biopsy is pending. Radiation therapy to the pelvis as well as castration therapy or direct bone marrow invasion from the patient's prostate cancer are all on the differential, though none of these are definitive and a secondary process may be at play. The patient has no obvious source of bleeding. 5. Pleural effusions. These are very likely transudative given the patient's negative Light's criteria /3. 6. Hypertension. Continue with metoprolol, candesartan and furosemide. DISPOSITION: Home. CONDITION: Stable. TIME SPENT: Approximately 60 minutes spent on the discharge of this patient, 30 of which spent [id number] with the patient obtaining history and physical and discussing treatment plan. CARLOS CEDILLO [id number]/[facility] #: [id number] RODRIGUEZ
== END 2019-11-03 13:21 | disposition home or self-care (01) | DRG 291 ==
LOC: MEDTELE 12:38 → OBSVTOIN 15:25
PROVIDERS: ADMIT Internal Medicine Hematology & Oncology; ATTEND Internal Medicine
PROC: 0W993ZZ Drainage of Right Pleural Cavity, Percutaneous Approach (ICD-10-PCS; principal; 2019-10-31)
PROC: 30233N1 Transfusion of Nonautologous Red Blood Cells into Peripheral Vein, Percutaneous Approach (ICD-10-PCS; 2019-11-02)
PROC: 4A02XM4 Measurement of Cardiac Total Activity, External Approach (ICD-10-PCS; 2019-11-03)
PROC: 07DR3ZX Extraction of Iliac Bone Marrow, Percutaneous Approach, Diagnostic (ICD-10-PCS; 2019-11-03)
DX: I11.0 Hypertensive heart disease with heart failure (principal); I50.21 Acute systolic (congestive) heart failure; C79.51 Secondary malignant neoplasm of bone; I47.2 Ventricular tachycardia; J90 Pleural effusion, not elsewhere classified; D61.818 Other pancytopenia; E78.00 Pure hypercholesterolemia, unspecified; I48.91 Unspecified atrial fibrillation; C61 Malignant neoplasm of prostate; I42.8 Other cardiomyopathies; R79.89 Other specified abnormal findings of blood chemistry; Z87.891 Personal history of nicotine dependence; Z92.3 Personal history of irradiation; Z79.899 Other long term (current) drug therapy
CPT/HCPCS: 32555; 36415; 36592; 38222; 71046; 78452; 80048; 80053; 82272; 82607; 82728; 82746; 82945; 83540; 83550; 83615; 83735; 83880; 84157; 84443; 84484; 85014; 85018; 85025; 85060; 85097; 85610; 85730; 86850; 86900; 86901; 86922; 87040; 87205; 88112; 88305; 88341; 88342; 89051; 93005; 93017; 93306; 93308; 99215; 99222; 99233; A9270-GY; A9502; C8929; G0463; J0280; J1160; J1940; J2785; J3475; P9040

== ENCOUNTER 2019-12-05 18:23 | Inpatient (IN) | payer MEDICARE, BC ==
[2019-12-05] MEDS ORDERED: Propofol* 100 ML IV ONE (18:26)
[2019-12-05] MEDS ORDERED: Amiodarone 360 MG IVPREMIX* 360 MG/200 ML BAG IV ONE (18:26)
[2019-12-05] MEDS ORDERED: Propofol* 100 ML ONE (18:31)
[2019-12-05 18:41] LABS: Hematocrit 27 % (42-52); Mean Corpuscular HGB Conc 33 g/dL (31-36); Mean Corpuscular Hemoglobin 32 pg (27-31); Mean Corpuscular Volume 97 fL (80-94); Mean Platelet Volume 7.9 fL (7.4-10.4); Platelet Count 180 10^3/uL (150-450); Red Blood Count 2.82 10^6 /uL (4.18-5.48); Red Cell Distribution Width 22 % (10-15); White Blood Count 5.6 10^3/uL (3.5-10.8)
[2019-12-05] MEDS ORDERED: Amiodarone DRIP* 1.8 MG/ML 200 ML IV ONE (18:42)
[2019-12-05 19:01] LABS: Digoxin 0.6 ng/ml (0.8-2.0)
[2019-12-05 19:02] LABS: ALT 42 U/L (7-52); AST 102 U/L (13-39); Albumin 3.5 g/dL (3.2-5.2); Albumin/Globulin Ratio 1.6 (1-3); Alkaline Phosphatase 704 U/L (34-104); Anion Gap 16 mmol/L (2-11); BUN/Creatinine Ratio 9.9 (8-20); Blood Urea Nitrogen 9 mg/dL (6-24); CO2 Carbon Dioxide 18 mmol/L (22-32); Chloride 105 mmol/L (101-111); EGFR African American 99.4 (>60); EGFR Non-African American 82.1 (>60); Globulin 2.2 g/dL (2-4); Glucose 262 mg/dL (70-100); Magnesium 1.4 mg/dL (1.9-2.7); Potassium 3.2 mmol/L (3.5-5.0); Sodium 139 mmol/L (135-145); Total Protein 5.7 g/dL (6.4-8.9)
[2019-12-05 19:09] LABS: Troponin I 0.06 ng/mL (<0.03)
[2019-12-05 19:16] LABS: TSH (Thyroid Stimulating Horm) 7.42 mcIU/mL (0.34-5.60)
[2019-12-05] MEDS ORDERED: Magnesium Sulfate 2 GM IV* 2 GM/50 ML BAG IVPB ONE (19:28)
[2019-12-05] MEDS ORDERED: KCL 20 MEQ/100 ML IVPREMIX* 20 MEQ/100 ML BAG IV ONE (19:28)
[2019-12-05 19:58] LABS: Urine Bacteria Absent (Absent); Urine Red Blood Cell 1+(3-5/hpf) (Absent); Urine White Blood Cell 2+(11-20/hpf) (Absent)
[2019-12-05 20:00] LABS: Urine Appearance Clear; Urine Bilirubin Negative (Negative); Urine Blood 1+ (Negative); Urine Color Yellow; Urine Glucose 1+(50 mg/dL) (Negative); Urine Ketones Negative (Negative); Urine Nitrite Negative (Negative); Urine Protein 3+(>=500 mg/dL) (Negative); Urine Specific Gravity 1.016 (1.010-1.030); Urine Urobilinogen Negative (Negative)
[2019-12-05 20:01] LABS: Polychromasia 1+
[2019-12-05 20:03] LABS: ABS Lymphocytes 1.8 10^3/ul (1.0-4.8); ABS Monocytes 0.4 10^3/ul (0-0.8); ABS Neutrophils 3.4 10^3/ul (1.5-7.7); Eosinophil % 0.8 %; Lymphocyte % 31.7 %; Nucleated Red Blood Cells % 0.1
[2019-12-05 20:26] LABS: INR 1.24 (0.82-1.09)
[2019-12-05 20:26] LABS: Free T4 0.93 ng/dL (0.61-1.12)
[2019-12-05] MEDS: Metoprolol Tartrate IV* 1 MG/ML 5 ML VIAL IV SCH (20:33)
[2019-12-05] MEDS: Propofol* 100 ML IV SCH (21:15)
[2019-12-05] MEDS: Pantoprazole IV* 40 MG IV SCH (22:06)
[2019-12-05] MEDS: Heparin VIAL(*) 5000 UNITS/ML VIAL (FIVE THOUSAND) SUBCUT SCH (22:06)
[2019-12-05] MEDS ORDERED: Metoprolol Tartrate IV* 1 MG/ML 5 ML VIAL IV ONE (22:25)
[2019-12-05 22:44] LABS: Troponin I 0.29 ng/mL (<0.03)
--- NOTE | 2019-12-05 22:46 | HP ---
CC: Dr. Oquendo; Dr. Sharma; Dr. Dunn HISTORY AND PHYSICAL: DATE OF ADMISSION: 12/05/19 PRIMARY CARE PROVIDER: Dr. Oquendo. ONCOLOGIST: Dr. Sharma. COMPUTER FIELD TECHNICIAN: Dr. Dunn. CHIEF COMPLAINT: Cardiac arrest. HISTORY OF PRESENT ILLNESS: Mr. Pan is a 69-year-old male who was hospitalized at [facility] [place] [facility] from 10/30 through 11/03/19 where he was identified to be in rapid atrial fibrillation with a significantly reduced systolic ejection fraction. The patient was started on medical management for his a-fib and systolic dysfunction. The patient followed up with Dr. Dunn in the office on 11/14/19. At that odalys e, the hope was that the patient would have improvement in his overall ejection fraction with medical management and rate control of his atrial fibrillation. The patient underwent a transthoracic echoc ardiogram earlier today, the day of admission. The patient's states that the patient was in the living room, sitting in his recliner, watching TV. She heard him snore. She thought he probably fe ll asleep while watching TV, however, it was sounded abnormal to her. Therefore, she went to the mariano ing room to check on him. She found him slumped over in the chair unresponsive. His eyes were open and rolled back into his head. The patient's felt for a pulse. She did not feel any. She pull ed him to the ground and began CPR. She noted that the patient was having what she describes as gasp ing irregular breaths. She did mostly chest compressions and tried to give breath but states that e does not believe she was successful in giving the breath. She called 911 reporting for cardiac arr est. Upon EMS arrival to the house, the patient was found to be in v-fib. The patient was shocked once. He was given 1 dose of epinephrine and started on an amiodarone drip. The patient had return of spon taneous circulation. The patient has not woken up. He is, however, on a tiny bit of propofol. The patient is being admitted to intensive care unit. PAST MEDICAL HISTORY: 1. Prostate cancer metastatic to the bone. 2. Atrial fibrillation. 3. Hypertension. 4. Hyperlipidemia. 5. Severe systolic dysfunction. PAST SURGICAL HISTORY: 1. Sinus surgery. 2. Hernia repair. 3. TURP. 4. Appendectomy. MEDICATIONS: 1. Metoprolol XL 25 mg p.o. b.i.d. 2. Lasix 20 mg p.o. daily. 3. Xtandi 160 mg p.o. daily. 4. [place] 7.5/325 one tab p.o. q.6 hours p.r.n. pain. 5. Digoxin 0.125 mg p.o. daily. 6. Guaifenesin 1200 mg p.o. b.i.d. p.r.n. congestion. 7. Gaviscon 1 chew p.o. q.6 hours p.r.n. indigestion. 8. Vitamin B12 1000 mcg p.o. daily. 9. Candesartan 32 mg p.o. q.h.s. 10. Protonix 40 mg p.o. daily. ALLERGIES: No known drug allergies. FAMILY HISTORY: Brother had prostate cancer. SOCIAL HISTORY: The patient is a former smoker, quitting 45 years ago. He had one pack per day smok ing history for 4 years. He reportedly drinks 1 alcoholic beverage per day. He is . His wif e is his healthcare proxy. REVIEW OF SYSTEMS: Unobtainable from the patient. PHYSICAL EXAMINATION GENERAL: The patient is a well-developed elderly male, lying in the bed, on the vent, unresponsive. VITAL SIGNS: Blood pressure 112/91, pulse 137, respiratory rate 28, temp 98.8, O2 sat 100% on the ve ntilator. HEENT: Pupils are equal. They react to light. Oropharynx is intubated. There is no submandibular, cervical, or supraclavicular adenopathy. PULMONARY: Lungs are clear anteriorly and at the lateral bases. CARDIAC: Normal S1, S2. Heart rate is tachycardic, sounds regular though it is quite fast. There i s no lower extremity edema. ABDOMEN: Bowel sounds present. Abdomen is soft, nontender, nondistended. MUSCULOSKELETAL: There is no cyanosis or clubbing of the digits. SKIN: There are no rashes. NEURO: The patient appears to have spontaneous decerebrate posturing, most notably in the right uppe r extremity. The patient's GCS is 6T. He receives 1 for eye opening, 1 T for best verbal response, and 4 for best motor response. He appears to have decerebrate posturing with painful stimulation to the upper extremities and withdrawal to pain to the lower extremities. PSYCH: Unable to be evaluated. DIAGNOSTIC STUDIES/LAB DATA: WBC 5.6, hemoglobin 9.0, hematocrit 27, platelets 180. INR 1.24. Sod ium 139, potassium 3.2, chloride 105, CO2 of 18, BUN 9, creatinine 0.91, glucose 262, lactic acid 7.1 , calcium 8.0. Magnesium 1.4. Bilirubin 0.6. AST 102, this is up from 10/31/19 where it was 14. AL T 42, up from 4 on 10/31/19. Alk phos 704, down slightly from 754 on 10/31/19. Troponin 0.06. BNP 4 05. Albumin 3.5. TSH 7.42, free T4 of 0.93. Urinalysis revealed clear urine with specific gravity of 1.016, 1+ blood, 2+ wbc's, 1+ rbc, absent bacteria. Digoxin 0.6. ABG; 7.32/39/348. ASSESSMENT AND PLAN: Mr. Pan is a 69-year-old male with a history of metastatic prostate cancer, atrial fibrillation with severe systolic dysfunction, hypertension, and questionable hyperlipidemia per his , who presents to the emergency room after cardiac arrest at home. 1. Cardiac arrest. Etiology behind this is unclear. His most recent echocardiogram from 11/02/19 r eveals persistent severely reduced systolic function of 20% to 25%. The patient previously had a str ess test during his last hospitalization which revealed no definite fixed or reversible perfusion def ect. On the initial echocardiogram from 10/30/19, the patient did have diffuse hypokinesis with regio nal variations. An ischemic event is a possibility. Pulmonary embolism is on the differential, howev er, seems less likely as his O2 saturations are quite good and I would expect pulmonary embolism lead ing to cardiac arrest to be substantial and resulting in hypoxia. The patient does have low potassiu m and magnesium. Perhaps this was arrhythmia induced. The patient at this time as he is not awoken up should be cooled. I have talked to Dr. John. The goal will be a targeted temperature of 36 degrees celsius. We will utilize the external cooling blankets. As his chest x-ray shows possible p ulmonary edema and his BNP is elevated, I will hold off on administering IV fluids. He has a decent blood pressure at this point. His lactic acid is markedly elevated, however, this is almost certainl y related to his arrest. The patient's AST and ALT are up from his previous baseline. This too could be secondary to his arrest. These will need to be followed intermittently. We will continue the pa tient on propofol at 10 mcg per kg per minute. He will have Protonix for stress ulcer prophylaxis. NG tube is already inserted. 2. Atrial fibrillation with rapid ventricular response. The patient was shocked from ventricular fi brillation to atrial fibrillation. He will remain on amiodarone drip 1 mg per minute for a total of 6 hours ending at 0025, followed subsequently by amiodarone at 0.5 mg per minute for another 18 hours . Repeat echocardiogram has been ordered for the morning of 12/06/19. It will be interesting to see if the patient's echocardiogram from earlier today revealed improvement in his EF from November or if his EF remains poor. For rate control, the patient will additionally be continued on beta hung. I will administer metoprolol tartrate 5 mg IV q. 6 hours holding for systolic blood pressure less th an 100 or heart rate less than 60. He is not being anticoagulated at this time given he presented wit h a hemoglobin of 6.2 on 10/30/19. The patient reportedly has been worked up for possible bleeding l eading this. There is also report of the patient having hematuria and perhaps this contributed at th at time. His hemoglobin now, however, is 9. We will monitor his CBC. 3. Metastatic prostate cancer. The patient's Xtandi has been held. This is a medication that can l ead to ischemic heart disease. Question of this should be held indefinitely. 4. Hypertension. As above, the patient's blood pressure at this point is holding steady. He will b e having IV metoprolol for hopeful rate control of his atrial fibrillation and this will hopefully al so work to control his blood pressure if he becomes hypertensive. 5. DVT prophylaxis: According to the Adult Thrombosis Prophylaxis Risk Factor Assessment Guide, the patient has a total risk factor score of 4, making him high risk. He will be placed on heparin 5000 units subcutaneous q.8 hours. 5. Code status: Full. TIME SPENT: Seventy minutes of critical care time was spent admitting this patient. [id number]/[facility] #: [id number]
--- NOTE | 2019-12-05 22:54 | ED ---
HPI Cardiac - HPI Summary HPI Summary: Patient is a 69 y/o M presenting to [facility] via EMS for cardiac arrest. The patient was found slumped over on the couch by the patient's . Estimated down time is a few minutes, started CPR. EMS was called. EMS report that the patient was in v-fib, patient was shocked x1 which resulted in patient converting to a-fib. EMS administered epi x1 and started amiodarone drip. The patient was intubated with 7.5 tube, 23 at the lips. ROSC prior to arrival. ABC alert called by EMS from field at 1812. Provider at bedside immediately upon EMS arrival to ED. Home medications and allergies are reviewed. Patient is a level 5 caveat secondary to extremis. - History of Current Complaint Chief Complaint: EDCardiacArrest Stated Complaint: ABC ALERT PER EMS Time Seen by Provider: 12/05/19 18:25 Hx Obtained From: EMS Hx From Patient Unobtainable Due To: Extremis Timing: Constant Pain Intensity: 0 Pain Scale Used: PAINAD Associated Signs and Symptoms: Positive: Other: - cardiac arrest - Additional Pertinent History Primary Care Physician: [id number] - Allergy/Home Medications Allergies/Adverse Reactions: Allergies Allergy/AdvReac Type Severity Reaction Status Date / Time No Known Allergies Allergy Verified 01/25/19 07:31 Home Medications: Home Medications Candesartan Cilexetil [Atacand] 32 mg PO BEDTIME 12/05/19 [History Confirmed 02/18] PMH/Surg Hx/FS Hx/Imm Hx Endocrine/Hematology History: Denies: Hx Diabetes Cardiovascular History: Reports: Hx Hypercholesterolemia, Hx Hypertension - WELL CONTROLLED, Other Cardiovascular Problems/Disorders - HIGH CHOLESTEROL Denies: Hx Pacemaker/ICD, Hx Peripheral Vascular Disease GI History: Reports: Hx Gastroesophageal Reflux Disease History: Denies: Hx Renal Disease Musculoskeletal History: Reports: Hx Arthritis - MILD Sensory History: Reports: Hx Cataracts - BOTH EYES, Hx Contacts or Glasses, Hx Hearing Aid Opthamlomology History: Reports: Hx Cataracts - BOTH EYES, Hx Contacts or Glasses Neurological History: Denies: Hx Seizures, Hx Transient Ischemic Attacks (TIA) Psychiatric History: Denies: Hx Panic Disorder - Cancer History Cancer Type, Location and Year: PROSTATE 10/2017 Hx Chemotherapy: No - RADIATION 9 WEEKS - Surgical History Surgery Procedure, Year, and Place: 1965 APPY [facility] [place]. VASECTOMY 1995 [facility] [place]. HERNIA 1995 [facility] [place]. SINUS SURGERY 2007 [place] [place] 3YRS AGO Hx Anesthesia Reactions: No Infectious Disease History: No Infectious Disease History: Denies: Traveled Outside the [place] in Last 30 Days - Family History Known Family History: Positive: Hypertension Negative: Diabetes - Social History Alcohol Use: Rare Alcohol Amount: 4-5/WEEK Substance Use Type: Reports: None Smoking Status (MU): Former Smoker Type: Cigarettes Length of Time of Smoking/Using Tobacco: ON AND OFF APPROX 10 YRS Have You Smoked in the Last Year: No Review of Systems - ROS Summary Review of Systems Summary: Patient is a level 5 caveat secondary to extremis. Positive: Other - cardiac arrest All Other Systems Reviewed And Are Negative: No - Comments Additional Review of Systems Comments: Patient is a level 5 caveat secondary to extremis. Physical Exam - Summary Physical Exam Summary: Constitutional: Well-developed, Well-nourished, Unresponsive. Skin: Warm, Dry, small abrasion to right forehead HENT: Normocephalic; Atraumatic Eyes: Pupils are 3 mm and reactive to light. Neck: (-) JVD, (-) Tracheal deviation Cardio: Afib on the monitor Pulmonary/Chest wall: Intubated with 7.5 ET tube, 23 at the lips, bilateral breath sounds present Abd: Soft, (-) tenderness, (-) Distension, (-) Guarding, (-) Rebound Musculoskeletal: (-) Edema Lymph: (-) Cervical adenopathy Neuro: Not responsive to verbal or painful stimuli Triage Information Reviewed: Yes Vital Signs On Initial Exam: Initial Vitals Pulse BP Pulse Ox 105 97/73 100 12/05/19 18:23 12/05/19 18:23 12/05/19 18:23 Vital Signs Reviewed: Yes Completion Of Physical Exam Limited Due To: Extremis, Level 5 Procedures - Sedation Patient Received Moderate/Deep Sedation with Procedure: No Diagnostics - Vital Signs Vital Signs Temp Pulse Resp BP Pulse Ox 12/05/19 19:56 99.0 F 137 121/76 100 12/05/19 19:52 99.0 F 138 128/76 99 12/05/19 19:47 98.8 F 140 129/90 100 12/05/19 19:41 98.8 F 136 112/91 100 12/05/19 19:37 97.6 F 112 26 119/71 100 12/05/19 19:36 98.8 F 124 119/71 100 12/05/19 19:08 98.2 F 124 115/70 100 12/05/19 19:03 98.1 F 138 106/72 100 12/05/19 19:00 97.9 F 128 100 12/05/19 18:58 97.9 F 117 116/61 100 12/05/19 18:53 97.3 F 134 122/62 100 12/05/19 18:48 96.6 F 135 105/85 100 12/05/19 18:46 96.6 F 136 20 105/85 100 12/05/19 18:43 112 125/68 100 12/05/19 18:38 116 113/74 100 12/05/19 18:33 111 118/75 100 12/05/19 18:28 100 172/142 100 12/05/19 18:23 105 97/73 100 - Laboratory Lab Results: Lab Results 12/05/19 12/05/19 12/05/19 Range/Units 18:20 18:20 18:20 WBC 5.6 (3.5-10.8) 10^3/uL RBC 2.82 L (4.18-5.48) 10^6 /uL Hgb 9.0 L (14.0-18.0) g/dL Hct 27 L (42-52) % MCV 97 H (80-94) fL MCH 32 H (27-31) pg MCHC 33 (31-36) g/dL RDW 22 H (10-15) % Plt Count 180 (150-450) 10^3/uL MPV 7.9 (7.4-10.4) fL Neut % (Auto) 60.5 % Lymph % (Auto) 31.7 % [place] % (Auto) 6.3 % Eos % (Auto) 0.8 % Baso % (Auto) 0.7 % Absolute Neuts (auto) 3.4 (1.5-7.7) 10^3/ul Absolute Lymphs (auto) 1.8 (1.0-4.8) 10^3/ul Absolute Monos (auto) 0.4 (0-0.8) 10^3/ul Absolute Eos (auto) 0.0 (0-0.6) 10^3/ul Absolute Basos (auto) 0.0 (0-0.2) 10^3/ul Absolute Nucleated RBC 0.0 10^3/ul Nucleated RBC % 0.1 Polychromasia 1+ Anisocytosis 2+ INR (Anticoag Therapy) (0.82-1.09) Patient Temperature ABG pH (7.35-7.45) ABG pH (Temp Correct) ABG pCO2 (35-45) mmHg ABG pCO2 (Temp Corrct ABG pO2 (80-100) mmHg ABG pO2 (Temp Correct ABG HCO3 (19-31) mmol/L ABG O2 Saturation (94.0-98.0) % ABG Base Excess (-2.0-2.0) mmol/L Respiration Rate O2 Delivery Device Ventilator Type Vent Mode FiO2 Inspiratory Time PEEP Pressure Support Pressure Control EPAP IPAP BiPAP Sodium 139 (135-145) mmol/L Potassium 3.2 L (3.5-5.0) mmol/L Chloride 105 (101-111) mmol/L Carbon Dioxide 18 L (22-32) mmol/L Anion Gap 16 H (2-11) mmol/L BUN 9 (6-24) mg/dL Creatinine 0.91 (0.67-1.17) mg/dL Est GFR ( Amer) 99.4 (>60) Est GFR (Non-Af Amer) 82.1 (>60) BUN/Creatinine Ratio 9.9 (8-20) Glucose 262 H (70-100) mg/dL Lactic Acid 7.1 H* (0.5-2.0) mmol/L Calcium 8.0 L (8.6-10.3) mg/dL Magnesium 1.4 L (1.9-2.7) mg/dL Total Bilirubin 0.60 (0.2-1.0) mg/dL AST 102 H (13-39) U/L ALT 42 (7-52) U/L Alkaline Phosphatase 704 H (34-104) U/L Troponin I 0.06 H* (<0.03) ng/mL B-Natriuretic Peptide (<=100) pg/mL Total Protein 5.7 L (6.4-8.9) g/dL Albumin 3.5 (3.2-5.2) g/dL Globulin 2.2 (2-4) g/dL Albumin/Globulin Ratio 1.6 (1-3) TSH 7.42 H (0.34-5.60) mcIU/mL Free T4 0.93 (0.61-1.12) ng/dL Urine Color Urine Appearance Urine pH (5-9) Ur Specific [place] (1.010-1.030) Urine Protein (Negative) Urine Ketones (Negative) Urine Blood (Negative) Urine Nitrate (Negative) Urine Bilirubin (Negative) Urine Urobilinogen (Negative) Ur Leukocyte Esterase (Negative) Urine WBC (Auto) (Absent) Urine RBC (Auto) (Absent) Urine Bacteria (Absent) Urine Glucose (Negative) Urine Ascorbic Acid Digoxin 0.6 L (0.8-2.0) ng/ml 12/05/19 12/05/19 12/05/19 Range/Units 18:20 19:12 19:30 WBC (3.5-10.8) 10^3/uL RBC (4.18-5.48) 10^6 /uL Hgb (14.0-18.0) g/dL Hct (42-52) % MCV (80-94) fL MCH (27-31) pg MCHC (31-36) g/dL RDW (10-15) % Plt Count (150-450) 10^3/uL MPV (7.4-10.4) fL Neut % (Auto) % Lymph % (Auto) % [place] % (Auto) % Eos % (Auto) % Baso % (Auto) % Absolute Neuts (auto) (1.5-7.7) 10^3/ul Absolute Lymphs (auto) (1.0-4.8) 10^3/ul Absolute Monos (auto) (0-0.8) 10^3/ul Absolute Eos (auto) (0-0.6) 10^3/ul Absolute Basos (auto) (0-0.2) 10^3/ul Absolute Nucleated RBC 10^3/ul Nucleated RBC % Polychromasia Anisocytosis INR (Anticoag Therapy) (0.82-1.09) Patient Temperature Not Reportable ABG pH 7.32 L (7.35-7.45) ABG pH (Temp Correct) Not Reportable ABG pCO2 39 (35-45) mmHg ABG pCO2 (Temp Corrct Not Reportable ABG pO2 348 H (80-100) mmHg ABG pO2 (Temp Correct Not Reportable ABG HCO3 20.6 (19-31) mmol/L ABG O2 Saturation 100.0 H (94.0-98.0) % ABG Base Excess -5.6 L (-2.0-2.0) mmol/L Respiration Rate 16 O2 Delivery Device Vent Ventilator Type 500 Vent Mode Cmv FiO2 100 Inspiratory Time Not Reportable PEEP 5 Pressure Support Not Reportable Pressure Control Not Reportable EPAP Not Reportable IPAP Not Reportable BiPAP Not Reportable Sodium (135-145) mmol/L Potassium (3.5-5.0) mmol/L Chloride (101-111) mmol/L Carbon Dioxide (22-32) mmol/L Anion Gap (2-11) mmol/L BUN (6-24) mg/dL Creatinine (0.67-1.17) mg/dL Est GFR ( Amer) (>60) Est GFR (Non-Af Amer) (>60) BUN/Creatinine Ratio (8-20) Glucose (70-100) mg/dL Lactic Acid (0.5-2.0) mmol/L Calcium (8.6-10.3) mg/dL Magnesium (1.9-2.7) mg/dL Total Bilirubin (0.2-1.0) mg/dL AST (13-39) U/L ALT (7-52) U/L Alkaline Phosphatase (34-104) U/L Troponin I (<0.03) ng/mL B-Natriuretic Peptide 405 H (<=100) pg/mL Total Protein (6.4-8.9) g/dL Albumin (3.2-5.2) g/dL Globulin (2-4) g/dL Albumin/Globulin Ratio (1-3) TSH (0.34-5.60) mcIU/mL Free T4 (0.61-1.12) ng/dL Urine Color Yellow Urine Appearance Clear Urine pH 6.0 (5-9) Ur Specific [place] 1.016 (1.010-1.030) Urine Protein 3+(>=500 mg/dl) A (Negative) Urine Ketones Negative (Negative) Urine Blood 1+ A (Negative) Urine Nitrate Negative (Negative) Urine Bilirubin Negative (Negative) Urine Urobilinogen Negative (Negative) Ur Leukocyte Esterase Negative (Negative) Urine WBC (Auto) 2+(11-20/hpf) A (Absent) Urine RBC (Auto) 1+(3-5/hpf) A (Absent) Urine Bacteria Absent (Absent) Urine Glucose 1+(50 mg/dl) A (Negative) Urine Ascorbic Acid Not Reportable Digoxin (0.8-2.0) ng/ml 12/05/19 Range/Units 19:54 WBC (3.5-10.8) 10^3/uL RBC (4.18-5.48) 10^6 /uL Hgb (14.0-18.0) g/dL Hct (42-52) % MCV (80-94) fL MCH (27-31) pg MCHC (31-36) g/dL RDW (10-15) % Plt Count (150-450) 10^3/uL MPV (7.4-10.4) fL Neut % (Auto) % Lymph % (Auto) % [place] % (Auto) % Eos % (Auto) % Baso % (Auto) % Absolute Neuts (auto) (1.5-7.7) 10^3/ul Absolute Lymphs (auto) (1.0-4.8) 10^3/ul Absolute Monos (auto) (0-0.8) 10^3/ul Absolute Eos (auto) (0-0.6) 10^3/ul Absolute Basos (auto) (0-0.2) 10^3/ul Absolute Nucleated RBC 10^3/ul Nucleated RBC % Polychromasia Anisocytosis INR (Anticoag Therapy) 1.24 H (0.82-1.09) Patient Temperature ABG pH (7.35-7.45) ABG pH (Temp Correct) ABG pCO2 (35-45) mmHg ABG pCO2 (Temp Corrct ABG pO2 (80-100) mmHg ABG pO2 (Temp Correct ABG HCO3 (19-31) mmol/L ABG O2 Saturation (94.0-98.0) % ABG Base Excess (-2.0-2.0) mmol/L Respiration Rate O2 Delivery Device Ventilator Type Vent Mode FiO2 Inspiratory Time PEEP Pressure Support Pressure Control EPAP IPAP BiPAP Sodium (135-145) mmol/L Potassium (3.5-5.0) mmol/L Chloride (101-111) mmol/L Carbon Dioxide (22-32) mmol/L Anion Gap (2-11) mmol/L BUN (6-24) mg/dL Creatinine (0.67-1.17) mg/dL Est GFR ( Amer) (>60) Est GFR (Non-Af Amer) (>60) BUN/Creatinine Ratio (8-20) Glucose (70-100) mg/dL Lactic Acid (0.5-2.0) mmol/L Calcium (8.6-10.3) mg/dL Magnesium (1.9-2.7) mg/dL Total Bilirubin (0.2-1.0) mg/dL AST (13-39) U/L ALT (7-52) U/L Alkaline Phosphatase (34-104) U/L Troponin I (<0.03) ng/mL B-Natriuretic Peptide (<=100) pg/mL Total Protein (6.4-8.9) g/dL Albumin (3.2-5.2) g/dL Globulin (2-4) g/dL Albumin/Globulin Ratio (1-3) TSH (0.34-5.60) mcIU/mL Free T4 (0.61-1.12) ng/dL Urine Color Urine Appearance Urine pH (5-9) Ur Specific [place] (1.010-1.030) Urine Protein (Negative) Urine Ketones (Negative) Urine Blood (Negative) Urine Nitrate (Negative) Urine Bilirubin (Negative) Urine Urobilinogen (Negative) Ur Leukocyte Esterase (Negative) Urine WBC (Auto) (Absent) Urine RBC (Auto) (Absent) Urine Bacteria (Absent) Urine Glucose (Negative) Urine Ascorbic Acid Digoxin (0.8-2.0) ng/ml Result Diagrams: 12/06/19 05:00 12/06/19 03:00 Lab Statement: Any lab studies that have been ordered have been reviewed, and results considered in the medical decision making process. - Radiology CXR Radiology Interpretation Completed By: ED Physician Summary of Radiographic Findings: Bilateral pulmonary edema, ET tube at the level of the patient's clavicle, pending official report. - CT BRAIN CT CT Interpretation Completed By: Radiologist Summary of CT Findings: IMPRESSION: No acute intracranial pathology demonstrated by CT. THIS REPORT WAS REVIEWED BY ED PHYSICIAN. - EKG 1825 Cardiac Rate: Other Rate - afib with RVR EKG Rhythm: Atrial Fibrillation Summary of EKG Findings: EKG showed afib with RVR, 132 BPM, some ST depression in V3, V4, V5. No STEMI. ED physician has reviewed and interpreted this EKG. Disposition - Course Course Of Treatment: Patient is here with a witnessed arrest. Patient had bystander CPR by his . Patient is found to be in V. tach by EMS who defibrillated patient once. Patient went into atrial fibrillation and was started on an amiodarone drip. Upon arrival here, patient was intubated with bilateral breath sounds. Patient was satting well. Patient had reactive pupils but no response to painful stimuli. Patient was not under any sedation or paralytics at that time. Patient was found to be hypokalemic and hypomagnesemic and started on drops for that. Patient started on a propofol drip and continue the amiodarone drip here. Patient a CT scan of his brain which was negative. Patient had no evidence of ischemia on his EKG. Patient was admitted to the ICU - Diagnoses Provider Diagnoses: Cardiac arrest, Respiratory failure, V-tach, A-fib, Hypomagnesemia, Hypokalemia , Pulmonary edema, Prostate cancer - Physician Notifications Discussed Care Of Patient With: Radha Dyer Time Discussed With Above Provider: 19:35 Instructed by Provider To: Other - Patient's case was discussed with Dr. Dyer , Dr. Dyer accepts patient to ICU. - Critical Care Time Critical Care Time: 30-74 min - 60 minutes CCT Discharge ED - Sign-Out/Discharge Documenting (check all that apply): Patient Departure - admit All imaging exams completed and their final reports reviewed: Yes - Discharge Plan Condition: Critical Disposition: ADMITTED TO [facility] - Billing Disposition and Condition Condition: CRITICAL Disposition: Admitted to [facility] - Attestation Statements Document Initiated by Scribe: Yes Documenting Scribe: OMEGA SMITH Provider For Whom Clemencia is Documenting (Include Credential): DAMARI MOFFETT MD Scribe Attestation: OMEGA Riddle, scribed for DAMARI MOFFETT MD on 12/06/19 at 1025. Scribe Documentation Reviewed: Yes Provider Attestation: The documentation as recorded by the OMEGA mclean accurately reflects the service I personally performed and the decisions made by me, DAMARI MOFFETT MD Status of Scribe Document: Viewed
[2019-12-05] MEDS ORDERED: fentaNYL* 50 MCG/ML 2 ML VIAL (100 MCG VIAL) IV SLOW PU PRN (23:20)
[2019-12-06] MEDS: Propofol* 100 ML IV SCH ×6 (00:04→21:50)
[2019-12-06] MEDS: Amiodarone 360 MG IVPREMIX* 360 MG/200 ML BAG IV SCH ×2 (00:21→10:13)
[2019-12-06] MEDS ORDERED: NS 0.9% 1000 ML** 1,000 ML IV ONE (01:09)
[2019-12-06 03:23] LABS: Potassium 3.7 mmol/L (3.5-5.0)
[2019-12-06 03:27] LABS: Blood Urea Nitrogen 10 mg/dL (6-24); CO2 Carbon Dioxide 20 mmol/L (22-32); Calcium 7.5 mg/dL (8.6-10.3); EGFR African American 120.5 (>60); EGFR Non-African American 99.6 (>60); Glucose 131 mg/dL (70-100); Magnesium 1.4 mg/dL (1.9-2.7); Potassium 3.3 mmol/L (3.5-5.0); Sodium 142 mmol/L (135-145)
[2019-12-06 03:28] LABS: Anion Gap 10 mmol/L (2-11); Chloride 112 mmol/L (101-111)
[2019-12-06 03:31] LABS: Troponin I 0.27 ng/mL (<0.03)
[2019-12-06] MEDS ORDERED: Magnesium Sulfate IV* 3 GM in NS 0.9% 100 ML* 100 ML IVPB ONE (04:00)
[2019-12-06] MEDS: Metoprolol Tartrate IV* 1 MG/ML 5 ML VIAL IV SCH ×5 (04:05→21:47)
[2019-12-06] MEDS: KCL 20 MEQ/100 ML IVPREMIX* 20 MEQ/100 ML BAG IV SCH ×2 (04:06→06:26)
[2019-12-06] MEDS: Heparin VIAL(*) 5000 UNITS/ML VIAL (FIVE THOUSAND) SUBCUT SCH ×3 (05:39→22:51)
[2019-12-06 05:40] LABS: ABS Lymphocytes 0.3 10^3/ul (1.0-4.8); ABS Monocytes 0.6 10^3/ul (0-0.8); ABS Neutrophils 5.3 10^3/ul (1.5-7.7); Eosinophil % 0.3 %; Hematocrit 28 % (42-52); Hemoglobin 8.8 g/dL (14.0-18.0); Lymphocyte % 4.6 %; Mean Corpuscular HGB Conc 32 g/dL (31-36); Mean Corpuscular Hemoglobin 34 pg (27-31); Mean Corpuscular Volume 106 fL (80-94); Mean Platelet Volume 8.4 fL (7.4-10.4); Nucleated Red Blood Cells % 0.2; Platelet Count 127 10^3/uL (150-450); Red Cell Distribution Width 23 % (10-15); White Blood Count 6.3 10^3/uL (3.5-10.8)
[2019-12-06] MEDS: CHLORHEXADINE (PERIDEX) VENT ORAL CARE TOPICAL SCH ×4 (08:48→19:57)
[2019-12-06] MEDS ORDERED: Magnesium Sulfate 2 GM IV* 2 GM/50 ML BAG IVPB ONE (09:30)
[2019-12-06] MEDS ORDERED: Magnesium Sulfate 2 GM IV* 2 GM/50 ML BAG ONE (09:30)
--- NOTE | 2019-12-06 09:33 | CONSULT ---
Consultation - Reason for Consultation Reason for Consultation: Metastatic Prostate Cancer, Hormone refractory, post Cardiac Arrest Allergies/Medications Allergies/Adverse Reactions: Allergies Allergy/AdvReac Type Severity Reaction Status Date / Time No Known Allergies Allergy Verified 01/25/19 07:31 Results - Lab Results Lab Results: 12/05/19 12/05/19 12/05/19 00:14 18:20 18:20 WBC 5.6 RBC 2.82 L Hgb 9.0 L Hct 27 L MCV 97 H MCH 32 H MCHC 33 RDW 22 H Plt Count 180 MPV 7.9 Neut % (Auto) 60.5 Lymph % (Auto) 31.7 [place] % (Auto) 6.3 Eos % (Auto) 0.8 Baso % (Auto) 0.7 Absolute Neuts (auto) 3.4 Absolute Lymphs (auto) 1.8 Absolute Monos (auto) 0.4 Absolute Eos (auto) 0.0 Absolute Basos (auto) 0.0 Absolute Nucleated RBC 0.0 Nucleated RBC % 0.1 Polychromasia 1+ Anisocytosis 2+ INR (Anticoag Therapy) Patient Temperature ABG pH ABG pH (Temp Correct) ABG pCO2 ABG pCO2 (Temp Corrct ABG pO2 ABG pO2 (Temp Correct ABG HCO3 ABG O2 Saturation ABG Base Excess Respiration Rate O2 Delivery Device Ventilator Type Vent Mode FiO2 Inspiratory Time PEEP Pressure Support Pressure Control EPAP IPAP BiPAP Sodium Cancelled 139 Potassium Cancelled 3.2 L Chloride Cancelled 105 Carbon Dioxide Cancelled 18 L Anion Gap Cancelled 16 H BUN 9 Creatinine 0.91 Est GFR ( Amer) 99.4 Est GFR (Non-Af Amer) 82.1 BUN/Creatinine Ratio 9.9 Glucose 262 H POC Glucose (mg/dL) Lactic Acid Calcium 8.0 L Magnesium 1.4 L Total Bilirubin 0.60 AST 102 H ALT 42 Alkaline Phosphatase 704 H Troponin I 0.06 H* B-Natriuretic Peptide Total Protein 5.7 L Albumin 3.5 Globulin 2.2 Albumin/Globulin Ratio 1.6 TSH 7.42 H Free T4 0.93 Urine Color Urine Appearance Urine pH Ur Specific [place] Urine Protein Urine Ketones Urine Blood Urine Nitrate Urine Bilirubin Urine Urobilinogen Ur Leukocyte Esterase Urine WBC (Auto) Urine RBC (Auto) Urine Bacteria Urine Glucose Urine Ascorbic Acid Digoxin 0.6 L 12/05/19 12/05/19 12/05/19 18:20 18:20 19:12 WBC RBC Hgb Hct MCV MCH MCHC RDW Plt Count MPV Neut % (Auto) Lymph % (Auto) [place] % (Auto) Eos % (Auto) Baso % (Auto) Absolute Neuts (auto) Absolute Lymphs (auto) Absolute Monos (auto) Absolute Eos (auto) Absolute Basos (auto) Absolute Nucleated RBC Nucleated RBC % Polychromasia Anisocytosis INR (Anticoag Therapy) Patient Temperature Not Reportable ABG pH 7.32 L ABG pH (Temp Correct) Not Reportable ABG pCO2 39 ABG pCO2 (Temp Corrct Not Reportable ABG pO2 348 H ABG pO2 (Temp Correct Not Reportable ABG HCO3 20.6 ABG O2 Saturation 100.0 H ABG Base Excess -5.6 L Respiration Rate 16 O2 Delivery Device Vent Ventilator Type 500 Vent Mode Cmv FiO2 100 Inspiratory Time Not Reportable PEEP 5 Pressure Support Not Reportable Pressure Control Not Reportable EPAP Not Reportable IPAP Not Reportable BiPAP Not Reportable Sodium Potassium Chloride Carbon Dioxide Anion Gap BUN Creatinine Est GFR ( Amer) Est GFR (Non-Af Amer) BUN/Creatinine Ratio Glucose POC Glucose (mg/dL) Lactic Acid 7.1 H* Calcium Magnesium Total Bilirubin AST ALT Alkaline Phosphatase Troponin I B-Natriuretic Peptide 405 H Total Protein Albumin Globulin Albumin/Globulin Ratio TSH Free T4 Urine Color Urine Appearance Urine pH Ur Specific [place] Urine Protein Urine Ketones Urine Blood Urine Nitrate Urine Bilirubin Urine Urobilinogen Ur Leukocyte Esterase Urine WBC (Auto) Urine RBC (Auto) Urine Bacteria Urine Glucose Urine Ascorbic Acid Digoxin 12/05/19 12/05/19 12/05/19 19:30 19:54 22:13 WBC RBC Hgb Hct MCV MCH MCHC RDW Plt Count MPV Neut % (Auto) Lymph % (Auto) [place] % (Auto) Eos % (Auto) Baso % (Auto) Absolute Neuts (auto) Absolute Lymphs (auto) Absolute Monos (auto) Absolute Eos (auto) Absolute Basos (auto) Absolute Nucleated RBC Nucleated RBC % Polychromasia Anisocytosis INR (Anticoag Therapy) 1.24 H Patient Temperature ABG pH ABG pH (Temp Correct) ABG pCO2 ABG pCO2 (Temp Corrct ABG pO2 ABG pO2 (Temp Correct ABG HCO3 ABG O2 Saturation ABG Base Excess Respiration Rate O2 Delivery Device Ventilator Type Vent Mode FiO2 Inspiratory Time PEEP Pressure Support Pressure Control EPAP IPAP BiPAP Sodium Potassium Chloride Carbon Dioxide Anion Gap BUN Creatinine Est GFR ( Amer) Est GFR (Non-Af Amer) BUN/Creatinine Ratio Glucose POC Glucose (mg/dL) Lactic Acid 3.1 H* Calcium Magnesium Total Bilirubin AST ALT Alkaline Phosphatase Troponin I B-Natriuretic Peptide Total Protein Albumin Globulin Albumin/Globulin Ratio TSH Free T4 Urine Color Yellow Urine Appearance Clear Urine pH 6.0 Ur Specific [place] 1.016 Urine Protein 3+(>=500 mg/dl) A Urine Ketones Negative Urine Blood 1+ A Urine Nitrate Negative Urine Bilirubin Negative Urine Urobilinogen Negative Ur Leukocyte Esterase Negative Urine WBC (Auto) 2+(11-20/hpf) A Urine RBC (Auto) 1+(3-5/hpf) A Urine Bacteria Absent Urine Glucose 1+(50 mg/dl) A Urine Ascorbic Acid Not Reportable Digoxin 12/05/19 12/06/19 12/06/19 22:13 00:14 03:00 WBC RBC Hgb Hct MCV MCH MCHC RDW Plt Count MPV Neut % (Auto) Lymph % (Auto) [place] % (Auto) Eos % (Auto) Baso % (Auto) Absolute Neuts (auto) Absolute Lymphs (auto) Absolute Monos (auto) Absolute Eos (auto) Absolute Basos (auto) Absolute Nucleated RBC Nucleated RBC % Polychromasia Anisocytosis INR (Anticoag Therapy) Patient Temperature ABG pH ABG pH (Temp Correct) ABG pCO2 ABG pCO2 (Temp Corrct ABG pO2 ABG pO2 (Temp Correct ABG HCO3 ABG O2 Saturation ABG Base Excess Respiration Rate O2 Delivery Device Ventilator Type Vent Mode FiO2 Inspiratory Time PEEP Pressure Support Pressure Control EPAP IPAP BiPAP Sodium 140 142 Potassium 3.7 3.3 L Chloride 106 112 H Carbon Dioxide 24 20 L Anion Gap 10 10 BUN 10 Creatinine 0.77 Est GFR ( Amer) 120.5 Est GFR (Non-Af Amer) 99.6 BUN/Creatinine Ratio 13.0 Glucose 131 H POC Glucose (mg/dL) Lactic Acid Calcium 7.5 L Magnesium 1.4 L Total Bilirubin AST ALT Alkaline Phosphatase Troponin I 0.29 H* 0.27 H* B-Natriuretic Peptide Total Protein Albumin Globulin Albumin/Globulin Ratio TSH Free T4 Urine Color Urine Appearance Urine pH Ur Specific [place] Urine Protein Urine Ketones Urine Blood Urine Nitrate Urine Bilirubin Urine Urobilinogen Ur Leukocyte Esterase Urine WBC (Auto) Urine RBC (Auto) Urine Bacteria Urine Glucose Urine Ascorbic Acid Digoxin 12/06/19 12/06/19 12/06/19 03:00 05:00 05:07 WBC 6.3 RBC 2.60 L Hgb 8.8 L Hct 28 L MCV 106 H MCH 34 H MCHC 32 RDW 23 H Plt Count 127 L MPV 8.4 Neut % (Auto) 84.8 Lymph % (Auto) 4.6 [place] % (Auto) 10.1 Eos % (Auto) 0.3 Baso % (Auto) 0.2 Absolute Neuts (auto) 5.3 Absolute Lymphs (auto) 0.3 L Absolute Monos (auto) 0.6 Absolute Eos (auto) 0.0 Absolute Basos (auto) 0.0 Absolute Nucleated RBC 0.0 Nucleated RBC % 0.2 Polychromasia Anisocytosis INR (Anticoag Therapy) Patient Temperature ABG pH ABG pH (Temp Correct) ABG pCO2 ABG pCO2 (Temp Corrct ABG pO2 ABG pO2 (Temp Correct ABG HCO3 ABG O2 Saturation ABG Base Excess Respiration Rate O2 Delivery Device Ventilator Type Vent Mode FiO2 Inspiratory Time PEEP Pressure Support Pressure Control EPAP IPAP BiPAP Sodium Potassium Chloride Carbon Dioxide Anion Gap BUN Creatinine Est GFR ( Amer) Est GFR (Non-Af Amer) BUN/Creatinine Ratio Glucose POC Glucose (mg/dL) 134 H Lactic Acid 3.0 H* Calcium Magnesium Total Bilirubin AST ALT Alkaline Phosphatase Troponin I B-Natriuretic Peptide Total Protein Albumin Globulin Albumin/Globulin Ratio TSH Free T4 Urine Color Urine Appearance Urine pH Ur Specific [place] Urine Protein Urine Ketones Urine Blood Urine Nitrate Urine Bilirubin Urine Urobilinogen Ur Leukocyte Esterase Urine WBC (Auto) Urine RBC (Auto) Urine Bacteria Urine Glucose Urine Ascorbic Acid Digoxin
--- NOTE | 2019-12-06 10:10 | PN ---
Date of Service: 12/06/19 Critical Care Services: Overnight events notes. Per RN, patient had posturing activity which required increasing sedation. This morning, patient is having runs of self-limiting monomorphic VT, with the longest run of about 30 beats. Family at bedside updated on plan of care for today. Vital Signs: Temp Pulse Resp BP SpO2 FiO2 97.7 F 88 30 120/64 99 25 12/06/19 09:04 12/06/19 09:04 12/06/19 09:00 12/06/19 09:04 12/06/19 09:04 12/06 08:00 Physical Exam: General: Intubated and sedated, RASS -2 HEENT: Normocephalic, atraumatic, non-icteric sclera, moist oral mucosa Neck: soft, supple, no JVD CV: afib with frequent PVCs and runs of VT, no murmurs or rubs Pulm/Chest: Good bilateral air entry, no rhonchi or rales, no wheeze Abdomen/GI: soft, nontender, nondistended, +BS noted MSK/Skin: warm, dry, intact, +2 pulses+, no edema or cyanosis Neuro: Sedated on propofol no current posturing Fluid Balance (Past 24 Hours): Intake & Output 12/04/19 12/05/19 12/06/19 12/07/19 06:59 06:59 06:59 06:59 Intake Total 1745 Output Total 196 103 Balance 1549 -103 Weight 223 lb 11.8 oz Intake: IV Fluids 1148 NS (0.9%) 1018 IVPB 78 Potassium 78 Medicated IV 519 CC - Amiodarone 274 CC - Propofol/Diprivan 245 Output: Urine 0 103 Ramirez 176 Residual 20 Ramirez 16 Fr Temperature 20 Probe Other: Estimated Void Medium # Voids 1 Labs: Laboratory Results - last 24 hr 12/05/19 12/05/19 12/05/19 00:14 18:20 18:20 WBC 5.6 RBC 2.82 L Hgb 9.0 L Hct 27 L MCV 97 H MCH 32 H MCHC 33 RDW 22 H Plt Count 180 MPV 7.9 Neut % (Auto) 60.5 Lymph % (Auto) 31.7 [place] % (Auto) 6.3 Eos % (Auto) 0.8 Baso % (Auto) 0.7 Absolute Neuts (auto) 3.4 Absolute Lymphs (auto) 1.8 Absolute Monos (auto) 0.4 Absolute Eos (auto) 0.0 Absolute Basos (auto) 0.0 Absolute Nucleated RBC 0.0 Nucleated RBC % 0.1 Polychromasia 1+ Anisocytosis 2+ INR (Anticoag Therapy) Patient Temperature ABG pH ABG pH (Temp Correct) ABG pCO2 ABG pCO2 (Temp Corrct ABG pO2 ABG pO2 (Temp Correct ABG HCO3 ABG O2 Saturation ABG Base Excess Respiration Rate O2 Delivery Device Ventilator Type Vent Mode FiO2 Inspiratory Time PEEP Pressure Support Pressure Control EPAP IPAP BiPAP Sodium Cancelled 139 Potassium Cancelled 3.2 L Chloride Cancelled 105 Carbon Dioxide Cancelled 18 L Anion Gap Cancelled 16 H BUN 9 Creatinine 0.91 Est GFR ( Amer) 99.4 Est GFR (Non-Af Amer) 82.1 BUN/Creatinine Ratio 9.9 Glucose 262 H POC Glucose (mg/dL) Lactic Acid Calcium 8.0 L Magnesium 1.4 L Total Bilirubin 0.60 AST 102 H ALT 42 Alkaline Phosphatase 704 H Troponin I 0.06 H* B-Natriuretic Peptide Total Protein 5.7 L Albumin 3.5 Globulin 2.2 Albumin/Globulin Ratio 1.6 TSH 7.42 H Free T4 0.93 Urine Color Urine Appearance Urine pH Ur Specific [place] Urine Protein Urine Ketones Urine Blood Urine Nitrate Urine Bilirubin Urine Urobilinogen Ur Leukocyte Esterase Urine WBC (Auto) Urine RBC (Auto) Urine Bacteria Urine Glucose Urine Ascorbic Acid Digoxin 0.6 L 12/05/19 12/05/19 12/05/19 18:20 18:20 19:12 WBC RBC Hgb Hct MCV MCH MCHC RDW Plt Count MPV Neut % (Auto) Lymph % (Auto) [place] % (Auto) Eos % (Auto) Baso % (Auto) Absolute Neuts (auto) Absolute Lymphs (auto) Absolute Monos (auto) Absolute Eos (auto) Absolute Basos (auto) Absolute Nucleated RBC Nucleated RBC % Polychromasia Anisocytosis INR (Anticoag Therapy) Patient Temperature Not Reportable ABG pH 7.32 L ABG pH (Temp Correct) Not Reportable ABG pCO2 39 ABG pCO2 (Temp Corrct Not Reportable ABG pO2 348 H ABG pO2 (Temp Correct Not Reportable ABG HCO3 20.6 ABG O2 Saturation 100.0 H ABG Base Excess -5.6 L Respiration Rate 16 O2 Delivery Device Vent Ventilator Type 500 Vent Mode Cmv FiO2 100 Inspiratory Time Not Reportable PEEP 5 Pressure Support Not Reportable Pressure Control Not Reportable EPAP Not Reportable IPAP Not Reportable BiPAP Not Reportable Sodium Potassium Chloride Carbon Dioxide Anion Gap BUN Creatinine Est GFR ( Amer) Est GFR (Non-Af Amer) BUN/Creatinine Ratio Glucose POC Glucose (mg/dL) Lactic Acid 7.1 H* Calcium Magnesium Total Bilirubin AST ALT Alkaline Phosphatase Troponin I B-Natriuretic Peptide 405 H Total Protein Albumin Globulin Albumin/Globulin Ratio TSH Free T4 Urine Color Urine Appearance Urine pH Ur Specific [place] Urine Protein Urine Ketones Urine Blood Urine Nitrate Urine Bilirubin Urine Urobilinogen Ur Leukocyte Esterase Urine WBC (Auto) Urine RBC (Auto) Urine Bacteria Urine Glucose Urine Ascorbic Acid Digoxin 12/05/19 12/05/19 12/05/19 19:30 19:54 22:13 WBC RBC Hgb Hct MCV MCH MCHC RDW Plt Count MPV Neut % (Auto) Lymph % (Auto) [place] % (Auto) Eos % (Auto) Baso % (Auto) Absolute Neuts (auto) Absolute Lymphs (auto) Absolute Monos (auto) Absolute Eos (auto) Absolute Basos (auto) Absolute Nucleated RBC Nucleated RBC % Polychromasia Anisocytosis INR (Anticoag Therapy) 1.24 H Patient Temperature ABG pH ABG pH (Temp Correct) ABG pCO2 ABG pCO2 (Temp Corrct ABG pO2 ABG pO2 (Temp Correct ABG HCO3 ABG O2 Saturation ABG Base Excess Respiration Rate O2 Delivery Device Ventilator Type Vent Mode FiO2 Inspiratory Time PEEP Pressure Support Pressure Control EPAP IPAP BiPAP Sodium Potassium Chloride Carbon Dioxide Anion Gap BUN Creatinine Est GFR ( Amer) Est GFR (Non-Af Amer) BUN/Creatinine Ratio Glucose POC Glucose (mg/dL) Lactic Acid 3.1 H* Calcium Magnesium Total Bilirubin AST ALT Alkaline Phosphatase Troponin I B-Natriuretic Peptide Total Protein Albumin Globulin Albumin/Globulin Ratio TSH Free T4 Urine Color Yellow Urine Appearance Clear Urine pH 6.0 Ur Specific [place] 1.016 Urine Protein 3+(>=500 mg/dl) A Urine Ketones Negative Urine Blood 1+ A Urine Nitrate Negative Urine Bilirubin Negative Urine Urobilinogen Negative Ur Leukocyte Esterase Negative Urine WBC (Auto) 2+(11-20/hpf) A Urine RBC (Auto) 1+(3-5/hpf) A Urine Bacteria Absent Urine Glucose 1+(50 mg/dl) A Urine Ascorbic Acid Not Reportable Digoxin 12/05/19 12/06/19 12/06/19 22:13 00:14 03:00 WBC RBC Hgb Hct MCV MCH MCHC RDW Plt Count MPV Neut % (Auto) Lymph % (Auto) [place] % (Auto) Eos % (Auto) Baso % (Auto) Absolute Neuts (auto) Absolute Lymphs (auto) Absolute Monos (auto) Absolute Eos (auto) Absolute Basos (auto) Absolute Nucleated RBC Nucleated RBC % Polychromasia Anisocytosis INR (Anticoag Therapy) Patient Temperature ABG pH ABG pH (Temp Correct) ABG pCO2 ABG pCO2 (Temp Corrct ABG pO2 ABG pO2 (Temp Correct ABG HCO3 ABG O2 Saturation ABG Base Excess Respiration Rate O2 Delivery Device Ventilator Type Vent Mode FiO2 Inspiratory Time PEEP Pressure Support Pressure Control EPAP IPAP BiPAP Sodium 140 142 Potassium 3.7 3.3 L Chloride 106 112 H Carbon Dioxide 24 20 L Anion Gap 10 10 BUN 10 Creatinine 0.77 Est GFR ( Amer) 120.5 Est GFR (Non-Af Amer) 99.6 BUN/Creatinine Ratio 13.0 Glucose 131 H POC Glucose (mg/dL) Lactic Acid Calcium 7.5 L Magnesium 1.4 L Total Bilirubin AST ALT Alkaline Phosphatase Troponin I 0.29 H* 0.27 H* B-Natriuretic Peptide Total Protein Albumin Globulin Albumin/Globulin Ratio TSH Free T4 Urine Color Urine Appearance Urine pH Ur Specific [place] Urine Protein Urine Ketones Urine Blood Urine Nitrate Urine Bilirubin Urine Urobilinogen Ur Leukocyte Esterase Urine WBC (Auto) Urine RBC (Auto) Urine Bacteria Urine Glucose Urine Ascorbic Acid Digoxin 12/06/19 12/06/19 12/06/19 03:00 05:00 05:07 WBC 6.3 RBC 2.60 L Hgb 8.8 L Hct 28 L MCV 106 H MCH 34 H MCHC 32 RDW 23 H Plt Count 127 L MPV 8.4 Neut % (Auto) 84.8 Lymph % (Auto) 4.6 [place] % (Auto) 10.1 Eos % (Auto) 0.3 Baso % (Auto) 0.2 Absolute Neuts (auto) 5.3 Absolute Lymphs (auto) 0.3 L Absolute Monos (auto) 0.6 Absolute Eos (auto) 0.0 Absolute Basos (auto) 0.0 Absolute Nucleated RBC 0.0 Nucleated RBC % 0.2 Polychromasia Anisocytosis INR (Anticoag Therapy) Patient Temperature ABG pH ABG pH (Temp Correct) ABG pCO2 ABG pCO2 (Temp Corrct ABG pO2 ABG pO2 (Temp Correct ABG HCO3 ABG O2 Saturation ABG Base Excess Respiration Rate O2 Delivery Device Ventilator Type Vent Mode FiO2 Inspiratory Time PEEP Pressure Support Pressure Control EPAP IPAP BiPAP Sodium Potassium Chloride Carbon Dioxide Anion Gap BUN Creatinine Est GFR ( Amer) Est GFR (Non-Af Amer) BUN/Creatinine Ratio Glucose POC Glucose (mg/dL) 134 H Lactic Acid 3.0 H* Calcium Magnesium Total Bilirubin AST ALT Alkaline Phosphatase Troponin I B-Natriuretic Peptide Total Protein Albumin Globulin Albumin/Globulin Ratio TSH Free T4 Urine Color Urine Appearance Urine pH Ur Specific [place] Urine Protein Urine Ketones Urine Blood Urine Nitrate Urine Bilirubin Urine Urobilinogen Ur Leukocyte Esterase Urine WBC (Auto) Urine RBC (Auto) Urine Bacteria Urine Glucose Urine Ascorbic Acid Digoxin Studies: Patient Name: LACHO GARDUNO Medical Record#: [id number] Ordering Physician: Beka Real MD Acct.#: [id number] : 1950 Age: 69 Sex: M Location: INTENSIVE CARE UNIT Exam Date: 12/05/191824 ADM Status: ADM IN Order Information: CHEST AP/PORT Accession Number: [id number] CPT: 09248 INDICATION: Status post intubation. COMPARISON: Comparison is made with a prior chest x-ray study from October. TECHNIQUE: 2 portable films of the chest were obtained. FINDINGS: The patient is status post intubation. The endotracheal tube tip is at the level of the clavicular heads. The heart appears within normal limits in size. There is prominence of the interstitial markings and scattered alveolar infiltrates within both lungs. There is a trace left pleural effusion. The right costophrenic angle is cut off on the film. IMPRESSION: 1. STATUS POST INFORMATION. 2. BILATERAL INFILTRATES SUGGESTIVE OF PULMONARY EDEMA LESS LIKELY PNEUMONIA. Preliminary Imaging Read R0 Patient Name: LACHO GARDUNO Medical Record#: [id number] Ordering Physician: Beka Real MD Acct.#: [id number] : 1950 Age: 69 Sex: M Location: EMERGENCY DEPARTMENT Exam Date: 12/05/191824 ADM Status: REG ER Order Information: CT BRAIN WO Accession Number: [id number] CPT: 45635 PROCEDURE INFORMATION: Exam: CT Head Without Contrast Exam date and time: 12/05/2019 7:26 PM Age: 69 years old Clinical indication: Altered mental status/memory loss; Patient HX: Cardiac arrest; Additional info: AMS TECHNIQUE: Imaging protocol: Computed tomography of the head without contrast. Radiation optimization: All CT scans at this facility use at least one of these dose optimization techniques: automated exposure control; mA and/or kV adjustment per patient size (includes targeted exams where dose is matched to clinical indication); or iterative reconstruction. 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 There is no evidence of intracranial hemorrhage. No abnormal extra-axial fluid collections are identified. No mass effect or midline shift is seen. Perez-white differentiation is preserved throughout. Ventricles: Normal. No ventriculomegaly. Bones/joints: Unremarkable. No acute fracture. Sinuses: The visualized sinuses are unremarkable. Mastoid air cells: There is no mastoid effusion detected. Soft tissues: Unremarkable. IMPRESSION: No acute intracranial pathology demonstrated by CT. Dictated and Authenticated by: Leonie Duarte MD 12/05/2019 8:10 PM Eastern Time ([place] and [place]) To contact [facility] with a general question: Operations Center - [phone] For direct physician to physician contact: Physician Hotline - [phone] [facility] ([facility] ID #[id number]) Nutrition: NPO Impression: This is a 69 year old male patient that arrived in the ED with an out of hospital vfib arrest. Post one shock with conversion to afib with RVR and on amio drip. Notable for VT this morning and overnight posturing. Diagnoses: 1. Cardiac Arrest 2. Severe Cardiomyopathy with Systolic HF, etiology unclear 3. Atrial Fib with RVR 4. Prostate CA with Diffuse Bone Mets Plan: Neuro -Sedated on propofol, titrate to RASS-2, however, when prop was lightened last night, patient appeared to be posturing and could not follow commands Concerned for some other neuro involvment, as patient is in afib and not anticoagulated; embolic event? - CT head negative, will need MRI brain when cardiac status is more stable and arrhythmias are better controlled CV - Amio gtt infusing - Repleting mag and K to goals of >2 and >4 respectively - Additional bolus mag now 2 gm given non-sustained VT this morning - Lopressor IV PRN - Targeted temp management continues, goal for euthermic value of 36 degrees C - ECHO pending to eval LV fx and EF - Appreciate input from cardiology today, appears that patient was having significant amount of ectopy on his holter monitor on 11/23/2019, however rate was less than 160 Pulmonary - Wean FIO2 to keep sat>92% - Pulmonary toilet while vented - VAP bundle ID - No active issues GI - NPO - PPI for PUD prophy Renal - Strict I/O, maintain ramirez, UOP is adequate Heme/Onc - Transfuse for H&H<8/25, has required transfusions 2/2 bone marrow involvement from prostate CA - Current tx with Xtandi and Lupron as outpatient, has also been treated with radiation to thoracic spine and sacrum Endo - Maintain BG<200 MSK/SKIN - T&P q2h while on bedrest - HOB @30 degrees DVT prophylaxis - HSQ Lines: Intraosseous access right medial malleolous, will need central line Disposition: Patient requires Critical Care/ICU for continued vent management and post arrest care Patient clinical status: Critical Code Status: Full code Total Critical Care Time 50 minutes
[2019-12-06 10:55] LABS: Creatine Kinase 154 U/L (10-223)
[2019-12-06 10:57] LABS: Creatine Kinase 183 U/L (10-223)
[2019-12-06 10:57] LABS: Creatine Kinase 136 U/L (10-223)
[2019-12-06 10:58] LABS: CKMB ng/mL 6.1 ng/mL (0.6-6.3)
[2019-12-06 11:00] LABS: CKMB ng/mL 2.1 ng/mL (0.6-6.3)
[2019-12-06] MEDS ORDERED: Magnesium Sulfate 2 GM IV* 50 ML BAG ONE (11:40)
[2019-12-06] MEDS ORDERED: EPINEPHrine SYR 0.1MG/ML* SYRINGE ONE (11:40)
[2019-12-06] MEDS ORDERED: Amiodarone IV VIAL** 50 MG/ML 3 ML (150 MG) VIAL ONE (11:40)
--- NOTE | 2019-12-06 12:22 | ECHO ---
*[facility]* [place] [address] Fax #: [phone] Transthoracic Echocardiogram Patient: Kameron Pan : 1950 Study Date: 12/06/2019 Age: 69 Gender: M HR: 95 bpm Height: 71 in /180.3 cm BSA: 2.11 m^2 Weight: 199.6 lb /90.7 kg BMI: 27.9 kg/m^2 *[employer] Teacher: Divya [place] [facility] *Referring Physician: * Radha DyerReading Physician: * Juan Ramon Kapadia MD Indications: Cardiac Arrest. History: Atrial fibrillation. Congestive heart failure. PMH: Cardiomyopathy. Risk factors: Hypertension. Dyslipidemia. Conclusions Summary: - Left ventricle: Systolic function is severely reduced. The estimated ejection fraction is 10-15%. Systolic function is worse from the study of 11/02/2019. Severe diffuse hypokinesis with regional variations. - Regional wall motion abnormality: Akinesis of the basal-mid inferior myocardium. The mid lateral wall is relatively less hypokinetic. Severe hypokinesis elsewhere. - Right ventricle: Systolic function is mildly reduced. - Left atrium: The atrium is moderately dilated. - Right atrium: The atrium is mildly dilated. - Mitral valve: There is mild regurgitation. - Aortic valve: There is mild regurgitation. - Tricuspid valve: There is trace to mild regurgitation. - Pulmonary arteries: Systolic pressure can not be accurately estimated. Probably mild to moderately elevated at 48 mmhg. Study data: Transthoracic echocardiogram. Procedure: Transthoracic echocardiography was performed. Image quality was good. Complete 2D, spectral Doppler, and color flow Doppler. Location: ICU Patient status: Inpatient. Patient room number: 5. Comparison is made to the study of 11/02/2019. Rhythm: Atrial fibrillation. Findings Left ventricle: The cavity size is normal. Wall thickness is mildly increased. Systolic function is severely reduced. The estimated ejection fraction is 10-15%. Systolic function is worse from the study of 11/02/2019. Severe diffuse hypokinesis with regional variations. Regional wall motion abnormalities: Akinesis of the basal-mid inferior myocardium. The mid lateral wall is relatively less hypokinetic. Severe hypokinesis elsewhere. Left ventricular diastolic function parameters are indeterminate. Right ventricle: The cavity size is normal. Systolic function is mildly reduced. Left atrium: The atrium is moderately dilated. Right atrium: The atrium is mildly dilated. Mitral valve: The leaflets are mildly thickened. There is no evidence of stenosis. There is mild regurgitation. Aortic valve: The leaflets are normal thickness. There is no evidence of stenosis. There is mild regurgitation. Tricuspid valve: The leaflets are normal thickness. There is no evidence of stenosis. There is trace to mild regurgitation. Pulmonic valve: The leaflets are normal thickness. There is no significant regurgitation. Aorta: The aortic root appears normal. The aortic arch appears normal. Pericardium: There is no significant pericardial effusion. Pulmonary arteries: Systolic pressure can not be accurately estimated. Probably mild to moderately elevated at 48 mmhg. Systemic veins: Inferior vena cava: The vessel is dilated. Respirophasic changes in dimension are absent. Measurements Left ventricle Value Ref Aortic valve Value Ref SUMIT, LAX 4.8 cm 4.2 - 5.8 Belen diam, ED 2.4 cm ---- ESD, LAX (H) 4.4 cm 2.5 - 4.0 [place] diam/bsa, ED 1.1 cm/m^2 ---- FS, LAX (L) 8 % 25 - 43 Peak v, S 1.01 m/sec ---- PW, ED, LAX (H) 1.1 cm 0.6 - 1.0 Peak grad, S 4.0 mm Hg ---- E', lat belen, TDI (L) 6.7 cm/sec >=10.0 E/e', lat belen, 15 Mitral valve Value Re f TDI Peak E 0.99 m/sec ---- E', med belen, TDI (L) 5.8 cm/sec >=7.0 Peak A 0.03 m/sec ---- E/e', med belen, 17 Decel time 138 ms -- -- TDI Peak grad, D 3.9 mm Hg ---- E', avg, TDI 6.3 cm/sec Peak E/A ratio 35.5 -- -- E/e', avg, TDI (H) 16 <=14 Pulmonic valve Value Ref LVOT Value Ref Peak v, S 0.47 m/sec ---- Peak chato, S 0.74 m/sec Peak grad, S 1.0 mm Hg ---- Peak grad, S 2 mm Hg Aortic root Value Ref Ventricular septum Value Ref Root diam 3.2 cm <4.2 IVS, ED (H) 1.2 cm 0.6 - 1.0 Root max diam, ED 3.2 cm <4.2 Right ventricle Value Ref Ascending aorta Value Ref SUMIT, LAX 3.2 cm AAo AP diam, S 2.8 cm ---- SUMIT minor ax, A4C 2.8 cm 1.9 - 3.5 AAo AP diam/bsa, S 1.3 cm/m^2 ---- mid Aortic arch Value Ref Left atrium Value Ref Arch diam 2.6 cm ---- AP dim, ES (H) 4.50 cm 3.00 - 4.00 Decending aorta Value Ref ML dim, A4C 4.2 cm Mervin peak chato 0.8 m/sec ---- SI dim, A4C 5.7 cm Vol/bsa, ES, A/L (H) 47 ml/m^2 16 - 34 Inferior vena cava Value Ref Diam 2.9 cm ---- Right atrium Value Ref SI dim, ES (H) 5.6 cm 3.4 - 5.3 ML dim, ES, A4C 4.1 cm 2.6 - 4.4 Estimated RAP 8 mm Hg Legend: (L) and (H) vijay values outside specified reference range. Prepared and electronically signed by Juan Ramon Kapadia MD 12/06/2019 12:21
[2019-12-06 12:48] LABS: ALT 33 U/L (7-52); AST 74 U/L (13-39); Albumin 3.6 g/dL (3.2-5.2); Albumin/Globulin Ratio 1.7 (1-3); Alkaline Phosphatase 738 U/L (34-104); Anion Gap 12 mmol/L (2-11); BUN/Creatinine Ratio 14.8 (8-20); Blood Urea Nitrogen 12 mg/dL (6-24); CO2 Carbon Dioxide 20 mmol/L (22-32); Calcium 8.3 mg/dL (8.6-10.3); Chloride 107 mmol/L (101-111); EGFR African American 113.7 (>60); EGFR Non-African American 93.9 (>60); Globulin 2.1 g/dL (2-4); Glucose 154 mg/dL (70-100); Magnesium 3.8 mg/dL (1.9-2.7); Potassium 3.8 mmol/L (3.5-5.0); Sodium 139 mmol/L (135-145); Total Protein 5.7 g/dL (6.4-8.9)
[2019-12-06 12:53] LABS: Troponin I 0.16 ng/mL (<0.03)
[2019-12-06] MEDS: KCL 10 MEQ/50 ML IVPREMIX* 10 MEQ/50 ML BAG IV SCH ×2 (13:03→14:32)
--- NOTE | 2019-12-06 13:45 | CONS ---
CONSULTATION REPORT: DATE OF CONSULT: 12/06/19 ATTENDING PHYSICIAN: Dr. Juan Ramon Kapadia, Cardiology.* (DICTATED BY JESSIE ALVAREZ NP) PRIMARY RECRUITMENT CONSULTANT: Dr. William Dunn. PRIMARY CEPHALOMETRIC ANALYST/ONCOLOGIST: Dr. Sharma. CHIEF COMPLAINT: Status post cardiac arrest. HISTORY OF PRESENT ILLNESS: This is an unfortunate 69-year-old male patient who follows Dr. William Dunn of our practice due to a notable history of nonischemic cardiomyopathy, LVEF 20% to 25% on 11/02/19 echocardiogram; in addition to newly found persistent AFib with labile heart rate control, high density PVC burden on 11/20/19 Holter; metastatic prostate cancer, on enzalutamide, please note that the patient was on this medication prior to his 10/30/19 admission. The patient presented to [facility] on 12/05/19 after suffering from a witnessed cardiac arrest. According to his , whom I personally spoke with , the patient has been doing well in regards to his systolic heart failure. She states ever since he had his thoracentesis, his breathing has returned to baseline. He has not been experiencing chest pain and she states that she was surprised because he actually had a "great day yesterday." He was in our outpatient office for an echocardiogram, which according to the patient's went well. She states around 5:30 p.m. while making dinner, she heard what she assumed was her sleeping with a snoring sound. She states that the sound was different than what she usually would expect from sleeping, so she went to go check on him and she found him sitting in his recliner slumped over and unresponsive. According to the admitting physician's H and P, his eyes were open and rolled back into his head. The patient's was not able to palpate a pulse, thus she started CPR and called 911. She describes ongoing agonal breathing. She states that his lips did start to turn blue while she was giving compressions. When EMS arrived, the patient was found to be in VFib and was defibrillated x1, given 1 dose of epinephrine and started on IV amiodarone therapy and transferred to [facility] for further evaluation. The patient had return of spontaneous circulation; however, he has not woken up and has been started since then on hypothermic protocol post arrest. We have been asked to see the patient in consultation due to VF arrest with recurrent VF/VT noted on telemetry. While being evaluated in the emergency room, the patient's magnesium was 1.4, potassium 3.2. He has been given IV magnesium and potassium. Troponin peaked at 0.29 on 12/05/19. The patient is intubated and mechanically ventilated. Please note that he is not on anticoagulation due to recurrent hematuria per outpatient notes. Last echocardiogram, according to our records, was on 11/02/19. Per report, LVEF 20% to 25%. The patient was in AFib at the time of study. Last ischemic evaluation via Lexiscan nuclear stress test on 10/30/19. Per report, resting ECG revealed AFib with PVCs. ECG portion was nondiagnostic. Per myocardial perfusion imaging report, the patient had normal perfusion, normal wall motion, TID was 0.99, EF 39%. Last Holter monitor was on 11/20/19. Per report, the patient's predominant rhythm was AFib, mean heart rate 98. The patient had 16,848 PVCs, no VT, with periods of tachycardia, rate in the 150s. The patient had a repeat outpatient echo on 12/05/19, although it is not available for me at this current time. Thoracentesis from 10/31/19 was suggestive of transudative process per medical records. PAST MEDICAL HISTORY: 1. Metastatic prostate cancer, historically on chemo and radiation. In October 2019, he had been on enzalutamide. 2. Pancytopenia. 3. Normocytic anemia. 4. Persistent AFib. 5. High density PVC burden. 6. Systolic heart failure. 7. Hematuria. PAST SURGICAL HISTORY: 1. Left eye cataract surgery. 2. Thoracentesis on 10/31/19 as mentioned above. 3. TURP. 4. Appendectomy. 5. Hernia repair. HOME MEDICATIONS: Per admission med rec: 1. Metoprolol 25 mg p.o. b.i.d. 2. Lasix 20 mg a day. 3. Digoxin 0.125 mg p.o. daily. 4. Pantoprazole 40 mg a day. 5. Candesartan 32 mg p.o. q.h.s. 6. Vitamin B12 1000 mcg a day. 7. Mucinex as directed. ALLERGIES: No known drug allergies. FAMILY HISTORY: Unable to obtain at this current time due to the patient's current medical status. SOCIAL HISTORY: The patient is retired, , lives at home with his . Does not drink. Does not utilize tobacco products or illegal substances. REVIEW OF SYSTEMS: Unable to obtain at this current time due to the patient's current medical state. PHYSICAL EXAM: Temperature is 98.4, pulse 75, respirations are set at 30 on mechanical ventilator, blood pressure 104/84. General: The patient is sedated , mechanically ventilated and currently receiving hypothermic protocol post arrest. HEENT: Pupils are pinpoint, restrict to light, not dilated or fixed. ET tube in place. Neck: Supple. Trachea midline. Unable to assess for JVD. Cardiac: Tachy. S1, S2. Irregular rate and rhythm. Distant heart tones. No obvious murmur auscultated. No rub or gallop. Lungs: Auscultated anteriorly. No evidence of adventitious breath sounds. The patient is mechanically ventilated. /GI: Abdomen is protuberant. Hypoactive bowel sounds. Extremities: No pedal edema, no clubbing, no cyanosis. SCDs are on bilaterally and functioning, with cooling blanket on top of the patient. DIAGNOSTIC STUDIES/LAB DATA: Blood work from 12/06/19: Sodium 142, potassium 3.3, chloride 112, carbon dioxide 20, BUN 10, creatinine 0.77. Troponin peaked at 0.29 on 12/05/19. Magnesium 1.4, lactic acid 3. TSH was 7.42. INR 1.24. White count 6.3, hemoglobin 8.8, hematocrit 28, platelets 127,000. Toxicology screen: Digoxin level was 0.6. 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 No evidence of intracranial hemorrhage. ECG, 12/06/19, reviewed; AFib/flutter, rate 104 with frequent PVCs with anterior Q waves. No ST segment elevation appreciated. Telemetry reviewed. The patient had a 23-beat count of monomorphic VT at 0929 on 12/06/19. Otherwise, he has been AFib/flutter, rates 80s to 90s. ASSESSMENT AND PLAN: 1. Status post ventricular fibrillation arrest, requiring cardiopulmonary resuscitation, external defibrillation and administration of IV epi and amiodarone therapy. The patient had profound hypokalemia, hypomagnesemia upon presentation and has been receiving IV replacement. We would recommend keeping potassium greater than 4, mag greater than 2, continuing IV amiodarone therapy at this time in addition to IV Lopressor therapy. He has a history of nonischemic cardiomyopathy, LVEF historically 20% to 25% on 11/02/19 echo with qtciflif-nl-gelo density PVC burden on 11/20/19 Holter monitor. The patient is not on anticoagulation for persistent atrial fibrillation due to reported ongoing hematuria. CT head did not reveal an acute hemorrhagic cerebrovascular accident. We would suggest ruling out cardioembolic cerebrovascular accident. The patient's neurologic status is unknown given he has been unresponsive and is currently sedated on mechanical ventilator and receiving hypothermic protocol. We will follow the patient closely to determine his neurologic status post arrest and consider eventual automatic implantable cardioverter defibrillator and consideration of cardiac catheterization. Again, we will follow closely. Troponin peaked at 0.29. Await echocardiogram. 2. History of reported nonischemic cardiomyopathy, LVEF 20% to 25%. The patient had Lexiscan nuclear stress test in October of 2019 with normal myocardial perfusion imaging. Normal wall motion. According to his , he had been in his usual state of health and did not have any chest pain. He has a known history of moderate to high intensity VPC burden, presented with ventricular fibrillation arrest. Continue IV Lopressor therapy and aggressive electrolyte replacement. 3. History of persistent atrial fibrillation with labile heart rate control. CHADS-VASc greater than 2. Historically not on anticoagulation due to recurrent hematuria, with known normocytic anemia and pancytopenia. The patient is on IV Lopressor therapy, historically on digoxin therapy. Dig level is subtherapeutic and is currently being held. We will follow. 4. History of metastatic prostate cancer. Follows Dr. Sharma. Hematology following. 5. Disposition: Pending course. The patient's condition is guarded. Listed full code. We will follow closely and make further recommendations depending on the patient's clinical course. Dr. Kapadia agrees with the above assessment and plan. Thank you for this kind consultation. Any future questions or concerns, please do not hesitate to contact our practice. JESSIE ALVAREZ, SOCIAL SCIENCE TEACHER [id number]/[facility] #: [id number] Patient examined and d/w Ed Qureshi, and Ms. Alvarez and the patient' s at the bedside on 12.06.2019 . Prognosis guarded given severe LV dysfunction and comorbidities. Etiology of cardiomyopathy uncertain but chemotoxicity, afib tachycardia induced CM, and CAD are all considerations. As per Dr. Dunn, the echo of 12/05/19 prior to arrest revealed an ef of 35-40%. His hematuria limits the ability to use antiplatelet and anticoagulation therapy and precludes ability to proceed with coronary revascularization if indicated. Also, we will need to reassess his mental function once he is normothermic and has had time to demonstrate recovery is possible. For now, continue care as per hospital wellness coordinator. replace k and mag continue iv amiodarone. follow troponins use iv lopressor and digoxin to control heart rate. follow for recovery of mental function. consider cardiac cath to exclude CAD and consider ICD if his clinical condition improves sufficiently. Oscar Kapadia MD 12.06.2019 [facility]
[2019-12-06 14:30] LABS: ABS Lymphocytes 0.3 10^3/ul (1.0-4.8); ABS Monocytes 0.6 10^3/ul (0-0.8); ABS Neutrophils 6.3 10^3/ul (1.5-7.7); Hematocrit 20 % (42-52); Hemoglobin 6.5 g/dL (14.0-18.0); Lymphocyte % 3.7 %; Mean Corpuscular HGB Conc 33 g/dL (31-36); Mean Corpuscular Hemoglobin 34 pg (27-31); Mean Corpuscular Volume 100 fL (80-94); Mean Platelet Volume 7.9 fL (7.4-10.4); Platelet Count 115 10^3/uL (150-450); Red Blood Count 1.95 10^6 /uL (4.18-5.48); Red Cell Distribution Width 22 % (10-15); White Blood Count 7.2 10^3/uL (3.5-10.8)
[2019-12-06] MEDS ORDERED: Amiodarone 360 MG IVPREMIX* 360 MG/200 ML BAG IV SCH (18:45)
[2019-12-06] MEDS: Pantoprazole IV* 40 MG IV SCH (19:57)
[2019-12-07] MEDS: CHLORHEXADINE (PERIDEX) VENT ORAL CARE TOPICAL SCH ×6 (00:29→20:59)
[2019-12-07 00:56] LABS: Hematocrit 29 % (42-52); Hemoglobin 9.5 g/dL (14.0-18.0)
[2019-12-07] MEDS ORDERED: NS 0.9% 500 ML* 500 ML IV ONE (01:07)
[2019-12-07] MEDS: Propofol* 100 ML IV SCH ×3 (02:44→11:30)
[2019-12-07] MEDS: Metoprolol Tartrate IV* 1 MG/ML 5 ML VIAL IV SCH ×4 (02:57→20:59)
[2019-12-07 04:39] LABS: ABS Lymphocytes 0.3 10^3/ul (1.0-4.8); ABS Monocytes 0.6 10^3/ul (0-0.8); Eosinophil % 0.3 %; Hematocrit 29 % (42-52); Hemoglobin 9.7 g/dL (14.0-18.0); Lymphocyte % 4.7 %; Mean Corpuscular HGB Conc 33 g/dL (31-36); Mean Corpuscular Hemoglobin 32 pg (27-31); Mean Corpuscular Volume 96 fL (80-94); Mean Platelet Volume 8.3 fL (7.4-10.4); Platelet Count 115 10^3/uL (150-450); Red Blood Count 3.07 10^6 /uL (4.18-5.48); Red Cell Distribution Width 23 % (10-15); White Blood Count 5.8 10^3/uL (3.5-10.8)
[2019-12-07 04:53] LABS: BUN/Creatinine Ratio 18.3 (8-20); Calcium 8.4 mg/dL (8.6-10.3); EGFR African American 132.3 (>60); EGFR Non-African American 109.4 (>60); Magnesium 2.1 mg/dL (1.9-2.7); Potassium 4.1 mmol/L (3.5-5.0)
[2019-12-07] MEDS: Heparin VIAL(*) 5000 UNITS/ML VIAL (FIVE THOUSAND) SUBCUT SCH ×3 (05:09→20:59)
[2019-12-07] MEDS ORDERED: Furosemide IV* 10 MG/ML 10 ML VIAL (100 MG) IV ONE (07:58)
--- NOTE | 2019-12-07 08:55 | PN ---
<Areli Alvarez - Last Filed: 12/07/19 08:50> Subjective Date of Service: 12/07/19 - s/p VF arrest, SHF Interval History: Patient had a 17 beat count of slow wide complex ventricular rhythm at 0200 no recurrent VF. Sedated and ventilated. Patient euthermic. Family at bedside. Patient had decrease urine output last night. Medications Active Medications: Amiodarone HCl (Cordarone Tab*) 400 mg G TUBE BID [facility] Stop: 12/21/19 08:59 Chlorhexidine Gluconate (Peridex Mouth Wash 0.12%*) 15 ml TOPICAL Q4H [facility] Last Admin: 12/07/19 08:32 Dose: 15 ml Fentanyl Citrate (Fentanyl*) 25 mcg IV SLOW PU Q2H PRN PRN Reason: POSTURING Last Admin: 12/06/19 00:03 Dose: 25 mcg Heparin Sodium (Porcine) (Heparin Vial(*)) 5,000 units SUBCUT Q8HR [facility] Last Admin: 12/07/19 05:09 Dose: 5,000 units Propofol (Diprivan*) 100 mls @ 0 mls/hr IV .PER PROTOCOL [facility]; Protocol Last Admin: 12/07/19 06:27 Dose: 21.8 mls/hr Metoprolol Tartrate (Lopressor Iv*) 5 mg IV Q6H [facility] Last Admin: 12/07/19 08:28 Dose: Not Given Pantoprazole Sodium (Protonix Iv*) 40 mg IV Q24H [facility] Last Admin: 12/06/19 19:57 Dose: 40 mg Objective Vital Signs: Temp Pulse Resp BP Pulse Ox 97.9 F 85 22 120/63 98 12/07/19 08:00 12/07/19 08:00 12/07/19 08:00 12/07/19 08:00 12/07/19 08:00 Oxygen Devices in Use Now: Endotracheal Tube, Mechanical Ventilator Appearance: sedated, ventilated. Eyes: PERRLA - pin point. Ears/Nose/Mouth/Throat: - - Et tube/OG tube in place. Neck: Trachea Midline Respiratory: - - + rales noted when breath sounds auscultated. Cardiovascular: No Edema, - - normal S1, S2, irregular rate and rhythm . no murmur. Extremities: No Edema, - - 2+ right DP, 1+ left DP. extremities cool to touch. Skin: No Rash or Ulcers Neurological: - - sedated at this time. Lines/Tubes/Other Access: Clean, Dry and Intact Naso-enteral Tube - OG tube, Clean, Dry and Intact Peripheral IV Laboratory Results: 12/07/19 04:23 12/07/19 04:23 INR (Anticoag Therapy) 1.24 (0.82-1.09) H 12/05/19 19:54 Total Bilirubin 0.60 mg/dL (0.2-1.0) 12/05/19 18:20 AST 102 U/L (13-39) H 12/05/19 18:20 ALT 42 U/L (7-52) 12/05/19 18:20 Alkaline Phosphatase 704 U/L (34-104) H 12/05/19 18:20 CK-MB (CK-2) 8.0 ng/mL (0.6-6.3) H 12/06/19 03:00 B-Natriuretic Peptide 405 pg/mL (<=100) H 12/05/19 18:20 Total Protein 5.7 g/dL (6.4-8.9) L 12/05/19 18:20 Albumin 3.5 g/dL (3.2-5.2) 12/05/19 18: Globulin 2.2 g/dL (2-4) 12/05/19 18: Albumin/Globulin Ratio 1.6 (1-3) 12/05/19 18:20 TSH 7.42 mcIU/mL (0.34-5.60) H 12/05/19 18:20 12/05/19 12/05/19 12/06/19 18:20 22:13 03:00 Troponin I 0.06 H* 0.29 H* 0.27 H* 12/06/19 12:10 Troponin I 0.16 H* Laboratory Results - last 24 hr 12/05/19 12/05/19 12/06/19 18:20 22:13 03:00 WBC RBC Hgb Hct MCV MCH MCHC RDW Plt Count MPV Neut % (Auto) Lymph % (Auto) Roosevelt % (Auto) Eos % (Auto) Baso % (Auto) Absolute Neuts (auto) Absolute Lymphs (auto) Absolute Monos (auto) Absolute Eos (auto) Absolute Basos (auto) Absolute Nucleated RBC Nucleated RBC % Sodium 139 142 Potassium 3.2 L 3.3 L Chloride 105 112 H Carbon Dioxide 18 L 20 L Anion Gap 16 H 10 BUN 9 10 Creatinine 0.91 0.77 Est GFR ( Amer) 99.4 120.5 Est GFR (Non-Af Amer) 82.1 99.6 BUN/Creatinine Ratio 9.9 13.0 Glucose 262 H 131 H POC Glucose (mg/dL) Lactic Acid Calcium 8.0 L 7.5 L Magnesium 1.4 L 1.4 L Total Bilirubin 0.60 AST 102 H ALT 42 Alkaline Phosphatase 704 H Total Creatine Kinase 154 136 183 CK-MB (CK-2) 2.1 6.1 8.0 H Troponin I 0.06 H* 0.29 H* 0.27 H* Total Protein 5.7 L Albumin 3.5 Globulin 2.2 Albumin/Globulin Ratio 1.6 TSH 7.42 H Free T4 0.93 Digoxin 0.6 L Blood Type Antibody Screen Crossmatch 12/06/19 12/06/19 12/06/19 08:19 12:10 13:00 WBC RBC Hgb Hct MCV MCH MCHC RDW Plt Count MPV Neut % (Auto) Lymph % (Auto) Roosevelt % (Auto) Eos % (Auto) Baso % (Auto) Absolute Neuts (auto) Absolute Lymphs (auto) Absolute Monos (auto) Absolute Eos (auto) Absolute Basos (auto) Absolute Nucleated RBC Nucleated RBC % Sodium 139 Potassium 3.8 Chloride 107 Carbon Dioxide 20 L Anion Gap 12 H BUN 12 Creatinine 0.81 Est GFR ( Amer) 113.7 Est GFR (Non-Af Amer) 93.9 BUN/Creatinine Ratio 14.8 Glucose 154 H POC Glucose (mg/dL) 188 H Lactic Acid 3.4 H* Calcium 8.3 L Magnesium 3.8 H Total Bilirubin 0.60 AST 74 H ALT 33 Alkaline Phosphatase 738 H Total Creatine Kinase CK-MB (CK-2) Troponin I 0.16 H* Total Protein 5.7 L Albumin 3.6 Globulin 2.1 Albumin/Globulin Ratio 1.7 TSH Free T4 Digoxin Blood Type Antibody Screen Crossmatch 12/06/19 12/06/19 12/06/19 13:55 16:27 17:27 WBC 7.2 RBC 1.95 L Hgb 6.5 L Hct 20 L MCV 100 H MCH 34 H MCHC 33 RDW 22 H Plt Count 115 L MPV 7.9 Neut % (Auto) 88.0 Lymph % (Auto) 3.7 Roosevelt % (Auto) 8.1 Eos % (Auto) 0.0 Baso % (Auto) 0.2 Absolute Neuts (auto) 6.3 Absolute Lymphs (auto) 0.3 L Absolute Monos (auto) 0.6 Absolute Eos (auto) 0.0 Absolute Basos (auto) 0.0 Absolute Nucleated RBC 0.0 Nucleated RBC % 0.0 Sodium Potassium Chloride Carbon Dioxide Anion Gap BUN Creatinine Est GFR ( Amer) Est GFR (Non-Af Amer) BUN/Creatinine Ratio Glucose POC Glucose (mg/dL) 169 H Lactic Acid Calcium Magnesium Total Bilirubin AST ALT Alkaline Phosphatase Total Creatine Kinase CK-MB (CK-2) Troponin I Total Protein Albumin Globulin Albumin/Globulin Ratio TSH Free T4 Digoxin Blood Type Cancelled Antibody Screen Cancelled Crossmatch 12/06/19 12/06/19 12/07/19 17:58 19:47 00:04 WBC RBC Hgb Hct MCV MCH MCHC RDW Plt Count MPV Neut % (Auto) Lymph % (Auto) Roosevelt % (Auto) Eos % (Auto) Baso % (Auto) Absolute Neuts (auto) Absolute Lymphs (auto) Absolute Monos (auto) Absolute Eos (auto) Absolute Basos (auto) Absolute Nucleated RBC Nucleated RBC % Sodium Potassium Chloride Carbon Dioxide Anion Gap BUN Creatinine Est GFR ( Amer) Est GFR (Non-Af Amer) BUN/Creatinine Ratio Glucose POC Glucose (mg/dL) 115 H 141 H Lactic Acid Calcium Magnesium Total Bilirubin AST ALT Alkaline Phosphatase Total Creatine Kinase CK-MB (CK-2) Troponin I Total Protein Albumin Globulin Albumin/Globulin Ratio TSH Free T4 Digoxin Blood Type O Positive Antibody Screen Negative Crossmatch See Detail 12/07/19 12/07/19 12/07/19 00:48 04:09 04:23 WBC RBC Hgb 9.5 L Hct 29 L MCV MCH MCHC RDW Plt Count MPV Neut % (Auto) Lymph % (Auto) Roosevelt % (Auto) Eos % (Auto) Baso % (Auto) Absolute Neuts (auto) Absolute Lymphs (auto) Absolute Monos (auto) Absolute Eos (auto) Absolute Basos (auto) Absolute Nucleated RBC Nucleated RBC % Sodium 135 Potassium 4.1 Chloride 104 Carbon Dioxide 22 Anion Gap 9 BUN 13 Creatinine 0.71 Est GFR ( Amer) 132.3 Est GFR (Non-Af Amer) 109.4 BUN/Creatinine Ratio 18.3 Glucose 217 H POC Glucose (mg/dL) 148 H Lactic Acid Calcium 8.4 L Magnesium 2.1 Total Bilirubin AST ALT Alkaline Phosphatase Total Creatine Kinase CK-MB (CK-2) Troponin I Total Protein Albumin Globulin Albumin/Globulin Ratio TSH Free T4 Digoxin Blood Type Antibody Screen Crossmatch 12/07/19 12/07/19 04:23 08:26 WBC 5.8 RBC 3.07 L Hgb 9.7 L Hct 29 L MCV 96 H MCH 32 H MCHC 33 RDW 23 H Plt Count 115 L MPV 8.3 Neut % (Auto) 85.1 Lymph % (Auto) 4.7 Roosevelt % (Auto) 9.5 Eos % (Auto) 0.3 Baso % (Auto) 0.4 Absolute Neuts (auto) 5.0 Absolute Lymphs (auto) 0.3 L Absolute Monos (auto) 0.6 Absolute Eos (auto) 0.0 Absolute Basos (auto) 0.0 Absolute Nucleated RBC 0.0 Nucleated RBC % 0.0 Sodium Potassium Chloride Carbon Dioxide Anion Gap BUN Creatinine Est GFR ( Amer) Est GFR (Non-Af Amer) BUN/Creatinine Ratio Glucose POC Glucose (mg/dL) 181 H Lactic Acid Calcium Magnesium Total Bilirubin AST ALT Alkaline Phosphatase Total Creatine Kinase CK-MB (CK-2) Troponin I Total Protein Albumin Globulin Albumin/Globulin Ratio TSH Free T4 Digoxin Blood Type Antibody Screen Crossmatch Diagnostic Imaging: *[facility]* [place] [address] Fax #: [phone] Transthoracic Echocardiogram Patient: Kameron Pan : 1950 Study Date: 12/06/2019 Age: 69 Gender: M HR: 95 bpm Height: 71 in /180.3 cm BSA: 2.11 m^2 Weight: 199.6 lb /90.7 kg BMI: 27.9 kg/m^2 *Homicide Squad Commanding Officer: * Divya Mohan [facility] *Referring Physician: * Radha Dyer *Reading Physician: * Juan Ramon Kapadia MD Indications: Cardiac Arrest. History: Atrial fibrillation. Congestive heart failure. PMH: Cardiomyopathy. Risk factors: Hypertension. Dyslipidemia. Conclusions Summary: - Left ventricle: Systolic function is severely reduced. The estimated ejection fraction is 10-15%. Systolic function is worse from the study of 11/02/2019. Severe diffuse hypokinesis with regional variations. - Regional wall motion abnormality: Akinesis of the basal-mid inferior myocardium. The mid lateral wall is relatively less hypokinetic. Severe hypokinesis elsewhere. - Right ventricle: Systolic function is mildly reduced. - Left atrium: The atrium is moderately dilated. - Right atrium: The atrium is mildly dilated. - Mitral valve: There is mild regurgitation. - Aortic valve: There is mild regurgitation. - Tricuspid valve: There is trace to mild regurgitation. - Pulmonary arteries: Systolic pressure can not be accurately estimated. Probably mild to moderately elevated at 48 mmhg. This report is only to be considered final once signed by the Provider(s) as displayed in the "<Electronically Signed by >" field (s). Absence of a signature indicates the report is in a draft status and still needs to be finalized. In the event this document was created by someone other than the signing Provider, the individual initiating the document will be listed in the "Entered by:" or "Dictated by:" marquez. EKG Data: Telemetry 12/06-12/07 reviewed; Afib rate 80-90's. Slow wide complex ventricular rhythm at 0200 ( 17 beats) ECG 12/07/2019; pending. Assessment/Plan #1 s/p VF arrest; patient's initiated CPR. Was in VF when EMS arrived, was defibrillated once and received one round of IV Epi. Has been on IV amio since. Yesterday 12/06/2019 he had recurrent VF successfully aborted with IV amio. Will convert IV amio to PO. ( Ordered 400mg BID via OG tube). K+ and mag are stable today. He has a h/o moderate to high PVC burden on 11/20/2019 holter with known severe LV dysfunction. Patient euthermic today. To have brain MRI. Will follow closely. Depending upon neuro status and clinical course may need LHC prior to AICD. Will speak with interventionalist to determine should patient clinically improve would he be a candidate for LHC here given severe LV dysfunction and cormobidities. Will follow closely. #2 h/o SHF; LVEF 10-15%. On IV lopressor. To receive IV diuresis today. Etiology not clear given chemotherapy, newly found persistant AF with labile heart rate control. Patient had normal MPI on recent nuclear stress test. #3 h/o Metastatic prostate cancer. Follows Dr. Sharma. Was on Xtandi. Per 2018 hospital records there is an increased risk of ischemic and cardiovascular events wtih Xtandi. Patient has bone marrow involvement. #4 h/o Persistent AF with labile heart rate control. Dig level .6 12/05/2019. On IV Lopressor 5mg Q6H. Not on anticoagulation due to recurrent hematuria per outpatient notes. Will follow and consider adding Dig depending upon rates. #5 Disposition; patient full code. d/w Dr. Kapadia who agrees with plan of care. Attending: Juan Ramon Kapadia <Juan Ramon Kapadia - Last Filed: 12/07/19 10:01> Medications Active Medications: Amiodarone HCl (Cordarone Tab*) 400 mg G TUBE BID [facility] Stop: 12/21/19 08:59 Last Admin: 12/07/19 08:57 Dose: 400 mg Chlorhexidine Gluconate (Peridex Mouth Wash 0.12%*) 15 ml TOPICAL Q4H [facility] Last Admin: 12/07/19 08:32 Dose: 15 ml Fentanyl Citrate (Fentanyl*) 25 mcg IV SLOW PU Q2H PRN PRN Reason: POSTURING Last Admin: 12/06/19 00:03 Dose: 25 mcg Heparin Sodium (Porcine) (Heparin Vial(*)) 5,000 units SUBCUT Q8HR [facility] Last Admin: 12/07/19 05:09 Dose: 5,000 units Propofol (Diprivan*) 100 mls @ 0 mls/hr IV .PER PROTOCOL [facility]; Protocol Last Admin: 12/07/19 06:27 Dose: 21.8 mls/hr Metoprolol Tartrate (Lopressor Iv*) 5 mg IV Q6H [facility] Last Admin: 12/07/19 08:28 Dose: Not Given Pantoprazole Sodium (Protonix Iv*) 40 mg IV Q24H [facility] Last Admin: 12/06/19 19:57 Dose: 40 mg Objective Vital Signs: Temp Pulse Resp BP Pulse Ox 97.7 F 78 26 99/62 97 12/07/19 09:31 12/07/19 09:31 12/07/19 09:00 12/07/19 09:31 12/07/19 09:31 Laboratory Results: 12/07/19 04:23 12/07/19 04:23 INR (Anticoag Therapy) 1.24 (0.82-1.09) H 12/05/19 19:54 Total Bilirubin 0.60 mg/dL (0.2-1.0) 12/05/19 18:20 AST 102 U/L (13-39) H 12/05/19 18:20 ALT 42 U/L (7-52) 12/05/19 18:20 Alkaline Phosphatase 704 U/L (34-104) H 12/05/19 18:20 CK-MB (CK-2) 8.0 ng/mL (0.6-6.3) H 12/06/19 03:00 B-Natriuretic Peptide 405 pg/mL (<=100) H 12/05/19 18:20 Total Protein 5.7 g/dL (6.4-8.9) L 12/05/19 18:20 Albumin 3.5 g/dL (3.2-5.2) 12/05/19 18: Globulin 2.2 g/dL (2-4) 12/05/19 18:20 Albumin/Globulin Ratio 1.6 (1-3) 12/05/19 18: TSH 7.42 mcIU/mL (0.34-5.60) H 12/05/19 18:20 12/05/19 12/05/19 12/06/19 18:20 22:13 03:00 Troponin I 0.06 H* 0.29 H* 0.27 H* 12/06/19 12/07/19 12:10 04:23 Troponin I 0.16 H* 0.10 H* Assessment/Plan Patient examined and chart reviewed. Discussed with Mary Ann Valentín, Pretty Quiroz, and at bedside. Will await recovery of neuro status and consider further cardiac evaluation with cardiac cath and evaluation for possible ICD at that time. For now, will continue control hr in afib, rx for CHF as bp will allow, replace lyes, and monitor for recurrent arrhythmias. Prognosis guarded. [facility] 2.6.20
[2019-12-07] MEDS: Amiodarone TAB* 400 MG G TUBE SCH ×2 (08:57→20:59)
[2019-12-07 09:15] LABS: Troponin I 0.1 ng/mL (<0.03)
--- NOTE | 2019-12-07 13:32 | PN ---
Date of Service: 12/07/19 Critical Care Services: No events overnight Vital Signs: Temp Pulse Resp BP SpO2 FiO2 36.8 C 82 24 95/63 98 30 12/07/19 10:16 12/07/19 10:16 12/07/19 10:00 12/07/19 10:16 12/07/19 10:16 12/07 08:00 Physical Exam: Gen: sedated on diprivan, actively rewarming this AM HEENT: NCAT, PERRL Lungs: some rhonchi Cardiac: S1S2 regular with some extrasystoles Abdomen: soft, ND, +BS Extremities: trace edema Neuro: sedated Fluid Balance (Past 24 Hours): I= O= Net Intake & Output 12/05/19 12/06/19 12/07/19 12/08/19 06:59 06:59 06:59 06:59 Intake Total 1745 2115.4 Output Total 298 118 4867 Balance 1549 1448.4 -1410 Weight 101.486 kg 102.232 kg 102.232 kg Intake: IV Fluids 1148 565.4 NS (0.9%) 1018 565.4 IVPB 78 263 Potassium 78 263 Medicated IV 519 884 CC - Amiodarone 274 415 CC - Propofol/Diprivan 245 469 Packed Cells 403 Output: Urine 60 667 1410 Wood 116 Residual 20 Wood 16 Fr Temperature 20 Probe Other: Estimated Void Medium # Voids 1 Labs: Laboratory Results - last 24 hr 12/06/19 12/06/19 12/06/19 13:00 13:55 16:27 WBC 7.2 RBC 1.95 L Hgb 6.5 L Hct 20 L MCV 100 H MCH 34 H MCHC 33 RDW 22 H Plt Count 115 L MPV 7.9 Neut % (Auto) 88.0 Lymph % (Auto) 3.7 [place] % (Auto) 8.1 Eos % (Auto) 0.0 Baso % (Auto) 0.2 Absolute Neuts (auto) 6.3 Absolute Lymphs (auto) 0.3 L Absolute Monos (auto) 0.6 Absolute Eos (auto) 0.0 Absolute Basos (auto) 0.0 Absolute Nucleated RBC 0.0 Nucleated RBC % 0.0 Sodium Potassium Chloride Carbon Dioxide Anion Gap BUN Creatinine Est GFR ( Amer) Est GFR (Non-Af Amer) BUN/Creatinine Ratio Glucose POC Glucose (mg/dL) 169 H Lactic Acid 3.4 H* Calcium Magnesium Troponin I Digoxin Blood Type Antibody Screen Crossmatch 12/06/19 12/06/19 12/06/19 17:27 17:58 19:47 WBC RBC Hgb Hct MCV MCH MCHC RDW Plt Count MPV Neut % (Auto) Lymph % (Auto) [place] % (Auto) Eos % (Auto) Baso % (Auto) Absolute Neuts (auto) Absolute Lymphs (auto) Absolute Monos (auto) Absolute Eos (auto) Absolute Basos (auto) Absolute Nucleated RBC Nucleated RBC % Sodium Potassium Chloride Carbon Dioxide Anion Gap BUN Creatinine Est GFR ( Amer) Est GFR (Non-Af Amer) BUN/Creatinine Ratio Glucose POC Glucose (mg/dL) 115 H Lactic Acid Calcium Magnesium Troponin I Digoxin Blood Type Cancelled O Positive Antibody Screen Cancelled Negative Crossmatch See Detail 12/07/19 12/07/19 12/07/19 00:04 00:48 04:09 WBC RBC Hgb 9.5 L Hct 29 L MCV MCH MCHC RDW Plt Count MPV Neut % (Auto) Lymph % (Auto) [place] % (Auto) Eos % (Auto) Baso % (Auto) Absolute Neuts (auto) Absolute Lymphs (auto) Absolute Monos (auto) Absolute Eos (auto) Absolute Basos (auto) Absolute Nucleated RBC Nucleated RBC % Sodium Potassium Chloride Carbon Dioxide Anion Gap BUN Creatinine Est GFR ( Amer) Est GFR (Non-Af Amer) BUN/Creatinine Ratio Glucose POC Glucose (mg/dL) 141 H 148 H Lactic Acid Calcium Magnesium Troponin I Digoxin Blood Type Antibody Screen Crossmatch 12/07/19 12/07/19 12/07/19 04:23 04:23 08:26 WBC 5.8 RBC 3.07 L Hgb 9.7 L Hct 29 L MCV 96 H MCH 32 H MCHC 33 RDW 23 H Plt Count 115 L MPV 8.3 Neut % (Auto) 85.1 Lymph % (Auto) 4.7 [place] % (Auto) 9.5 Eos % (Auto) 0.3 Baso % (Auto) 0.4 Absolute Neuts (auto) 5.0 Absolute Lymphs (auto) 0.3 L Absolute Monos (auto) 0.6 Absolute Eos (auto) 0.0 Absolute Basos (auto) 0.0 Absolute Nucleated RBC 0.0 Nucleated RBC % 0.0 Sodium 135 Potassium 4.1 Chloride 104 Carbon Dioxide 22 Anion Gap 9 BUN 13 Creatinine 0.71 Est GFR ( Amer) 132.3 Est GFR (Non-Af Amer) 109.4 BUN/Creatinine Ratio 18.3 Glucose 217 H POC Glucose (mg/dL) 181 H Lactic Acid Calcium 8.4 L Magnesium 2.1 Troponin I 0.10 H* Digoxin 1.0 Blood Type Antibody Screen Crossmatch Studies: MRI pending Nutrition: TF if not extubated today Impression: S/P likely arrhythmogenic cardiac arrest. Rewarmed now, getting MRI as I type and will DC diprivan on his return to ICU Plan: Cardiac Arrest - VF/VT/PMVT on amiodarone, converting to PO today. Frequency of ectopy markedly decreased last 24H. Last loss of pulse was 24H ago. TTM complete , rewarmed. MRI now and then DC diprivan on return. MRI needed not just for neuro prognostication but for possible CV interventions. If he has any ischemic brain he will be at risk to bleed with anticoag and antiplt therapy. Cardiology w/u pending neurological prognosis and MRI findings. D/W family in detail in multiple encounters daily. Critical Care Time: 35 minutes
[2019-12-07] MEDS: Albuterol/Ipratropium NEB.SOL* Albuterol 2.5 MG/Ipratropium 0.5 MG 3 ML INH SCH ×3 (16:00→22:51)
[2019-12-07] MEDS: Acetaminophen TAB* 325 MG PO PRN (16:16)
[2019-12-07] MEDS ORDERED: Furosemide IV* 10 MG/ML VIAL (40 MG) IV SLOW PU ONE (16:31)
[2019-12-07] MEDS: Pantoprazole IV* 40 MG IV SCH (20:59)
[2019-12-08] MEDS: CHLORHEXADINE (PERIDEX) VENT ORAL CARE TOPICAL SCH ×6 (02:21→21:13)
[2019-12-08] MEDS: Propofol* 100 ML IV SCH (02:21)
[2019-12-08] MEDS: Metoprolol Tartrate IV* 1 MG/ML 5 ML VIAL IV SCH ×5 (02:22→22:45)
[2019-12-08] MEDS ORDERED: Dexmedetomidine* 1,000 MCG in NS 0.9% 250 ML* 240 ML IV SCH (05:00)
[2019-12-08] MEDS: Heparin VIAL(*) 5000 UNITS/ML VIAL (FIVE THOUSAND) SUBCUT SCH ×3 (05:21→21:13)
[2019-12-08] MEDS: Acetaminophen TAB* 325 MG PO PRN ×2 (05:22→14:10)
[2019-12-08 05:25] LABS: Urine Appearance Cloudy; Urine Bilirubin Negative (Negative); Urine Blood Negative (Negative); Urine Color Yellow; Urine Glucose Negative (Negative); Urine Ketones Negative (Negative); Urine Nitrite Negative (Negative); Urine Protein 2+(100 mg/dL) (Negative); Urine Specific Gravity 1.023 (1.010-1.030); Urine Urobilinogen Negative (Negative)
[2019-12-08 05:26] LABS: Hematocrit 29 % (42-52); Hemoglobin 9.7 g/dL (14.0-18.0); Mean Corpuscular HGB Conc 34 g/dL (31-36); Mean Corpuscular Hemoglobin 32 pg (27-31); Mean Corpuscular Volume 96 fL (80-94); Mean Platelet Volume 8.1 fL (7.4-10.4); Platelet Count 122 10^3/uL (150-450); Red Cell Distribution Width 22 % (10-15)
[2019-12-08 05:27] LABS: Urine Bacteria Absent (Absent); Urine Red Blood Cell 1+(3-5/hpf) (Absent); Urine White Blood Cell Trace(0-5/hpf) (Absent)
[2019-12-08 05:40] LABS: BUN/Creatinine Ratio 19.6 (8-20); Calcium 8.3 mg/dL (8.6-10.3); EGFR African American 92.3 (>60); EGFR Non-African American 76.3 (>60); Magnesium 1.9 mg/dL (1.9-2.7); Potassium 3.9 mmol/L (3.5-5.0)
[2019-12-08 06:04] LABS: Polychromasia 1+
[2019-12-08 06:05] LABS: Microcytosis 1+
[2019-12-08 06:06] LABS: ABS Lymphocytes 0.2 10^3/ul (1.0-4.8); ABS Monocytes 0.4 10^3/ul (0-0.8); ABS Neutrophils 4.3 10^3/ul (1.5-7.7); Eosinophil % 0.2 %; Lymphocyte % 4.8 %
[2019-12-08] MEDS: Amiodarone TAB* 400 MG G TUBE SCH ×2 (07:47→21:13)
[2019-12-08] MEDS: Albuterol/Ipratropium NEB.SOL* Albuterol 2.5 MG/Ipratropium 0.5 MG 3 ML INH SCH ×6 (07:49→23:21)
[2019-12-08] MEDS ORDERED: KCL 10 MEQ/50 ML IVPREMIX* 10 MEQ/50 ML BAG IV ONE (08:28)
[2019-12-08] MEDS ORDERED: Magnesium Sulfate 1 GM IV* 1 GM/100 ML BAG IV ONE (08:28)
[2019-12-08] MEDS: Digoxin IV* 0.5 MG/2 ML AMP (0.25 MG/ML) IV SLOW PU SCH (09:16)
--- NOTE | 2019-12-08 09:18 | PN ---
<KimAreli - Last Filed: 12/08/19 09:12> Subjective Date of Service: 12/08/19 - s/p VF arrest Interval History: Patient has been having periods of breathing on his own. His is at bedside. He has developed a low grade fever. No recurrent VT/VF. Has been in AF with elevated rates. Medications Active Medications: Acetaminophen (Tylenol Tab*) 650 mg PO Q4H PRN PRN Reason: PAIN - MILD/ TEMP>100.4 Last Admin: 12/08/19 05:22 Dose: 650 mg Albuterol/Ipratropium (Duoneb (Albuterol 2.5 Mg/Ipratropium 0.5 Mg)) 1 neb INH [id number] AWAKE [facility] Last Admin: 12/08/19 07:49 Dose: 1 neb Amiodarone HCl (Cordarone Tab*) 400 mg G TUBE BID [facility] Stop: 12/21/19 08:59 Last Admin: 12/08/19 07:47 Dose: 400 mg Chlorhexidine Gluconate (Peridex Mouth Wash 0.12%*) 15 ml TOPICAL Q4H [facility] Last Admin: 12/08/19 07:47 Dose: 15 ml Digoxin (Digoxin Iv*) 0.125 mg IV SLOW PU DAILY [facility] Fentanyl Citrate (Fentanyl*) 25 mcg IV SLOW PU Q2H PRN PRN Reason: POSTURING Last Admin: 12/06/19 00:03 Dose: 25 mcg Heparin Sodium (Porcine) (Heparin Vial(*)) 5,000 units SUBCUT Q8HR [facility] Last Admin: 12/08/19 05:21 Dose: 5,000 units Dexmedetomidine HCl 1,000 mcg/ (Sodium Chloride) 250 mls @ 7.66 mls/hr IV Q24H [facility]; Protocol Last Admin: 12/08/19 04:50 Dose: 6.8 mls/hr Potassium Chloride (Potassium Chloride 10 Meq/50 Ml Ivpremix*) 10 meq in 50 mls @ 50 mls/hr IV ONCE ONE Stop: 12/08/19 09:27 Metoprolol Tartrate (Lopressor Iv*) 5 mg IV Q6H [facility] Last Admin: 12/08/19 07:45 Dose: 5 mg Pantoprazole Sodium (Protonix Iv*) 40 mg IV Q24H [facility] Last Admin: 02/06/20 20:59 Dose: 40 mg Objective Vital Signs: Temp Pulse Resp BP Pulse Ox 100.9 F 104 34 106/58 95 12/08/19 08:15 12/08/19 08:15 12/08/19 07:24 12/08/19 08:15 12/08/19 08:15 Oxygen Devices in Use Now: Endotracheal Tube, Mechanical Ventilator Appearance: sedated, ventilated. Eyes: PERRLA - pin point. Ears/Nose/Mouth/Throat: - - Et tube/OG tube in place. Neck: Trachea Midline Respiratory: - - + rales noted when breath sounds auscultated. Cardiovascular: No Edema, - - tachy S1, S2, irregular rate and rhythm . no murmur. Extremities: No Edema, - - 2+ right DP, 1+ left DP. extremities cool to touch. Skin: No Rash or Ulcers Neurological: - - sedated at this time. Lines/Tubes/Other Access: Clean, Dry and Intact Wood, Clean, Dry and Intact Naso-enteral Tube - OG tube, Clean, Dry and Intact Peripheral IV Laboratory Results: 12/08/19 04:17 12/08/19 04:17 INR (Anticoag Therapy) 1.24 (0.82-1.09) H 12/05/19 19:54 Total Bilirubin 0.60 mg/dL (0.2-1.0) 12/05/19 18:20 AST 102 U/L (13-39) H 12/05/19 18:20 ALT 42 U/L (7-52) 12/05/19 18:20 Alkaline Phosphatase 704 U/L (34-104) H 12/05/19 18:20 CK-MB (CK-2) 8.0 ng/mL (0.6-6.3) H 12/06/19 03:00 B-Natriuretic Peptide 405 pg/mL (<=100) H 12/05/19 18:20 Total Protein 5.7 g/dL (6.4-8.9) L 12/05/19 18:20 Albumin 3.5 g/dL (3.2-5.2) 12/05/19 18:20 Globulin 2.2 g/dL (2-4) 12/05/19 18:20 Albumin/Globulin Ratio 1.6 (1-3) 02/04/20 18:20 TSH 7.42 mcIU/mL (0.34-5.60) H 12/05/19 18:20 12/05/19 12/05/19 12/06/19 18:20 22:13 03:00 Troponin I 0.06 H* 0.29 H* 0.27 H* 12/06/19 12/07/19 12:10 04:23 Troponin I 0.16 H* 0.10 H* Laboratory Results - last 24 hr 12/07/19 12/07/19 12/07/19 04:23 13:54 16:24 WBC RBC Hgb Hct MCV MCH MCHC RDW Plt Count MPV Neut % (Auto) Lymph % (Auto) [place] % (Auto) Eos % (Auto) Baso % (Auto) Absolute Neuts (auto) Absolute Lymphs (auto) Absolute Monos (auto) Absolute Eos (auto) Absolute Basos (auto) Absolute Nucleated RBC Immature Gran % Neutrophils % Band Neutrophils % Lymphocytes % Monocytes % Nucleated RBC % Normal RBC Morphology Polychromasia Anisocytosis Microcytosis Sodium Potassium Chloride Carbon Dioxide Anion Gap BUN Creatinine Est GFR ( Amer) Est GFR (Non-Af Amer) BUN/Creatinine Ratio Glucose POC Glucose (mg/dL) 123 H 91 Calcium Magnesium Troponin I 0.10 H* Urine Color Urine Appearance Urine pH Ur Specific [place] Urine Protein Urine Ketones Urine Blood Urine Nitrate Urine Bilirubin Urine Urobilinogen Ur Leukocyte Esterase Urine WBC (Auto) Urine RBC (Auto) Urine Bacteria Urine Glucose Digoxin 1.0 12/07/19 12/08/19 12/08/19 21:03 01:06 04:17 WBC RBC Hgb Hct MCV MCH MCHC RDW Plt Count MPV Neut % (Auto) Lymph % (Auto) [place] % (Auto) Eos % (Auto) Baso % (Auto) Absolute Neuts (auto) Absolute Lymphs (auto) Absolute Monos (auto) Absolute Eos (auto) Absolute Basos (auto) Absolute Nucleated RBC Immature Gran % Neutrophils % Band Neutrophils % Lymphocytes % Monocytes % Nucleated RBC % Normal RBC Morphology Polychromasia Anisocytosis Microcytosis Sodium 137 Potassium 3.9 Chloride 105 Carbon Dioxide 23 Anion Gap 9 BUN 19 Creatinine 0.97 Est GFR ( Amer) 92.3 Est GFR (Non-Af Amer) 76.3 BUN/Creatinine Ratio 19.6 Glucose 115 H POC Glucose (mg/dL) 149 H 107 H Calcium 8.3 L Magnesium 1.9 Troponin I Urine Color Urine Appearance Urine pH Ur Specific [place] Urine Protein Urine Ketones Urine Blood Urine Nitrate Urine Bilirubin Urine Urobilinogen Ur Leukocyte Esterase Urine WBC (Auto) Urine RBC (Auto) Urine Bacteria Urine Glucose Digoxin 12/08/19 12/08/19 12/08/19 04:17 04:19 08:24 WBC 5.0 RBC 3.00 L Hgb 9.7 L Hct 29 L MCV 96 H MCH 32 H MCHC 34 RDW 22 H Plt Count 122 L MPV 8.1 Neut % (Auto) 87.6 Lymph % (Auto) 4.8 [place] % (Auto) 7.3 Eos % (Auto) 0.2 Baso % (Auto) 0.1 Absolute Neuts (auto) 4.3 Absolute Lymphs (auto) 0.2 L Absolute Monos (auto) 0.4 Absolute Eos (auto) 0.0 Absolute Basos (auto) 0.0 Absolute Nucleated RBC 0.0 Immature Gran % 14.0 H Neutrophils % 79.0 Band Neutrophils % 14.0 H Lymphocytes % 4.0 Monocytes % 3.0 Nucleated RBC % 0.0 Normal RBC Morphology Not Reportable Polychromasia 1+ Anisocytosis 1+ Microcytosis 1+ Sodium Potassium Chloride Carbon Dioxide Anion Gap BUN Creatinine Est GFR ( Amer) Est GFR (Non-Af Amer) BUN/Creatinine Ratio Glucose POC Glucose (mg/dL) 130 H Calcium Magnesium Troponin I Urine Color Yellow Urine Appearance Cloudy Urine pH 5.0 Ur Specific [place] 1.023 Urine Protein 2+(100 mg/dl) A Urine Ketones Negative Urine Blood Negative Urine Nitrate Negative Urine Bilirubin Negative Urine Urobilinogen Negative Ur Leukocyte Esterase Negative Urine WBC (Auto) Trace(0-5/hpf) Urine RBC (Auto) 1+(3-5/hpf) A Urine Bacteria Absent Urine Glucose Negative Digoxin Diagnostic Imaging: *[facility]* [place] [address] Fax #: [phone] Transthoracic Echocardiogram Patient: Lacho Garduno : 1950 Study Date: 12/06/2019 Age: 69 Gender: M HR: 95 bpm Height: 71 in /180.3 cm BSA: 2.11 m^2 Weight: 199.6 lb /90.7 kg BMI: 27.9 kg/m^2 *Manager Energy: [facility] *Referring Physician: * Radha Dyer *Reading Physician: Juan Ramon Sapp MD Indications: Cardiac Arrest. History: Atrial fibrillation. Congestive heart failure. PMH: Cardiomyopathy. Risk factors: Hypertension. Dyslipidemia. Conclusions Summary: - Left ventricle: Systolic function is severely reduced. The estimated ejection fraction is 10-15%. Systolic function is worse from the study of 11/02/2019. Severe diffuse hypokinesis with regional variations. - Regional wall motion abnormality: Akinesis of the basal-mid inferior myocardium. The mid lateral wall is relatively less hypokinetic. Severe hypokinesis elsewhere. - Right ventricle: Systolic function is mildly reduced. - Left atrium: The atrium is moderately dilated. - Right atrium: The atrium is mildly dilated. - Mitral valve: There is mild regurgitation. - Aortic valve: There is mild regurgitation. - Tricuspid valve: There is trace to mild regurgitation. - Pulmonary arteries: Systolic pressure can not be accurately estimated. Probably mild to moderately elevated at 48 mmhg. This report is only to be considered final once signed by the Provider(s) as displayed in the "<Electronically Signed by >" field (s). Absence of a signature indicates the report is in a draft status and still needs to be finalized. In the event this document was created by someone other than the signing Provider, the individual initiating the document will be listed in the "Entered by:" or "Dictated by:" marquez. Patient Name: LACHO GARDUNO Medical Record#: [id number] Ordering Physician: Jesse Villagran MD Acct.#: [id number] : 1950 Age: 69 Sex: M Location: INTENSIVE CARE UNIT Exam Date: 12/08/19417 ADM Status: ADM IN Order Information: CHEST AP/PORT Accession Number: [id number] CPT: 38404 INDICATION: Intubation, fever. COMPARISON: Comparison is made with a prior study from December 07, 2019. Correlation is also made with a prior study from December 05, 2019. TECHNIQUE: A portable view of the chest was obtained. FINDINGS: The patient is status post intubation. The endotracheal tube tip is at the level of the clavicular heads. There is a nasogastric tube which enters normal course. The catheter tip projects in the left upper quadrant. There appears to be a pH probe. The heart is within normal limits in size. There is diffuse prominence of the interstitial markings, patchy infiltrates at both lung bases and small bilateral pleural effusions which appear unchanged. IMPRESSION: FINDINGS SUGGESTIVE OF PULMONARY EDEMA LESS LIKELY PNEUMONIA, UNCHANGED. <Electronically signed by Bijan Ozuna MD in OV> 12/08/19801 Dictated By: Bijan Ozuna MD Dictated Date/Time: 12/08/19758 Transcribed Date/Time: 12/08/19758 Copy to: CC:Radha Dyer DO; Rg Sharma MD; Jaden John MD; Sage Oquendo MD; Jesse Villagran MD; Juan Ramon Kapadia MD Imaging - [facility] Imaging - [facility] Imaging - [facility] [address] [place] [id number] [place] [id number] [place] [phone] ph ([phone]) ph ([phone]) ph ([phone]) This report is only to be considered final once signed by the Provider(s) as displayed in the "<Electronically Signed by >" field (s). Absence of a signature indicates the report is in a draft status and still needs to be finalized. In the event this document was created by someone other than the signing Provider, the individual initiating the document will be listed in the "Entered by:" or "Dictated by:" marquez. EKG Data: Telemetry 12/06-12/07 reviewed; Afib [id number]'s + PVCs, no VT/VF Assessment/Plan #1 s/p VF arrest. completed hypothermic protocol. Patient has periods of breathing on his own but is still sedated thus, neuro testing not completed yet. Brain MRI was negative for CVA. ICU team following. He has a h/o moderate to high PVC burden on 11/20/2019 holter. Time of presentation Mag was 1.4 K+ 3.3, He has been receiving adequate electrolyte replacement and is now on Amio 400 mg PO BID. Depending upon neurologic function and prognosis for metastatic prostate cancer will consider diagnostic cath with AICD. Will follow closely. #2 h/o NICM; LVEF 35% on 12/05 outpatient echo. Was found to have newly diagnosed AF with RVR when he was diagnosed with NICM in 10/2019, in addition he was receiving Xtandi. Etiology not clear given ? tachy mediated, versus chemotherapy induced, versus PVC induced. #3 Metastatic Prostate Cancer; Follows Dr. Sharma. Await input on prognosis before consideration of AICD. h/o normocytic anemia, pancytopenia with bone marrow involvement. #4 Persistant AF with RVR; Will restart Digoxin .125mcg IV daily. Continue Lopressor 5mg Q6H prn with BP and HR parameters. Historically not on OAC per outpatient notes due to recurrent hematuria. #5 Low grade fever; patient having periods of tachycardia, + low grade fever( 100.9), RR 36 with SBP 90. Meets SIRS criteria. Will differ to ICU team. Attending: Juan Ramon Kapadia <Juan Ramon Kapadia - Last Filed: 12/08/19 20:06> Medications Active Medications: Acetaminophen (Tylenol Tab*) 650 mg PO Q4H PRN PRN Reason: PAIN - MILD/ TEMP>100.4 Last Admin: 12/08/19 14:10 Dose: 650 mg Albuterol/Ipratropium (Duoneb (Albuterol 2.5 Mg/Ipratropium 0.5 Mg)) 1 neb INH [id number] AWAKE [facility] Last Admin: 12/08/19 19:46 Dose: 1 neb Amiodarone HCl (Cordarone Tab*) 400 mg G TUBE BID [facility] Stop: 12/21/19 08:59 Last Admin: 12/08/19 07:47 Dose: 400 mg Chlorhexidine Gluconate (Peridex Mouth Wash 0.12%*) 15 ml TOPICAL Q4H [facility] Last Admin: 12/08/19 14:35 Dose: 15 ml Digoxin (Digoxin Iv*) 0.125 mg IV SLOW PU DAILY [facility] Last Admin: 12/08/19 09:16 Dose: 0.125 mg Fentanyl Citrate (Fentanyl*) 25 mcg IV SLOW PU Q2H PRN PRN Reason: POSTURING Last Admin: 12/06/19 00:03 Dose: 25 mcg Furosemide (Lasix Iv*) 60 mg IV BID [facility] Last Admin: 12/08/19 12:06 Dose: 60 mg Heparin Sodium (Porcine) (Heparin Vial(*)) 5,000 units SUBCUT Q8HR [facility] Last Admin: 12/08/19 14:36 Dose: 5,000 units Ceftriaxone Sodium 1 gm/ (Sodium Chloride) 50 mls @ 100 mls/hr IVPB Q24H [facility] Last Admin: 12/08/19 10:52 Dose: 100 mls/hr Vancomycin HCl 1,250 mg/ (Sodium Chloride) 250 mls @ 166.667 mls/hr IVPB Q8H [facility] Metoprolol Tartrate (Lopressor Iv*) 5 mg IV Q6H [facility] Last Admin: 12/08/19 14:36 Dose: 5 mg Pantoprazole Sodium (Protonix Iv*) 40 mg IV Q24H [facility] Last Admin: 12/07/19 20:59 Dose: 40 mg Pharmacy Consult (Vancomycin Per Pharmacy*) 1 note FOLLOW UP .VANC PER PHARMACY [facility]ERT[facility]; Protocol Pharmacy Profile Note (Vancomycin Trough Check) 1 note FOLLOW UP ONCE ONE Stop: 12/09/19 15:31 Objective Vital Signs: Temp Pulse Resp BP Pulse Ox 99.1 F 113 27 86/53 93 12/08/19 18:05 12/08/19 19:47 12/08/19 19:47 12/08/19 18:05 12/08/19 19:47 Laboratory Results: 12/08/19 04:17 12/08/19 04:17 INR (Anticoag Therapy) 1.24 (0.82-1.09) H 12/05/19 19:54 Total Bilirubin 0.60 mg/dL (0.2-1.0) 12/05/19 18:20 AST 102 U/L (13-39) H 12/05/19 18:20 ALT 42 U/L (7-52) 12/05/19 18:20 Alkaline Phosphatase 704 U/L (34-104) H 12/05/19 18:20 CK-MB (CK-2) 8.0 ng/mL (0.6-6.3) H 12/06/19 03:00 B-Natriuretic Peptide 405 pg/mL (<=100) H 12/05/19 18: Total Protein 5.7 g/dL (6.4-8.9) L 12/05/19 18:20 Albumin 3.5 g/dL (3.2-5.2) 12/05/19 18: Globulin 2.2 g/dL (2-4) 12/05/19 18:20 Albumin/Globulin Ratio 1.6 (1-3) 12/05/19 18:20 TSH 7.42 mcIU/mL (0.34-5.60) H 12/05/19 18:20 12/05/19 12/05/19 12/06/19 18:20 22:13 03:00 Troponin I 0.06 H* 0.29 H* 0.27 H* 12/06/19 12/07/19 12:10 04:23 Troponin I 0.16 H* 0.10 H* Assessment/Plan Patient examined and d/w Ms. Pretty Alvarez, and the patient's at the bedside. Agree with plan as above. Will continue to adjust rate control meds and await improvement in mental and cardiac function. ID status to be addressed as per the tool grinder operator team. AGGIE Kapadia MD 12.08.19 8:06 pm
[2019-12-08] MEDS ORDERED: cefTRIAXone(*) 1 GM in NS 0.9% 50 ML* 50 ML IVPB SCH (11:00)
--- NOTE | 2019-12-08 11:06 | PN ---
Date of Service: 12/08/19 Critical Care Services: Agitation overnight, restarted on sedation. Vital Signs: Temp Pulse Resp BP SpO2 FiO2 38.3 C 96 34 106/58 95 30 12/08/19 08:15 12/08/19 09:16 12/08/19 09:00 12/08/19 08:15 12/08/19 08:15 12/08 07:24 Physical Exam: Gen: sedated HEENT: NCAT, PERRL Lungs: coarse entry, rhonchi Cardiac: S1S2 irregular Abdomen: soft, ND, +BS Extremities: +1 edema Neuro: moves ext spont, sedated. Fluid Balance (Past 24 Hours): I= O= Net Intake & Output 12/06/19 12/07/19 12/08/19 12/09/19 06:59 06:59 06:59 06:59 Intake Total 1745 2115.4 495.7 403 Output Total 116 955 6703 222 Balance 1549 1448.4 -2182.3 181 Weight 101.486 kg 102.232 kg 98.7 kg Intake: IV Fluids 1148 565.4 117.9 NS (0.9%) 1018 565.4 117.9 IVPB 78 263 Potassium 78 263 Medicated IV 519 884 377.8 CC - Amiodarone 274 415 79.8 CC - Dexmedetomidine/ 14 Precedex CC - Propofol/Diprivan 245 469 284 Oral 0 0 Packed Cells 403 403 Output: Urine 60 667 2678 222 Wood 116 Residual 20 Wood 16 Fr Temperature 20 Probe Other: Estimated Void Medium # Voids 1 Labs: Laboratory Results - last 24 hr 12/07/19 12/07/19 12/07/19 13:54 16:24 21:03 WBC RBC Hgb Hct MCV MCH MCHC RDW Plt Count MPV Neut % (Auto) Lymph % (Auto) [place] % (Auto) Eos % (Auto) Baso % (Auto) Absolute Neuts (auto) Absolute Lymphs (auto) Absolute Monos (auto) Absolute Eos (auto) Absolute Basos (auto) Absolute Nucleated RBC Immature Gran % Neutrophils % Band Neutrophils % Lymphocytes % Monocytes % Nucleated RBC % Normal RBC Morphology Polychromasia Anisocytosis Microcytosis Sodium Potassium Chloride Carbon Dioxide Anion Gap BUN Creatinine Est GFR ( Amer) Est GFR (Non-Af Amer) BUN/Creatinine Ratio Glucose POC Glucose (mg/dL) 123 H 91 149 H Calcium Magnesium Urine Color Urine Appearance Urine pH Ur Specific [place] Urine Protein Urine Ketones Urine Blood Urine Nitrate Urine Bilirubin Urine Urobilinogen Ur Leukocyte Esterase Urine WBC (Auto) Urine RBC (Auto) Urine Bacteria Urine Glucose 12/08/19 12/08/19 12/08/19 01:06 04:17 04:17 WBC 5.0 RBC 3.00 L Hgb 9.7 L Hct 29 L MCV 96 H MCH 32 H MCHC 34 RDW 22 H Plt Count 122 L MPV 8.1 Neut % (Auto) 87.6 Lymph % (Auto) 4.8 [place] % (Auto) 7.3 Eos % (Auto) 0.2 Baso % (Auto) 0.1 Absolute Neuts (auto) 4.3 Absolute Lymphs (auto) 0.2 L Absolute Monos (auto) 0.4 Absolute Eos (auto) 0.0 Absolute Basos (auto) 0.0 Absolute Nucleated RBC 0.0 Immature Gran % 14.0 H Neutrophils % 79.0 Band Neutrophils % 14.0 H Lymphocytes % 4.0 Monocytes % 3.0 Nucleated RBC % 0.0 Normal RBC Morphology Not Reportable Polychromasia 1+ Anisocytosis 1+ Microcytosis 1+ Sodium 137 Potassium 3.9 Chloride 105 Carbon Dioxide 23 Anion Gap 9 BUN 19 Creatinine 0.97 Est GFR ( Amer) 92.3 Est GFR (Non-Af Amer) 76.3 BUN/Creatinine Ratio 19.6 Glucose 115 H POC Glucose (mg/dL) 107 H Calcium 8.3 L Magnesium 1.9 Urine Color Urine Appearance Urine pH Ur Specific [place] Urine Protein Urine Ketones Urine Blood Urine Nitrate Urine Bilirubin Urine Urobilinogen Ur Leukocyte Esterase Urine WBC (Auto) Urine RBC (Auto) Urine Bacteria Urine Glucose 12/08/19 12/08/19 04:19 08:24 WBC RBC Hgb Hct MCV MCH MCHC RDW Plt Count MPV Neut % (Auto) Lymph % (Auto) [place] % (Auto) Eos % (Auto) Baso % (Auto) Absolute Neuts (auto) Absolute Lymphs (auto) Absolute Monos (auto) Absolute Eos (auto) Absolute Basos (auto) Absolute Nucleated RBC Immature Gran % Neutrophils % Band Neutrophils % Lymphocytes % Monocytes % Nucleated RBC % Normal RBC Morphology Polychromasia Anisocytosis Microcytosis Sodium Potassium Chloride Carbon Dioxide Anion Gap BUN Creatinine Est GFR ( Amer) Est GFR (Non-Af Amer) BUN/Creatinine Ratio Glucose POC Glucose (mg/dL) 130 H Calcium Magnesium Urine Color Yellow Urine Appearance Cloudy Urine pH 5.0 Ur Specific [place] 1.023 Urine Protein 2+(100 mg/dl) A Urine Ketones Negative Urine Blood Negative Urine Nitrate Negative Urine Bilirubin Negative Urine Urobilinogen Negative Ur Leukocyte Esterase Negative Urine WBC (Auto) Trace(0-5/hpf) Urine RBC (Auto) 1+(3-5/hpf) A Urine Bacteria Absent Urine Glucose Negative Studies: CXR with mild CHF Nutrition: Glucerna at 60 Impression: S/P cardiac arrest with relatively encouraging MRI, currently sedated. Plan: Cardiac Arrest - no further episodes. Amio and BB and Dig. Appreciate Cardiology 's ongoing support. MRI yesterday without any dramatic findings so I remain hopeful he will wake. While he is sedated, however, that cannot occur. DC ALL SEDATION. Bronchitis vs Pneumonia - some fever, no leukocytosis but does have significant bandemia with some secretions. 35% of TTM patients develop pneumonia, Start ceftriaxone. Will not dose quinolone or macrolide in this patient with recurrent VT. Starting TF, GI/DVT prophylaxis, hopefully we'll see some waking today. D/W at bedside. Critical Care Time: 35 minutes
[2019-12-08] MEDS ORDERED: Perflutren Lipid Microsphere* 3 ML VIAL ONE (11:21)
[2019-12-08] MEDS: Furosemide IV* 10 MG/ML 10 ML VIAL (100 MG) IV SCH ×2 (12:06→21:13)
--- NOTE | 2019-12-08 13:44 | ECHO ---
*[facility]* [place] [address] Fax #: [phone] Limited Transthoracic Echocardiogram Patient: Kameron Pan : 1950 Study Date: 12/08/2019 Age: 69 Gender: M HR: 86 bpm Height: 71 in /180.3 cm BSA: 2.25 m^2 Weight: 217 lb /98.6 kg BMI: 30.3 kg/m^2 *Architectural Examiner: [facility] *Referring Physician: * Areli Alvarez *Reading Physician: * Juan Ramon Kapadia MD Indications: Cardiac Arrest. History: Atrial fibrillation. Congestive heart failure. PMH: Cardiomyopathy. Risk factors: Hypertension. Dyslipidemia. Conclusions Summary: - Left ventricle: Systolic function is severely reduced. The estimated ejection fraction is 15-20%. Systolic function is slightly improved from 10-15% on the study of 12/05/2019. Severe diffuse hypokinesis with regional variations.More pronounced anterior hypokinesis relativel to the other segments. - Right ventricle: Systolic function is moderately reduced. Study data: Transthoracic echocardiogram, limited study. Procedure: Transthoracic echocardiography was performed. Image quality was suboptimal. Intravenous Definity , 2 mlswas administered. Image enhancement administered by LIBORIO Ibrahimcommunity living specialist. Location: ICU Patient status: Inpatient. Patient room number: 5. Comparison is made to the study of 12/05/2019. Rhythm: Normal sinus rhythm. Findings Left ventricle: Systolic function is severely reduced. The estimated ejection fraction is 15-20%. Systolic function is slightly improved from 10-15% on the study of 12/05/2019. Severe diffuse hypokinesis with regional variations.More pronounced anterior hypokinesis relativel to the other segments. Right ventricle: Systolic function is moderately reduced. Pericardium: There is no significant pericardial effusion. Prepared and electronically signed by Juan Ramon Kapadia MD 12/08/2019 13:43
[2019-12-08] MEDS ORDERED: Vancomycin(*) 1,500 MG in NS 0.9% 250 ML* 250 ML IVPB ONE (15:30)
[2019-12-08] MEDS ORDERED: Vancomycin per Pharmacy* NOTE FOLLOW UP SCH (16:00)
[2019-12-08] MEDS: Pantoprazole IV* 40 MG IV SCH (21:13)
[2019-12-08] MEDS ORDERED: Digoxin IV* 0.5 MG/2 ML AMP (0.25 MG/ML) IV ONE (22:00)
[2019-12-09] MEDS: CHLORHEXADINE (PERIDEX) VENT ORAL CARE TOPICAL SCH ×6 (01:14→20:01)
[2019-12-09] MEDS: Vancomycin(*) 1,250 MG in NS 0.9% 250 ML* 250 ML IVPB SCH ×2 (01:14→08:56)
[2019-12-09] MEDS: Albuterol/Ipratropium NEB.SOL* Albuterol 2.5 MG/Ipratropium 0.5 MG 3 ML INH SCH ×2 (03:18→07:45)
[2019-12-09] MEDS: Metoprolol Tartrate IV* 1 MG/ML 5 ML VIAL IV SCH ×4 (04:41→20:01)
[2019-12-09] MEDS: Heparin VIAL(*) 5000 UNITS/ML VIAL (FIVE THOUSAND) SUBCUT SCH ×3 (04:41→22:56)
[2019-12-09 05:12] LABS: BUN/Creatinine Ratio 27.7 (8-20); Calcium 8.4 mg/dL (8.6-10.3); EGFR African American 78.2 (>60); EGFR Non-African American 64.6 (>60); Magnesium 2.2 mg/dL (1.9-2.7); Phosphorus 4.2 mg/dL (2.5-5.0); Potassium 4.3 mmol/L (3.5-5.0)
[2019-12-09 05:25] LABS: Hematocrit 30 % (42-52); Mean Corpuscular HGB Conc 34 g/dL (31-36); Mean Corpuscular Hemoglobin 32 pg (27-31); Mean Corpuscular Volume 96 fL (80-94); Red Blood Count 3.11 10^6 /uL (4.18-5.48); Red Cell Distribution Width 21 % (10-15)
[2019-12-09 05:53] LABS: Polychromasia 1+
[2019-12-09 05:55] LABS: ABS Lymphocytes 0.2 10^3/ul (1.0-4.8); ABS Monocytes 0.3 10^3/ul (0-0.8); ABS Neutrophils 6.5 10^3/ul (1.5-7.7); Lymphocyte % 2.9 %; Mean Platelet Volume 8.2 fL (7.4-10.4); Nucleated Red Blood Cells % 0.2; Platelet Count 114 10^3/uL (150-450)
[2019-12-09] MEDS: Acetaminophen TAB* 325 MG PO PRN ×4 (06:21→22:58)
[2019-12-09] MEDS ORDERED: Albuterol/Ipratropium NEB.SOL* Albuterol 2.5 MG/Ipratropium 0.5 MG 3 ML INH PRN (08:40)
[2019-12-09] MEDS: Amiodarone TAB* 400 MG G TUBE SCH ×2 (08:56→20:02)
[2019-12-09] MEDS: Digoxin IV* 0.5 MG/2 ML AMP (0.25 MG/ML) IV SLOW PU SCH (08:56)
[2019-12-09] MEDS: Furosemide IV* 10 MG/ML 10 ML VIAL (100 MG) IV SCH (08:57)
[2019-12-09] MEDS ORDERED: Calcium Gluconate INJ* 2 GM in NS 0.9% 100 ML* 100 ML IV ONE (10:00)
[2019-12-09] MEDS: Cefepime 1 GM in Dextrose(*) 1 GM/50 ML BAG IV SCH ×2 (10:38→22:57)
[2019-12-09] MEDS: Digoxin IV* 0.5 MG/2 ML AMP (0.25 MG/ML) IV SLOW PU ONE ×2 (11:06→13:14)
[2019-12-09] MEDS ORDERED: Lorazepam PYXIS KEY PRN (11:09)
[2019-12-09] MEDS ORDERED: LORazepam INJ* 2 MG/ML 1 ML VIAL IV PUSH ONE (11:10)
[2019-12-09] MEDS ORDERED: LORazepam INJ* 2 MG/ML 1 ML VIAL ONE (11:10)
[2019-12-09] MEDS ORDERED: Lorazepam PYXIS KEY ONE (11:10)
[2019-12-09] MEDS: levETIRAcetam 1000MG IVPREMIX* 1,000 MG/100 ML BAG IVPB SCH (11:37)
--- NOTE | 2019-12-09 11:39 | PN ---
Date of Service: 12/09/19 Critical Care Services: Tachycardia overnight responded to digoxin. Vital Signs: Temp Pulse Resp BP SpO2 FiO2 37.2 C 139 27 112/77 94 30 12/09/19 10:00 12/09/19 11:06 12/09/19 11:15 12/09/19 10:00 12/09/19 10:00 12/09 08:00 Physical Exam: Gen: opens eyes to aggressive stim, no tracking HEENT: NCAT, PERRL Lungs: coarse entry Cardiac: S1S2 regular Abdomen: soft, NT, ND, +BS Extremities: no edema Neuro: moves LE spont Fluid Balance (Past 24 Hours): I= O= Net Intake & Output 12/07/19 12/08/19 12/09/19 12/10/19 06:59 06:59 06:59 06:59 Intake Total 2115.4 495.7 1974 100 Output Total 667 2678 2922 760 Balance 1448.4 -2182.3 -948 -660 Weight 102.232 kg 98.7 kg 98.2 kg Intake: IV Fluids 565.4 117.9 921 ABX - VANCOMYCIN 580 NS (0.9%) 565.4 117.9 341 IVPB 263 Potassium 263 Medicated IV 884 377.8 CC - Amiodarone 415 79.8 CC - Dexmedetomidine/ 14 Precedex CC - Propofol/Diprivan 469 284 Oral 0 0 Tube Feeding 650 Tube Feeding Flush Amount 0 100 Packed Cells 403 403 Output: Urine 667 2678 2922 620 Wood 140 Tube Feeding Residual 0 Amount Wasted Other: Date of Last Bowel 12/08/19 Movement # Bowel Movements 1 Estimated Stool Amount Medium Labs: Laboratory Results - last 24 hr 12/08/19 12/08/19 12/09/19 11:45 16:13 04:39 WBC RBC Hgb Hct MCV MCH MCHC RDW Plt Count MPV Neut % (Auto) Lymph % (Auto) [place] % (Auto) Eos % (Auto) Baso % (Auto) Absolute Neuts (auto) Absolute Lymphs (auto) Absolute Monos (auto) Absolute Eos (auto) Absolute Basos (auto) Absolute Nucleated RBC Immature Gran % Neutrophils % Band Neutrophils % Lymphocytes % Reactive Lymphs % Monocytes % Eosinophils % Metamyelocytes % Myelocytes % Nucleated RBC % Toxic Granulation Normal RBC Morphology Polychromasia Sodium Potassium Chloride Carbon Dioxide Anion Gap BUN Creatinine Est GFR ( Amer) Est GFR (Non-Af Amer) BUN/Creatinine Ratio Glucose POC Glucose (mg/dL) 139 H 157 H 168 H Calcium Ionized Calcium Phosphorus Magnesium 12/09/19 12/09/19 12/09/19 04:40 04:40 04:40 WBC 7.0 RBC 3.11 L Hgb 10.0 L Hct 30 L MCV 96 H MCH 32 H MCHC 34 RDW 21 H Plt Count 114 L MPV 8.2 Neut % (Auto) 92.2 Lymph % (Auto) 2.9 [place] % (Auto) 4.8 Eos % (Auto) 0.0 Baso % (Auto) 0.1 Absolute Neuts (auto) 6.5 Absolute Lymphs (auto) 0.2 L Absolute Monos (auto) 0.3 Absolute Eos (auto) 0.0 Absolute Basos (auto) 0.0 Absolute Nucleated RBC 0.0 Immature Gran % 31.0 H Neutrophils % 58.0 Band Neutrophils % 26.0 H Lymphocytes % 6.0 Reactive Lymphs % 1.0 Monocytes % 3.0 Eosinophils % 1.0 Metamyelocytes % 3.0 H Myelocytes % 2.0 H Nucleated RBC % 0.2 Toxic Granulation 1+ Normal RBC Morphology Not Reportable Polychromasia 1+ Sodium 139 Potassium 4.3 Chloride 106 Carbon Dioxide 24 Anion Gap 9 BUN 31 H Creatinine 1.12 Est GFR ( Amer) 78.2 Est GFR (Non-Af Amer) 64.6 BUN/Creatinine Ratio 27.7 H Glucose 127 H POC Glucose (mg/dL) Calcium 8.4 L Ionized Calcium 1.06 L Phosphorus 4.2 Magnesium 2.2 Nutrition: Juan Daniel TF at goal Impression: S/P cardiac arrest with ROSC remains encephalopathic Plan: Cardiac Arrest - no further episodes. Amio and BB and Dig. Appreciate Cardiology 's ongoing support. Extra Dig overnight and more this AM with enhanced rate control. Negative balance and no more edema on exam, DC lasix. MRI 12/07 without any dramatic findings so I remain hopeful he will wake but it is now a few days and he remains encephalopathic. Will check EEG to r/o non-convulsive status. Remains off all sedation x 24H. Bronchitis vs Pneumonia - some fever even after broadening with Vanco for staph from sputum with speciation pending, now C&S available and MSSA, DC Vanco. Will broaden the ceftriaxone to cefepime still no leukocytosis but does have significant bandemia with some secretions. Will not empirically dose quinolone or macrolide in this patient with recurrent VT, polymorphic VT. Certainly central fevers could be at work as could non-convulsive status. EEG will help. Tolerating TF, GI/DVT prophylaxis. D/W at bedside. Critical Care Time: 30 minutes
[2019-12-09] MEDS ORDERED: Metoprolol Tartrate IV* 1 MG/ML 5 ML VIAL IV ONE ×2 (12:03→22:48)
[2019-12-09] MEDS ORDERED: Digoxin IV* 0.5 MG/2 ML AMP (0.25 MG/ML) IV SLOW PU ONE (13:00)
[2019-12-09] MEDS ORDERED: Vancomycin Trough Check NOTE FOLLOW UP ONE (15:30)
[2019-12-09] MEDS: Pantoprazole IV* 40 MG IV SCH (20:02)
[2019-12-09] MEDS ORDERED: Metoprolol Tartrate IV* 1 MG/ML 5 ML VIAL ONE (22:50)
[2019-12-10] MEDS: levETIRAcetam 1000MG IVPREMIX* 1,000 MG/100 ML BAG IVPB SCH ×2 (00:50→11:00)
[2019-12-10] MEDS: CHLORHEXADINE (PERIDEX) VENT ORAL CARE TOPICAL SCH ×6 (00:51→20:12)
[2019-12-10] MEDS: Metoprolol Tartrate IV* 1 MG/ML 5 ML VIAL IV SCH ×2 (02:49→07:58)
[2019-12-10] MEDS: Acetaminophen TAB* 325 MG PO PRN (02:56)
[2019-12-10] MEDS: Heparin VIAL(*) 5000 UNITS/ML VIAL (FIVE THOUSAND) SUBCUT SCH ×3 (06:07→22:15)
[2019-12-10 06:11] LABS: Hematocrit 28 % (42-52); Hemoglobin 9.2 g/dL (14.0-18.0); Mean Corpuscular HGB Conc 34 g/dL (31-36); Mean Corpuscular Hemoglobin 32 pg (27-31); Mean Corpuscular Volume 95 fL (80-94); Mean Platelet Volume 8.5 fL (7.4-10.4); Platelet Count 112 10^3/uL (150-450); Red Blood Count 2.89 10^6 /uL (4.18-5.48); Red Cell Distribution Width 21 % (10-15); White Blood Count 5.8 10^3/uL (3.5-10.8)
[2019-12-10 06:18] LABS: BUN/Creatinine Ratio 40.7 (8-20); Calcium 8.3 mg/dL (8.6-10.3); EGFR African American 99.4 (>60); EGFR Non-African American 82.1 (>60); Potassium 3.8 mmol/L (3.5-5.0)
[2019-12-10 06:41] LABS: Polychromasia 1+
[2019-12-10 06:43] LABS: ABS Lymphocytes 0.2 10^3/ul (1.0-4.8); ABS Monocytes 0.3 10^3/ul (0-0.8); ABS Neutrophils 5.4 10^3/ul (1.5-7.7); Eosinophil % 0.4 %; Lymphocyte % 2.8 %; Nucleated Red Blood Cells % 0.1
[2019-12-10] MEDS ORDERED: Acetaminophen TAB* 325 MG PO PRN (07:11)
[2019-12-10] MEDS ORDERED: NS 0.9% 1000 ML** 1,000 ML IV SCH (07:15)
[2019-12-10] MEDS: Digoxin IV* 0.5 MG/2 ML AMP (0.25 MG/ML) IV SLOW PU SCH (07:58)
[2019-12-10] MEDS: Amiodarone TAB* 400 MG G TUBE SCH ×2 (07:58→20:12)
[2019-12-10 08:33] LABS: Magnesium 2.2 mg/dL (1.9-2.7); Phosphorus 2.6 mg/dL (2.5-5.0)
[2019-12-10] MEDS: Cefepime 1 GM in Dextrose(*) 1 GM/50 ML BAG IV SCH ×2 (09:43→22:15)
[2019-12-10] MEDS: Metoprolol Tartrate TAB* 25 MG PO SCH ×2 (10:53→20:11)
--- NOTE | 2019-12-10 10:59 | PN ---
Date of Service: 12/10/19 Critical Care Services: No new events Vital Signs: Temp Pulse Resp BP SpO2 FiO2 38.6 C 110 30 120/78 94 30 12/10/19 08:00 12/10/19 10:01 12/10/19 10:00 12/10/19 10:01 12/10/19 10:01 12/10 08:00 Physical Exam: Gen: unresposnive HEENT: NCAT, PERRL Lungs: coarse entry Cardiac: S1S2 irreg tachy Abdomen: soft, ND, +BS Extremities: no edema Neuro: unresponsive Fluid Balance (Past 24 Hours): I= O= Net Intake & Output 12/08/19 12/09/19 12/10/19 12/11/19 06:59 06:59 06:59 06:59 Intake Total 495.7 1974 2646 931 Output Total 2678 2922 1950 217 Balance -2182.3 -948 696 714 Weight 98.7 kg 98.2 kg 98 kg Intake: IV Fluids 117.9 921 186 ABX - CEFEPIME 50 ABX - VANCOMYCIN 580 67 Calcium gluconate 30 Kepra 39 NS (0.9%) 117.9 341 IVPB 600 ABX - CEFEPIME 58 ABX - VANCOMYCIN 302 Calcium gluconate 129 Kepra 111 Medicated IV 377.8 CC - Amiodarone 79.8 CC - Dexmedetomidine/ 14 Precedex CC - Propofol/Diprivan 284 Oral 0 0 0 Tube Feeding 650 1660 831 Tube Feeding Flush Amount 0 200 100 Packed Cells 403 Output: Urine 2678 2922 860 217 Wood 1090 Tube Feeding Residual 0 Amount Wasted Other: Estimated Void Large Medium Date of Last Bowel 12/08/19 Movement # Bowel Movements 1 Estimated Stool Amount Medium # Voids 1 1 Labs: Laboratory Results - last 24 hr 12/08/19 12/09/19 12/09/19 23:00 00:50 13:12 WBC RBC Hgb Hct MCV MCH MCHC RDW Plt Count MPV Neut % (Auto) Lymph % (Auto) [place] % (Auto) Eos % (Auto) Baso % (Auto) Absolute Neuts (auto) Absolute Lymphs (auto) Absolute Monos (auto) Absolute Eos (auto) Absolute Basos (auto) Absolute Nucleated RBC Immature Gran % Neutrophils % Band Neutrophils % Lymphocytes % Monocytes % Nucleated RBC % Toxic Granulation Dohle Bodies Normal RBC Morphology Polychromasia Anisocytosis Macrocytosis Sodium Potassium Chloride Carbon Dioxide Anion Gap BUN Creatinine Est GFR ([facility] Amer) Est GFR (Non- Amer) BUN/Creatinine Ratio Glucose POC Glucose (mg/dL) 115 H 164 H Calcium Phosphorus Magnesium Digoxin 1.2 12/09/19 12/09/19 12/10/19 13:13 15:52 05:19 WBC RBC Hgb Hct MCV MCH MCHC RDW Plt Count MPV Neut % (Auto) Lymph % (Auto) [place] % (Auto) Eos % (Auto) Baso % (Auto) Absolute Neuts (auto) Absolute Lymphs (auto) Absolute Monos (auto) Absolute Eos (auto) Absolute Basos (auto) Absolute Nucleated RBC Immature Gran % Neutrophils % Band Neutrophils % Lymphocytes % Monocytes % Nucleated RBC % Toxic Granulation Dohle Bodies Normal RBC Morphology Polychromasia Anisocytosis Macrocytosis Sodium 142 Potassium 3.8 Chloride 107 Carbon Dioxide 28 Anion Gap 7 BUN 37 H Creatinine 0.91 Est GFR ([facility] Amer) 99.4 Est GFR (Non- Amer) 82.1 BUN/Creatinine Ratio 40.7 H Glucose 134 H POC Glucose (mg/dL) 122 H 141 H Calcium 8.3 L Phosphorus 2.6 Magnesium 2.2 Digoxin Cancelled 12/10/19 12/10/19 05:19 06:13 WBC 5.8 RBC 2.89 L Hgb 9.2 L Hct 28 L MCV 95 H MCH 32 H MCHC 34 RDW 21 H Plt Count 112 L MPV 8.5 Neut % (Auto) 92.3 Lymph % (Auto) 2.8 [place] % (Auto) 4.4 Eos % (Auto) 0.4 Baso % (Auto) 0.1 Absolute Neuts (auto) 5.4 Absolute Lymphs (auto) 0.2 L Absolute Monos (auto) 0.3 Absolute Eos (auto) 0.0 Absolute Basos (auto) 0.0 Absolute Nucleated RBC 0.0 Immature Gran % 14.0 H Neutrophils % 79.0 Band Neutrophils % 14.0 H Lymphocytes % 3.0 Monocytes % 4.0 Nucleated RBC % 0.1 Toxic Granulation 1+ Dohle Bodies Present Normal RBC Morphology Not Reportable Polychromasia 1+ Anisocytosis 2+ Macrocytosis 1+ Sodium Potassium Chloride Carbon Dioxide Anion Gap BUN Creatinine Est GFR ( Amer) Est GFR (Non-Af Amer) BUN/Creatinine Ratio Glucose POC Glucose (mg/dL) Calcium Phosphorus Magnesium Digoxin 1.4 Studies: CXR pending Nutrition: Juan Daniel TF Impression: S/P cardiac arrest with ROSC / remains encephalopathic with MRI not defining significant ischemia 48H post-arrest Plan: Cardiac Arrest - no further episodes. Amio and BB and Dig. Appreciate Cardiology 's ongoing support. Using Digoxin for enhanced rate control. Negative balance and no more edema on exam, DC lasix 12/09. MRI 12/07 without any dramatic findings so I remain hopeful he will wake but it is now a few days and he remains encephalopathic. EEG shows some epileptogenic foci without status. Keppra started yesterday. Exam today with unresponsiveness and fever for which surface cooling has been reintroduced. Family aware that there is still hope but that this hope fades with every day that he does not neurologically improve. Neurology involved. Bronchitis vs Pneumonia - sputum growing MSSA, Vanco DC'd. Cefepime Day#2 after 4 days ceftriaxone. No leukocytosis but significant bandemia now improving from 25 to 14 today and febrile with oral and ETT secretions. Have not empirically dosed quinolone or macrolide in this patient with recurrent VT, polymorphic VT. Central fevers in differntial but secretions and bands support actual infection. CXR today. Tolerating TF, GI/DVT prophylaxis. D/W at bedside. Critical Care Time: 35 minutes
[2019-12-10] MEDS ORDERED: Potassium Chloride* LIQUID 20 MEQ/15 ML UDC PO ONE (11:49)
[2019-12-10] MEDS ORDERED: levETIRAcetam 500 MG IVPREMIX* 500 MG/100 ML BAG IV SCH (12:00)
[2019-12-10] MEDS ORDERED: Digoxin IV* 0.5 MG/2 ML AMP (0.25 MG/ML) IV SLOW PU SCH (12:00)
[2019-12-10] MEDS: Acetaminophen ADULT LIQ* 650 MG/20.3 ML UDC PO PRN (14:24)
--- NOTE | 2019-12-10 14:42 | CONS ---
NEUROLOGY CONSULTATION: DATE OF CONSULT: 12/10/19 CONSULTING PHYSICIAN: Dr. John. REASON FOR CONSULT: Suspect anoxic brain injury. CHIEF COMPLAINT: The patient is intubated. The history was obtained by the patient's Mrs. Pan who was at bedside. HISTORY OF PRESENT ILLNESS: Mr. Pan is a 69-year-old man who has a history of atrial fibrillation, severe systolic heart failure, who presented to [facility] on 12/05/19 after a witnessed cardiac arrest. According to Mrs. Pan, the patient was in normal state of health on Wednesday morning and afternoon. He was sitting in a recliner and last seen normal at 5:15. At approximately 10 minutes to 6 p.m. on 12/05/19, the patient was slumped over towards the right side breathing heavily and gagging. He was unresponsive. She immediately contacted EMS. She dragged him off the recliner on to the floor and then put him on his back before she started CPR. She was unable to give him any breaths but was doing CPR immediately after he was discovered. It was not clear when the incident occurred, but he was found at approximately 5: 50 p.m. A few rounds of CPR, it took EMS approximately 15 to 20 minutes to arrive. The patient was found in VFib. The patient was shocked once and returned to spontaneous circulation. He was then transferred to [facility] for further evaluation. The patient has been off sedation since 48 hours according to staff. He was on fentanyl and propofol. Currently he is not on any sedation. The patient was started on levetiracetam yesterday after the EEG showed evidence of GPEDs. The patient was started also on cefepime last night due to suspected infection given that he was febrile yesterday with the highest temp of 101.8. The source of infection was possible pneumonia. He has Staph aureus in the sputum. The patient had an MRI of the brain completed on 12/07/19 that showed few scattered nonspecific white matter changes with a right mastoid effusion. There was no areas of restricted effusion or T2 hyperintensity to suspect anoxic brain injury. He had a transthoracic echo on 12/08/19 that showed an ejection fraction of 15% to 20%. The patient did undergo therapeutic hypothermia. PAST MEDICAL HISTORY: Atrial fibrillation, for which he is not currently on anticoagulation therapy. The patient was not taking anticoagulation therapy at home. The lack of anticoagulation therapy is clear. Prostate cancer, metastatic to the bone; hypertension; dyslipidemia; severe systolic heart failure. PAST SURGICAL HISTORY: Hernia repair, TURP, appendectomy, sinus surgery. HOME MEDICATIONS: 1. Metoprolol XL 25 mg p.o. b.i.d. 2. Lasix 20 mg p.o. daily. 3. Fentanyl. 4. Xtandi 160 mg p.o. daily. 5. [place] 7.5/325 mg every 6 hours as needed. 6. Digoxin 0.125 mg p.o. daily. 7. Guaifenesin 1200 mg p.o. b.i.d. p.r.n. 8. Gaviscon 1 chew p.o. every 6 hours. 9. Vitamin B12 of 1000 mcg p.o. daily. 10. Candesartan 32 mg p.o. at bedtime. 11. Protonix 40 mg p.o. daily. ALLERGIES: No known drug allergies. FAMILY HISTORY: No history of stroke or seizures. SOCIAL HISTORY: The patient is a former smoker but quit 40 plus years ago. He drinks 1 alcoholic beverage a day. He is . He lives with his spouse. REVIEW OF SYSTEMS: Unable to obtain due to the patient's intubation. PHYSICAL EXAM: Vitals: Temperature of 101.5, pulse of 136, respiratory rate of 32, oxygen saturation of 98%, blood pressure of 94/74. General: Ill- appearing man who appears older than stated age. Head: Atraumatic, normocephalic without any obvious abnormality. There is a subtle evidence of carpet pelayo on the forehead that were reported by the patient's spouse. Eyes: Conjunctivae/corneas are clear. Cardiac: Sinus tachycardia with a mild holosystolic 2/6 murmur that is nonradiating. Chest: Clear to auscultation bilaterally. Extremities: No hammertoes or high arches. Skin: Slight skin irritation on the forehead. Psych: Deferred. Neurological Examination: Mental status: The patient is intubated. He is off sedation for approximately 48 hours. Precedex was discontinued on 12/08/19 at 10:53. The patient's last Ativan injection was had at approximately 11:11. Cranial nerves: Pupils are equal, round, and reactive to light. Corneal reflex are present. Gag reflex present. The patient withdrew to nasal stimulation. Motor examination: Flaccid throughout, but grimaces to distal noxious stimuli in all 4 extremities. Reflexes 1+ throughout with 0 at the ankles, mute plantar responses. Coordination, gait were deferred. ASSESSMENT: Mr. Kameron Pan is a 69-year-old man with history of severe systolic heart failure with ejection fraction of 15% to 20% who also has a history of atrial fibrillation, not on anticoagulation therapy, who had a cardiopulmonary ventricular fibrillation arrest. His downtime duration is unclear, but could be as long as 30 minutes since he was last known well at 1715 and was found at approximately 1750. He also had an ischemic time ( CPR time) of approximately 15 minutes. The patient has no evidence of anoxic brain injury on examination. 1. 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 2. Abnormal EEG with generalized periodic epileptiform discharges and burst suppression pattern. 3. Suspect pneumonia, on cefepime therapy since yesterday. RECOMMENDATIONS: Continue supportive care. Neuro check per unit protocol. Please minimize cefepime use in a patient with risk of having nonconvulsive status epilepticus. The GPED pattern suggests some degree of anoxic brain injury. The fact that he did not clinically improve with levetiracetam or Ativan yesterday suggests against nonconvulsive seizures. However, I do recommend repeating an EEG Wednesday. Reduce the dose of levetiracetam to 500 mg twice daily with the consideration of weaning him off levetiracetam within 3 days if he does not have any clinical seizures and his EEG is stable ( no epileptiform discharges). The patient will need time to allow recovery. Please check a neuron specific enolase. He does not meet criteria for brain . The patient did undergo therapeutic hypothermia, therefore, prognostication should be delayed for at least 3 to 5 days since he was rewarmed. The patient was cooled and hit target cooling temperature at 6:30 on 12/06/19, so he is currently 3 days after he was rewarmed. The worsening in his mentation overnight could be related to infection, cefepime therapy, or levetiracetam. Dr. Flores will be covering the neurology service starting tomorrow. Please contact us for any questions or concerns. [id number]/[facility] #: [id number] [email or web address]
[2019-12-10] MEDS ORDERED: [UNRECOGNIZED DRUG - OTHER] PO SCH (16:00)
[2019-12-10] MEDS: levETIRAcetam 500 MG IVPREMIX* 500 MG/100 ML BAG IV SCH (17:41)
[2019-12-10] MEDS: Pantoprazole IV* 40 MG IV SCH (20:12)
[2019-12-11] MEDS: CHLORHEXADINE (PERIDEX) VENT ORAL CARE TOPICAL SCH ×6 (00:04→22:14)
[2019-12-11] MEDS ORDERED: Diltiazem IV push/loading dose 5 MG/ML 5 ML vial (25 mg) IV SLOW PU ONE ×2 (01:05→05:00)
[2019-12-11] MEDS: Heparin VIAL(*) 5000 UNITS/ML VIAL (FIVE THOUSAND) SUBCUT SCH ×3 (06:05→21:40)
[2019-12-11] MEDS: levETIRAcetam 500 MG IVPREMIX* 500 MG/100 ML BAG IV SCH ×2 (06:05→18:10)
[2019-12-11 06:27] LABS: Hematocrit 30 % (42-52); Hemoglobin 9.6 g/dL (14.0-18.0); Mean Corpuscular HGB Conc 32 g/dL (31-36); Mean Corpuscular Hemoglobin 31 pg (27-31); Mean Corpuscular Volume 99 fL (80-94); Mean Platelet Volume 8.5 fL (7.4-10.4); Platelet Count 126 10^3/uL (150-450); Red Blood Count 3.04 10^6 /uL (4.18-5.48); Red Cell Distribution Width 22 % (10-15); White Blood Count 8.9 10^3/uL (3.5-10.8)
[2019-12-11 06:42] LABS: Albumin 3.2 g/dL (3.2-5.2); BUN/Creatinine Ratio 40.8 (8-20); Calcium 8.6 mg/dL (8.6-10.3); EGFR African American 122.3 (>60); EGFR Non-African American 101.1 (>60); Globulin 3.2 g/dL (2-4); Magnesium 2.4 mg/dL (1.9-2.7); Phosphorus 2.7 mg/dL (2.5-5.0); Potassium 4.3 mmol/L (3.5-5.0); Total Bilirubin 0.8 mg/dL (0.2-1.0); Total Protein 6.4 g/dL (6.4-8.9)
[2019-12-11 07:18] LABS: Polychromasia 1+
[2019-12-11 07:20] LABS: ABS Eosinophils 0.1 10^3/ul (0-0.6); ABS Lymphocytes 0.2 10^3/ul (1.0-4.8); ABS Monocytes 0.5 10^3/ul (0-0.8); ABS Neutrophils 8.1 10^3/ul (1.5-7.7); Eosinophil % 0.6 %; Lymphocyte % 2.5 %
[2019-12-11] MEDS: Digoxin IV* 0.5 MG/2 ML AMP (0.25 MG/ML) IV SLOW PU SCH (08:09)
[2019-12-11] MEDS: Amiodarone TAB* 400 MG G TUBE SCH ×2 (08:09→21:53)
[2019-12-11] MEDS: Metoprolol Tartrate TAB* 25 MG PO SCH (08:09)
--- NOTE | 2019-12-11 08:26 | PN ---
Subjective Date of Service: 12/11/19 Length of Stay: 6 Days Interval History: Status post cardiac arrest, cooling with rewarming, goal temp on 12.06.19. Has been off of sedation for days without clinical improvement. Nurse reports gag with suctioning and sluggish pupil response. No spontaneous movement. The reports that during suctioning yesterday, he opened his eyes for a few minutes but otherwise has not responded to her. Fevers with concern for pneumonia, now on Cefepime. On prophylactic Keppra with initial concern for the possibility of subclinical status. No overt seizure activity. No sedation given overnight. Family History: Unchanged from Admission Social History: Unchanged from Admission Past Medical History: Unchanged from Admission Objective Active Medications: Acetaminophen (Tylenol Adult Liq*) 650 mg PO Q4H PRN PRN Reason: PAIN - MILD/ TEMP>101 Last Admin: 12/10/19 14:24 Dose: 650 mg Albuterol/Ipratropium (Duoneb (Albuterol 2.5 Mg/Ipratropium 0.5 Mg)) 1 neb INH [id number] AWAKE PRN PRN Reason: SOB/WHEEZING Amiodarone HCl (Cordarone Tab*) 400 mg G TUBE BID [facility] Stop: 12/21/19 08:59 Last Admin: 12/11/19 08:09 Dose: 400 mg Chlorhexidine Gluconate (Peridex Mouth Wash 0.12%*) 15 ml TOPICAL Q4H [facility] Last Admin: 12/11/19 08:09 Dose: 15 ml Digoxin (Digoxin Iv*) 0.125 mg IV SLOW PU DAILY [facility] Last Admin: 12/11/19 08:09 Dose: 0.125 mg Heparin Sodium (Porcine) (Heparin Vial(*)) 5,000 units SUBCUT Q8HR [facility] Last Admin: 12/11/19 06:05 Dose: 5,000 units Cefepime HCl (Maxipime 1 Gm In Dextrose Duplex (*)) 1 gm in 50 mls @ 100 mls/ hr IV Q12H [facility] Last Admin: 12/10/19 22:15 Dose: 100 mls/hr Levetiracetam (Keppra Iv Premix*) 500 mg in 100 mls @ 400 mls/hr IV Q12H [facility] Last Admin: 12/11/19 06:05 Dose: 400 mls/hr Metoprolol Tartrate (Lopressor Tab*) 25 mg PO BID [facility] Last Admin: 12/11/19 08:09 Dose: 25 mg Miscellaneous (Ativan Pyxis Jacobsen) 1 ea N/A .ATIVAN IV JACOBSEN PRN PRN Reason: PYXIS JACOBSEN Pantoprazole Sodium (Protonix Iv*) 40 mg IV Q24H [facility] Last Admin: 12/10/19 20:12 Dose: 40 mg Vital Signs 12/10/19 12/10/19 12/10/19 08:46 09:00 09:01 Temperature Pulse Rate 100 110 118 Respiratory 34 Rate Blood Pressure 104/77 146/64 (mmHg) O2 Sat by Pulse 90 93 94 Oximetry 12/10/19 12/10/19 12/10/19 09:31 10:00 10:01 Temperature Pulse Rate 118 107 110 Respiratory 30 Rate Blood Pressure 111/82 120/78 (mmHg) O2 Sat by Pulse 94 93 94 Oximetry 12/10/19 12/10/19 12/10/19 10:30 11:00 11:31 Temperature Pulse Rate 120 101 113 Respiratory 32 Rate Blood Pressure 117/83 94/74 125/89 (mmHg) O2 Sat by Pulse 95 98 99 Oximetry 12/10/19 12/10/19 12/10/19 12:00 12:27 12:30 Temperature Pulse Rate 109 114 107 Respiratory 25 Rate Blood Pressure 127/69 122/72 (mmHg) O2 Sat by Pulse 96 97 Oximetry 12/10/19 12/10/19 12/10/19 13:00 13:01 13:30 Temperature Pulse Rate 129 134 131 Respiratory 35 Rate Blood Pressure 145/96 138/105 (mmHg) O2 Sat by Pulse 98 98 97 Oximetry 12/10/19 12/10/19 12/10/19 14:00 14:30 15:00 Temperature Pulse Rate 123 120 133 Respiratory 29 25 Rate Blood Pressure 143/81 146/77 (mmHg) O2 Sat by Pulse 95 94 93 Oximetry 12/10/19 12/10/19 12/10/19 15:30 16:00 16:18 Temperature 96.3 F Pulse Rate 104 89 Respiratory 28 Rate Blood Pressure 125/86 119/70 (mmHg) O2 Sat by Pulse 93 94 Oximetry 12/10/19 12/10/19 12/10/19 16:32 17:00 17:12 Temperature Pulse Rate 95 125 86 Respiratory 16 Rate Blood Pressure 126/79 119/86 (mmHg) O2 Sat by Pulse 96 89 96 Oximetry 12/10/19 12/10/19 12/10/19 17:30 18:00 18:30 Temperature Pulse Rate 86 108 124 Respiratory 28 Rate Blood Pressure 114/82 124/70 130/76 (mmHg) O2 Sat by Pulse 97 98 98 Oximetry 12/10/19 12/10/19 12/10/19 19:00 19:30 20:00 Temperature 99.9 F Pulse Rate 112 121 124 Respiratory 33 30 Rate Blood Pressure 132/86 133/74 77/68 (mmHg) O2 Sat by Pulse 98 98 97 Oximetry 12/10/19 12/10/19 12/10/19 20:02 20:30 21:00 Temperature Pulse Rate 127 120 106 Respiratory 34 Rate Blood Pressure 120/87 125/70 133/76 (mmHg) O2 Sat by Pulse 97 97 97 Oximetry 12/10/19 12/10/19 12/10/19 21:30 22:00 22:30 Temperature Pulse Rate 123 112 132 Respiratory 28 Rate Blood Pressure 135/86 134/69 112/76 (mmHg) O2 Sat by Pulse 97 98 98 Oximetry 12/10/19 12/10/19 12/10/19 23:00 23:13 23:30 Temperature Pulse Rate 141 130 148 Respiratory 25 Rate Blood Pressure 134/75 131/77 (mmHg) O2 Sat by Pulse 99 95 100 Oximetry 12/11/19 12/11/19 12/11/19 00:00 00:30 01:00 Temperature 100.9 F Pulse Rate 141 Respiratory 32 30 Rate Blood Pressure 122/73 116/89 120/75 (mmHg) O2 Sat by Pulse 96 Oximetry 12/11/19 12/11/19 12/11/19 01:30 02:00 02:30 Temperature Pulse Rate 93 128 Respiratory 29 Rate Blood Pressure 132/78 137/74 123/90 (mmHg) O2 Sat by Pulse 97 90 Oximetry 12/11/19 12/11/19 12/11/19 03:00 03:31 04:00 Temperature 100.0 F Pulse Rate 113 118 124 Respiratory 28 27 Rate Blood Pressure 145/81 147/74 113/79 (mmHg) O2 Sat by Pulse 99 98 99 Oximetry 12/11/19 12/11/19 12/11/19 04:53 05:00 05:01 Temperature Pulse Rate 98 101 98 Respiratory 28 Rate Blood Pressure 140/91 102/61 (mmHg) O2 Sat by Pulse 97 97 97 Oximetry 12/11/19 12/11/19 12/11/19 05:30 06:00 06:15 Temperature Pulse Rate 100 103 94 Respiratory 22 Rate Blood Pressure 133/75 126/59 (mmHg) O2 Sat by Pulse 97 95 96 Oximetry 12/11/19 12/11/19 12/11/19 06:31 07:00 07:01 Temperature Pulse Rate 90 103 Respiratory 26 Rate Blood Pressure 114/52 133/60 (mmHg) O2 Sat by Pulse 93 95 Oximetry 12/11/19 12/11/19 07:13 07:31 Temperature 97.6 F Pulse Rate Respiratory Rate Blood Pressure 114/89 (mmHg) O2 Sat by Pulse Oximetry Intake and Output Last 24 Hours 12/09/19 12/10/19 12/11/19 12/12/19 06:59 06:59 06:59 06:59 Intake Total 1974 2646 3096 Output Total 2922 1950 1061 20 Balance -035 862 9138 - Weight 216 lb 7.903 oz 216 lb 0.848 oz 215 lb 9.793 oz Intake: IV Fluids 921 186 979 ABX - CEFEPIME 50 ABX - VANCOMYCIN 580 67 Calcium gluconate 30 Kepra 39 NS (0.9%) 341 979 IVPB 600 396 ABX - CEFEPIME 58 126 ABX - VANCOMYCIN 302 Calcium gluconate 129 Kepra 111 270 Oral 0 0 Tube Feeding 650 1660 1261 Tube Feeding Flush Amount 0 200 460 Packed Cells 403 Output: Urine 2922 860 1061 20 Wood 1090 Tube Feeding Residual 0 0 Amount Wasted Other: Estimated Void Large Medium Date of Last Bowel 12/08/19 Movement # Bowel Movements 1 Estimated Stool Amount Medium # Voids 1 1 Oxygen Devices in Use Now: Endotracheal Tube, Mechanical Ventilator Neurology Exam: General: Well nourished, well developed, lying in hospital bed, intubated Distant breath sounds bilaterally, no coarse sounds Tachycardic, irregular rhythm, 2/6 TONY Abdomen obese Skin is cool with no cyanosis Neurological Findings: Unresponsive to loud or painful stimuli. Eyes closed, no spontaneous opening. Does not furrow brow with pain No spontaneous movement to voice, no withdraw to pain in all extremities but nurse reports he w/d arm when she flushed IV Pupils are 3-->2 mm sluggish but equal Negative Corneals today. Sluggish dolls bilaterally, no disconjugate gaze Gags with deep suction Reflexes are 1 + throughout with absent ankles and no plantar response Result Diagrams: 12/11/19 06:10 12/11/19 06:10 Additional Lab and Data: Lab Results 12/05/19 12/05/19 12/05/19 Range/Units 18:20 18:20 18:20 WBC 5.6 (3.5-10.8) 10^3/uL RBC 2.82 L (4.18-5.48) 10^6 /uL Hgb 9.0 L (14.0-18.0) g/dL Hct 27 L (42-52) % MCV 97 H (80-94) fL MCH 32 H (27-31) pg MCHC 33 (31-36) g/dL RDW 22 H (10-15) % Plt Count 180 (150-450) 10^3/uL MPV 7.9 (7.4-10.4) fL Neut % (Auto) 60.5 % Lymph % (Auto) 31.7 % Metcalfe % (Auto) 6.3 % Eos % (Auto) 0.8 % Baso % (Auto) 0.7 % Absolute Neuts (auto) 3.4 (1.5-7.7) 10^3/ul Absolute Lymphs (auto) 1.8 (1.0-4.8) 10^3/ul Absolute Monos (auto) 0.4 (0-0.8) 10^3/ul Absolute Eos (auto) 0.0 (0-0.6) 10^3/ul Absolute Basos (auto) 0.0 (0-0.2) 10^3/ul Absolute Nucleated RBC 0.0 10^3/ul Nucleated RBC % 0.1 Polychromasia 1+ Anisocytosis 2+ INR (Anticoag Therapy) (0.82-1.09) Patient Temperature ABG pH (7.35-7.45) ABG pH (Temp Correct) ABG pCO2 (35-45) mmHg ABG pCO2 (Temp Corrct ABG pO2 (80-100) mmHg ABG pO2 (Temp Correct ABG HCO3 (19-31) mmol/L ABG O2 Saturation (94.0-98.0) % ABG Base Excess (-2.0-2.0) mmol/L Respiration Rate O2 Delivery Device Ventilator Type Vent Mode FiO2 Inspiratory Time PEEP Pressure Support Pressure Control EPAP IPAP BiPAP Sodium 139 (135-145) mmol/L Potassium 3.2 L (3.5-5.0) mmol/L Chloride 105 (101-111) mmol/L Carbon Dioxide 18 L (22-32) mmol/L Anion Gap 16 H (2-11) mmol/L BUN 9 (6-24) mg/dL Creatinine 0.91 (0.67-1.17) mg/dL Est GFR ( Amer) 99.4 (>60) Est GFR (Non-Af Amer) 82.1 (>60) BUN/Creatinine Ratio 9.9 (8-20) Glucose 262 H (70-100) mg/dL Lactic Acid 7.1 H* (0.5-2.0) mmol/L Calcium 8.0 L (8.6-10.3) mg/dL Magnesium 1.4 L (1.9-2.7) mg/dL Total Bilirubin 0.60 (0.2-1.0) mg/dL AST 102 H (13-39) U/L ALT 42 (7-52) U/L Alkaline Phosphatase 704 H (34-104) U/L Troponin I 0.06 H* (<0.03) ng/mL B-Natriuretic Peptide (<=100) pg/mL Total Protein 5.7 L (6.4-8.9) g/dL Albumin 3.5 (3.2-5.2) g/dL Globulin 2.2 (2-4) g/dL Albumin/Globulin Ratio 1.6 (1-3) TSH 7.42 H (0.34-5.60) mcIU/mL Free T4 0.93 (0.61-1.12) ng/dL Urine Color Urine Appearance Urine pH (5-9) Ur Specific Stanley (1.010-1.030) Urine Protein (Negative) Urine Ketones (Negative) Urine Blood (Negative) Urine Nitrate (Negative) Urine Bilirubin (Negative) Urine Urobilinogen (Negative) Ur Leukocyte Esterase (Negative) Urine WBC (Auto) (Absent) Urine RBC (Auto) (Absent) Urine Bacteria (Absent) Urine Glucose (Negative) Urine Ascorbic Acid Digoxin 0.6 L (0.8-2.0) ng/ml 12/05/19 12/05/19 12/05/19 Range/Units 18:20 19:12 19:30 WBC (3.5-10.8) 10^3/uL RBC (4.18-5.48) 10^6 /uL Hgb (14.0-18.0) g/dL Hct (42-52) % MCV (80-94) fL MCH (27-31) pg MCHC (31-36) g/dL RDW (10-15) % Plt Count (150-450) 10^3/uL MPV (7.4-10.4) fL Neut % (Auto) % Lymph % (Auto) % [place]cal[place] % (Auto) % Eos % (Auto) % Baso % (Auto) % Absolute Neuts (auto) (1.5-7.7) 10^3/ul Absolute Lymphs (auto) (1.0-4.8) 10^3/ul Absolute Monos (auto) (0-0.8) 10^3/ul Absolute Eos (auto) (0-0.6) 10^3/ul Absolute Basos (auto) (0-0.2) 10^3/ul Absolute Nucleated RBC 10^3/ul Nucleated RBC % Polychromasia Anisocytosis INR (Anticoag Therapy) (0.82-1.09) Patient Temperature Not Reportable ABG pH 7.32 L (7.35-7.45) ABG pH (Temp Correct) Not Reportable ABG pCO2 39 (35-45) mmHg ABG pCO2 (Temp Corrct Not Reportable ABG pO2 348 H (80-100) mmHg ABG pO2 (Temp Correct Not Reportable ABG HCO3 20.6 (19-31) mmol/L ABG O2 Saturation 100.0 H (94.0-98.0) % ABG Base Excess -5.6 L (-2.0-2.0) mmol/L Respiration Rate 16 O2 Delivery Device Vent Ventilator Type 500 Vent Mode Cmv FiO2 100 Inspiratory Time Not Reportable PEEP 5 Pressure Support Not Reportable Pressure Control Not Reportable EPAP Not Reportable IPAP Not Reportable BiPAP Not Reportable Sodium (135-145) mmol/L Potassium (3.5-5.0) mmol/L Chloride (101-111) mmol/L Carbon Dioxide (22-32) mmol/L Anion Gap (2-11) mmol/L BUN (6-24) mg/dL Creatinine (0.67-1.17) mg/dL Est GFR ( Amer) (>60) Est GFR (Non-Af Amer) (>60) BUN/Creatinine Ratio (8-20) Glucose (70-100) mg/dL Lactic Acid (0.5-2.0) mmol/L Calcium (8.6-10.3) mg/dL Magnesium (1.9-2.7) mg/dL Total Bilirubin (0.2-1.0) mg/dL AST (13-39) U/L ALT (7-52) U/L Alkaline Phosphatase (34-104) U/L Troponin I (<0.03) ng/mL B-Natriuretic Peptide 405 H (<=100) pg/mL Total Protein (6.4-8.9) g/dL Albumin (3.2-5.2) g/dL Globulin (2-4) g/dL Albumin/Globulin Ratio (1-3) TSH (0.34-5.60) mcIU/mL Free T4 (0.61-1.12) ng/dL Urine Color Yellow Urine Appearance Clear Urine pH 6.0 (5-9) Ur Specific Stanley 1.016 (1.010-1.030) Urine Protein 3+(>=500 mg/dl) A (Negative) Urine Ketones Negative (Negative) Urine Blood 1+ A (Negative) Urine Nitrate Negative (Negative) Urine Bilirubin Negative (Negative) Urine Urobilinogen Negative (Negative) Ur Leukocyte Esterase Negative (Negative) Urine WBC (Auto) 2+(11-20/hpf) A (Absent) Urine RBC (Auto) 1+(3-5/hpf) A (Absent) Urine Bacteria Absent (Absent) Urine Glucose 1+(50 mg/dl) A (Negative) Urine Ascorbic Acid Not Reportable Digoxin (0.8-2.0) ng/ml 12/05/19 Range/Units 19:54 WBC (3.5-10.8) 10^3/uL RBC (4.18-5.48) 10^6 /uL Hgb (14.0-18.0) g/dL Hct (42-52) % MCV (80-94) fL MCH (27-31) pg MCHC (31-36) g/dL RDW (10-15) % Plt Count (150-450) 10^3/uL MPV (7.4-10.4) fL Neut % (Auto) % Lymph % (Auto) % Metcalfe % (Auto) % Eos % (Auto) % Baso % (Auto) % Absolute Neuts (auto) (1.5-7.7) 10^3/ul Absolute Lymphs (auto) (1.0-4.8) 10^3/ul Absolute Monos (auto) (0-0.8) 10^3/ul Absolute Eos (auto) (0-0.6) 10^3/ul Absolute Basos (auto) (0-0.2) 10^3/ul Absolute Nucleated RBC 10^3/ul Nucleated RBC % Polychromasia Anisocytosis INR (Anticoag Therapy) 1.24 H (0.82-1.09) Patient Temperature ABG pH (7.35-7.45) ABG pH (Temp Correct) ABG pCO2 (35-45) mmHg ABG pCO2 (Temp Corrct ABG pO2 (80-100) mmHg ABG pO2 (Temp Correct ABG HCO3 (19-31) mmol/L ABG O2 Saturation (94.0-98.0) % ABG Base Excess (-2.0-2.0) mmol/L Respiration Rate O2 Delivery Device Ventilator Type Vent Mode FiO2 Inspiratory Time PEEP Pressure Support Pressure Control EPAP IPAP BiPAP Sodium (135-145) mmol/L Potassium (3.5-5.0) mmol/L Chloride (101-111) mmol/L Carbon Dioxide (22-32) mmol/L Anion Gap (2-11) mmol/L BUN (6-24) mg/dL Creatinine (0.67-1.17) mg/dL Est GFR ( Amer) (>60) Est GFR (Non-Af Amer) (>60) BUN/Creatinine Ratio (8-20) Glucose (70-100) mg/dL Lactic Acid (0.5-2.0) mmol/L Calcium (8.6-10.3) mg/dL Magnesium (1.9-2.7) mg/dL Total Bilirubin (0.2-1.0) mg/dL AST (13-39) U/L ALT (7-52) U/L Alkaline Phosphatase (34-104) U/L Troponin I (<0.03) ng/mL B-Natriuretic Peptide (<=100) pg/mL Total Protein (6.4-8.9) g/dL Albumin (3.2-5.2) g/dL Globulin (2-4) g/dL Albumin/Globulin Ratio (1-3) TSH (0.34-5.60) mcIU/mL Free T4 (0.61-1.12) ng/dL Urine Color Urine Appearance Urine pH (5-9) Ur Specific Stanley (1.010-1.030) Urine Protein (Negative) Urine Ketones (Negative) Urine Blood (Negative) Urine Nitrate (Negative) Urine Bilirubin (Negative) Urine Urobilinogen (Negative) Ur Leukocyte Esterase (Negative) Urine WBC (Auto) (Absent) Urine RBC (Auto) (Absent) Urine Bacteria (Absent) Urine Glucose (Negative) Urine Ascorbic Acid Digoxin (0.8-2.0) ng/ml Microbiology and Other Data: Microbiology 12/08/19 04:17 Aerobic Blood Culture - Preliminary Blood Venous No Growth Day 3 Anaerobic Blood Culture - Preliminary No Growth Day 3 12/08/19 04:19 Urine Culture - Final Urine 12/07/19 01:15 Gram Stain - Final Sputum Trach Sputum Culture - Final Staphylococcus Aureus Normal Fatuma 12/05/19 19:30 Urine Culture - Final Urine No Growth (<1,000 CFU/mL) 12/05/19 23:40 Nasal Screen MRSA (PCR) - Final Nasal Mrsa Not Detected Assessment/Plan 69 year old status post cardiac arrest with CPR, cooling, now day 4 post warming. Unclear down time. Multiple episodes of VT. Now ICU day 7. Suspected hypoxic/ischemic/metabolic encephalopathy with ilkely underlying anoxic brain injury. EEG shows epileptiform activity and burst-suppression pattern but no overt seizures. He was loaded on Keppra for the prophylactic coverage, no overt seizures but concern for sub-clinical status. Cefepime was started several days ago after 4 days of ceftriaxone. for suspected pneumonia. He has been off of sedation for days with no real clinical improvement. He does have some brainstem reflexes so does not meet criteria for brain 1. Continue supportive care. Now off sedation. Cardiology following. Poor EF 2. Will repeat EEG today. Patient now on Cefepime which is known to lower seizure threshold. I spoke with ICU attending about the possibility of another antibiotic if possible. Will continue prophylactic Keppra for now at 500mg BID. Suspicion for sub-clinical status is low. 3. Fevers: On antibiotic. Central fever vs. burgeoning infection. Continue cooling as necessary 4. I updated family on prognosis. His understand that with each day with no significant clinical improvement, the prognosis worsens. Neurology will continue to follow.
--- NOTE | 2019-12-11 09:50 | PN ---
Date of Service: 12/11/19 Critical Care Services: Remains intubated. No sedation. Reacting to noxious stimuli in BUE. Normotensive. Intermittently tachycardic. Urine output adequate. Vital Signs: Temp Pulse Resp BP SpO2 FiO2 97.6 F 81 27 123/84 95 30 12/11/19 07:13 12/11/19 09:01 12/11/19 09:00 12/11/19 09:01 12/11/19 09:01 12/11 08:05 Physical Exam: Gen: Intubated, no sedation. No acute distress. HEENT: Normocephalic, atraumatic. Pupils equal and reactive. ETT and OGT in place. Neck supple and trachea midline. Lungs: Intubated. Equal air entry bilateral, coarse breath sounds. Cardiac: Irregular rhythm, tachycardic, HR 110s Abdomen: Soft, nondistended. Hypoactive bowel sounds. Extremities: Feet cool but palpable PT pulses b/l. Neuro: Unresponsive. Withdraws to pain in BUE. No response in BLE. Does not open eyes to voice or noxious stimuli. Fluid Balance (Past 24 Hours): I= O= Net Intake & Output 12/09/19 12/10/19 12/11/19 12/12/19 06:59 06:59 06:59 06:59 Intake Total 1974 2646 3096 100 Output Total 2922 1950 1061 70 Balance -515 700 3652 30 Weight 216 lb 7.903 oz 216 lb 0.848 oz 215 lb 9.793 oz Intake: IV Fluids 921 186 979 ABX - CEFEPIME 50 ABX - VANCOMYCIN 580 67 Calcium gluconate 30 Kepra 39 NS (0.9%) 341 979 IVPB 600 396 ABX - CEFEPIME 58 126 ABX - VANCOMYCIN 302 Calcium gluconate 129 Kepra 111 270 Oral 0 0 Tube Feeding 650 1660 1261 Tube Feeding Flush Amount 0 200 460 100 Packed Cells 403 Output: Urine 2922 860 1061 70 Wood 1090 Tube Feeding Residual 0 0 Amount Wasted Other: Estimated Void Large Medium Date of Last Bowel 12/08/19 Movement # Bowel Movements 1 Estimated Stool Amount Medium # Voids 1 1 Labs: Laboratory Results - last 24 hr 12/11/19 12/11/19 06:10 06:10 WBC 8.9 RBC 3.04 L Hgb 9.6 L Hct 30 L MCV 99 H MCH 31 MCHC 32 RDW 22 H Plt Count 126 L MPV 8.5 Neut % (Auto) 90.9 Lymph % (Auto) 2.5 [place] % (Auto) 6.0 Eos % (Auto) 0.6 Baso % (Auto) 0.0 Absolute Neuts (auto) 8.1 H Absolute Lymphs (auto) 0.2 L Absolute Monos (auto) 0.5 Absolute Eos (auto) 0.1 Absolute Basos (auto) 0.0 Absolute Nucleated RBC 0.0 Immature Gran % 8.0 Neutrophils % 83.0 Band Neutrophils % 6.0 Lymphocytes % 2.0 Monocytes % 6.0 Eosinophils % 1.0 Metamyelocytes % 2.0 Nucleated RBC % 0.0 Toxic Granulation 1+ Dohle Bodies Present Normal RBC Morphology Not Reportable Polychromasia 1+ Anisocytosis 2+ Macrocytosis 1+ Sodium 144 Potassium 4.3 Chloride 110 Carbon Dioxide 25 Anion Gap 9 BUN 31 H Creatinine 0.76 Est GFR ( Amer) 122.3 Est GFR (Non-Af Amer) 101.1 BUN/Creatinine Ratio 40.8 H Glucose 122 H Calcium 8.6 Phosphorus 2.7 Magnesium 2.4 Total Bilirubin 0.80 AST 17 ALT 8 Alkaline Phosphatase 333 H Total Protein 6.4 Albumin 3.2 Globulin 3.2 Albumin/Globulin Ratio 1.0 Nutrition: Tube feeds Impression: 69M with V fib arrest with ROSC on 12/05. Cardiac arrest Acute hypoxic respiratory failure Atrial fibrillation with RVR Encephalopathy MSSA Pneumonia HTN Plan: Neuro: Still encephalopathic but exam is slightly better today. Continuing to monitor for improvement in mental status. EEG today. Continue Keppra for epileptogenic foci on previous EEG. Neuro following. No sedation. CV: Continue amiodarone, metoprolol, digoxin. Cardiology following. Holding anticoagulation for a fib due to h/o hematuria when taking OAC. Telemetry. Goal MAP >65 Respiratory: Wean vent to keep O2 sat >90%. Bronchodilators prn. GI: Continue tube feeds GI ppx: Protonix Renal: Condom catheter. Urine output adequate ID: Leukocytosis resolved. Afebrile since yesterday. Cefepime day 3, completed ceftriaxone x4days. Plan for total 7 days of treatment for PNA, will stop cefepime after today. If he continues to require antibiotics, will try to avoid cefepime due to concern for lower seizure threshold. Heme: H&H stable. Daily CBC DVT ppx: SQH. Endo: Fingersticks q6h. Sliding scale insulin if BG >180. MSK: Bedrest. Code status: Full Dispo: ICU for ventilator management and hemodynamic monitoring Status: Critical Critical Care Time: 30 min
[2019-12-11] MEDS: Cefepime 1 GM in Dextrose(*) 1 GM/50 ML BAG IV SCH (10:23)
[2019-12-11] MEDS: Acetaminophen ADULT LIQ* 650 MG/20.3 ML UDC PO PRN ×3 (10:23→22:56)
[2019-12-11] MEDS ORDERED: Metoprolol Tartrate IV* 1 MG/ML 5 ML VIAL IV PRN (17:55)
--- NOTE | 2019-12-11 19:50 | PN ---
Progress Note - Progress Note Date of Service: 12/11/19 Note: Notified by RT that there was a leak in the ETT balloon. I used the GlideScope to confirm that the ETT was through the vocal cords. I then exchanged the ETT over a bougie. The tube was advanced to 28 cm at the lip. There was bilateral breath sounds after the exchange. CXR showed the ETT tip at the vik, so it was pulled back by 2 cm. Repeat CXR showed ETT in good position. Patient has copious amounts of griggs thick secretions in the glottis and in the tube. Will send another sputum specimen and continue antibiotics. Will switch to Zosyn due to concern for lower seizure threshold with cefepime and for broader coverage.
[2019-12-11] MEDS ORDERED: Piperacillin/Tazobac ADVAN(*) 3.375 GM in NS 0.9% 100 ML* 100 ML IVPB ONE (19:51)
[2019-12-11] MEDS ORDERED: Zosyn per Pharmacy* NOTE FOLLOW UP SCH (20:00)
[2019-12-11] MEDS: Pantoprazole IV* 40 MG IV SCH (21:45)
[2019-12-11] MEDS: Metoprolol Tartrate TAB* 50 mg PO SCH (21:54)
[2019-12-11] MEDS: Senna TAB 8.6 mg* TAB PO SCH (21:55)
[2019-12-11] MEDS: Docusate LIQ* 100 MG/10 ML UDC PO SCH (21:58)
--- NOTE | 2019-12-11 23:34 | EEG ---
ELECTROENCEPHALOGRAPHY: DATE OF STUDY: 12/11/19 - ROOM #ICU-05 DATE READ: 12/11/19 DURATION: [id number]. ORDERED BY: Dr. Flores. CLINICAL PROBLEM: Mr. Pan is a 69-year-old man who has suspected anoxic brain injury and is in a coma. This EEG was obtained to evaluate for epileptiform discharges or electrographic seizures. MEDICATIONS: Keppra. CLINICAL STATE: Coma. REPORT: Background, the most notable feature of this recording was frequent, diffuse, medium amplitude, sharp, and occasionally spike and slow wave discharges seen throughout the recording and interspersed with diffuse, polymorphic, medium amplitude, 2-5 Hz delta and theta slowing throughout the recording. There was no evolution of the discharges in terms of the frequency. There was occasional diffuse low-voltage suppression of the background occurring every 5-10 seconds. Overall, there are no electrographic seizures. There has been no significant change from the prior EEG recording completed on 12/09/19. Hyperventilation and photic stimulation were not performed. CLINICAL IMPRESSION: This is an abnormal EEG in a comatose patient due to the presence of diffuse spike and slow wave epileptiform discharges interspersed with diffuse slowing and occasional suppression of the background. These findings are suggestive of severe, global diffuse encephalopathy. There were no electrographic seizures. Epileptiform discharges can be seen in the setting of cefepime therapy, although these same discharges were seen on a prior study, before cefepime therapy. There has been no interval change from the previous study dated 12/09/19. [id number] #: [id number] MTDD
[2019-12-12] MEDS: CHLORHEXADINE (PERIDEX) VENT ORAL CARE TOPICAL SCH ×5 (01:01→17:31)
[2019-12-12] MEDS: ZOSYN 3.375 GM Q8H per EXTENDED INFUSION IVPB SCH ×4 (02:22→10:50)
[2019-12-12] MEDS: Heparin VIAL(*) 5000 UNITS/ML VIAL (FIVE THOUSAND) SUBCUT SCH ×2 (06:33→13:50)
[2019-12-12] MEDS: levETIRAcetam 500 MG IVPREMIX* 500 MG/100 ML BAG IV SCH ×2 (06:37→17:34)
[2019-12-12] MEDS: Acetaminophen ADULT LIQ* 650 MG/20.3 ML UDC PO PRN ×2 (06:40→14:49)
[2019-12-12] MEDS: Digoxin IV* 0.5 MG/2 ML AMP (0.25 MG/ML) IV SLOW PU SCH (07:15)
[2019-12-12] MEDS: Amiodarone TAB* 400 MG G TUBE SCH (07:15)
[2019-12-12] MEDS: Senna TAB 8.6 mg* TAB PO SCH (07:16)
[2019-12-12] MEDS: Metoprolol Tartrate TAB* 50 mg PO SCH (07:16)
[2019-12-12] MEDS: Docusate LIQ* 100 MG/10 ML UDC PO SCH (07:16)
--- NOTE | 2019-12-12 14:53 | PN ---
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 - Continues to have tachycardia but the rate is slightly improved ROS: ROS unable to be obtained secondary to intubated/unresponsive Tele: afib with RVR Vitals: Vital Signs 12/11/19 12/11/19 12/11/19 16:17 17:00 17:30 Temperature 101.1 F 101.8 F 100.9 F Pulse Rate 101 132 Respiratory 24 Rate Blood Pressure 133/83 (mmHg) O2 Sat by Pulse 95 95 Oximetry 12/11/19 12/11/19 12/11/19 17:56 18:00 18:31 Temperature 100.4 F 100.6 F 100.6 F Pulse Rate 141 82 Respiratory 26 Rate Blood Pressure 129/69 123/60 (mmHg) O2 Sat by Pulse 94 93 Oximetry 12/11/19 12/11/19 12/11/19 19:00 19:01 19:30 Temperature 100.4 F 100.4 F 93.9 F Pulse Rate 112 98 118 Respiratory 30 Rate Blood Pressure 123/85 111/59 (mmHg) O2 Sat by Pulse 94 95 95 Oximetry 12/11/19 12/11/19 12/11/19 20:00 20:30 21:00 Temperature 100.6 F 101.3 F 101.3 F Pulse Rate 106 88 114 Respiratory 25 22 Rate Blood Pressure 98/56 88/59 93/45 (mmHg) O2 Sat by Pulse 93 94 94 Oximetry 12/11/19 12/11/19 12/11/19 21:30 22:00 22:01 Temperature 101.3 F 101.7 F 101.7 F Pulse Rate 96 108 102 Respiratory 28 Rate Blood Pressure 106/58 111/65 (mmHg) O2 Sat by Pulse 94 94 94 Oximetry 12/11/19 12/11/19 12/11/19 22:31 23:00 23:30 Temperature 101.7 F 101.8 F 101.5 F Pulse Rate 86 84 101 Respiratory 27 Rate Blood Pressure 96/52 102/60 101/70 (mmHg) O2 Sat by Pulse 94 94 96 Oximetry 12/12/19 12/12/19 12/12/19 00:00 00:27 00:30 Temperature 101.1 F 100.8 F 100.0 F Pulse Rate 101 78 86 Respiratory 28 Rate Blood Pressure 90/55 96/57 (mmHg) O2 Sat by Pulse 96 96 95 Oximetry 12/12/19 12/12/19 12/12/19 01:00 01:31 02:00 Temperature 100.6 F 100.4 F 97.9 F Pulse Rate 89 78 88 Respiratory 32 30 Rate Blood Pressure 125/89 93/50 96/67 (mmHg) O2 Sat by Pulse 95 94 94 Oximetry 12/12/19 12/12/19 12/12/19 02:30 03:00 03:30 Temperature 99.7 F Pulse Rate 76 85 88 Respiratory 23 Rate Blood Pressure 106/53 93/68 92/46 (mmHg) O2 Sat by Pulse 95 95 96 Oximetry 12/12/19 12/12/19 12/12/19 04:00 04:31 05:00 Temperature Pulse Rate 83 102 111 Respiratory 31 31 Rate Blood Pressure 106/70 97/71 (mmHg) O2 Sat by Pulse 95 95 95 Oximetry 12/12/19 12/12/19 12/12/19 05:30 06:00 06:30 Temperature Pulse Rate 122 115 108 Respiratory 30 Rate Blood Pressure 118/61 108/58 113/62 (mmHg) O2 Sat by Pulse 95 96 96 Oximetry 12/12/19 12/12/19 12/12/19 07:00 07:30 08:00 Temperature Pulse Rate 96 114 76 Respiratory 29 32 Rate Blood Pressure 131/56 115/69 101/42 (mmHg) O2 Sat by Pulse 95 95 96 Oximetry 12/12/19 12/12/19 12/12/19 08:30 09:00 10:00 Temperature Pulse Rate 74 90 75 Respiratory 31 30 Rate Blood Pressure 97/48 95/48 98/53 (mmHg) O2 Sat by Pulse 95 96 96 Oximetry 12/12/19 12/12/19 12/12/19 10:26 10:30 11:00 Temperature Pulse Rate 76 81 85 Respiratory 30 Rate Blood Pressure 93/62 99/50 100/61 (mmHg) O2 Sat by Pulse 96 95 95 Oximetry 12/12/19 12/12/19 12/12/19 11:30 12:00 12:01 Temperature Pulse Rate 75 64 76 Respiratory 29 Rate Blood Pressure 121/79 108/51 (mmHg) O2 Sat by Pulse 97 98 99 Oximetry 12/12/19 12/12/19 12/12/19 12:30 13:00 13:31 Temperature Pulse Rate 100 108 73 Respiratory 30 Rate Blood Pressure 112/55 134/55 114/45 (mmHg) O2 Sat by Pulse 98 96 97 Oximetry 12/12/19 12/12/19 12/12/19 14:00 14:30 15:00 Temperature Pulse Rate 83 102 107 Respiratory 31 31 Rate Blood Pressure 108/54 101/62 107/56 (mmHg) O2 Sat by Pulse 95 95 95 Oximetry 12/12/19 12/12/19 12/12/19 15:30 16:00 16:01 Temperature Pulse Rate 121 86 108 Respiratory 34 Rate Blood Pressure 111/60 105/70 (mmHg) O2 Sat by Pulse 95 95 95 Oximetry Vent: Infusions: none Medications: Acetaminophen (Tylenol Adult Liq*) 650 mg PO Q4H PRN PRN Reason: PAIN - MILD/ TEMP>101 Last Admin: 12/12/19 14:49 Dose: 650 mg Albuterol/Ipratropium (Duoneb (Albuterol 2.5 Mg/Ipratropium 0.5 Mg)) 1 neb INH [id number] AWAKE PRN PRN Reason: SOB/WHEEZING Amiodarone HCl (Cordarone Tab*) 400 mg G TUBE BID [facility] Stop: 12/21/19 08:59 Last Admin: 12/12/19 07:15 Dose: 400 mg Bisacodyl (Dulcolax Supp*) 10 mg [place] DAILY PRN PRN Reason: CONSTIPATION Last Admin: 12/11/19 17:01 Dose: 10 mg Chlorhexidine Gluconate (Peridex Mouth Wash 0.12%*) 15 ml TOPICAL Q4H [facility] Last Admin: 12/12/19 12:28 Dose: 15 ml Digoxin (Digoxin Iv*) 0.125 mg IV SLOW PU DAILY [facility] Last Admin: 12/12/19 07:15 Dose: 0.125 mg Docusate Sodium (Colace Liq*) 100 mg PO BID [facility] Last Admin: 12/12/19 07:16 Dose: 100 mg Heparin Sodium (Porcine) (Heparin Vial(*)) 5,000 units SUBCUT Q8HR [facility] Last Admin: 12/12/19 13:50 Dose: 5,000 units Levetiracetam (Keppra Iv Premix*) 500 mg in 100 mls @ 400 mls/hr IV Q12H [facility] Last Admin: 12/12/19 06:37 Dose: 400 mls/hr Piperacillin Sod/Tazobactam (Sod 3.375 gm/ Sodium Chloride) 100 mls @ 25 mls/ hr IVPB Q8H [facility] Last Admin: 12/12/19 10:50 Dose: 25 mls/hr Metoprolol Tartrate (Lopressor Iv*) 5 mg IV Q6H PRN PRN Reason: TACHYCARDIA Last Admin: 12/11/19 18:07 Dose: 5 mg Metoprolol Tartrate (Lopressor Tab*) 50 mg PO Q12HR [facility] Last Admin: 12/12/19 07:16 Dose: 50 mg Miscellaneous (Ativan Pyxis Jacobsen) 1 ea N/A .ATIVAN IV JACOBSEN PRN PRN Reason: PYXIS JACOBSEN Pantoprazole Sodium (Protonix Iv*) 40 mg IV Q24H [facility] Last Admin: 12/11/19 21:45 Dose: 40 mg Pharmacy Consult (Zosyn Per Pharmacy*) 1 note FOLLOW UP .ZOSYN PER PHARMACY [facility] Senna (Senokot 8.6 Mg Tab*) 2 tab PO BID [facility] Last Admin: 12/12/19 07:16 Dose: 2 tab Physical Exam: Constitutional: nonresponsive, no apparent distress Head: normocephalic, atraumatic Eyes: no pallor, no icterus ENT: moist mucous membranes Neck: soft, supple CVS: tachy, irregular, no obvious murmur Chest/Resp: bilateral air entry, no rhales, no wheeze, no rhonchi, no acc muscle use Abdomen/GI: soft, nontender, nondistended, BS+ Ext/Msk: warm, pulses+, generalized edema Skin: intact, warm Neuro: unresponsive. Does not open eyes or follow commands. PERRL 3mm, corneal and gag reflex intact, breathing above vent. No movement any extremity to noxious stimuli. Labs: Laboratory Results - last 24 hr 12/09/19 12/09/19 12/10/19 08:07 23:01 08:41 POC Glucose (mg/dL) 140 H 132 H 139 H Ammonia 12/10/19 12/10/19 12/10/19 11:44 16:42 21:08 POC Glucose (mg/dL) 139 H 144 H 137 H Ammonia 12/11/19 12/11/19 12/11/19 00:20 04:13 08:38 POC Glucose (mg/dL) 131 H 120 H 139 H Ammonia 12/11/19 12/11/19 12/12/19 13:28 18:13 00:21 POC Glucose (mg/dL) 148 H 145 H 142 H Ammonia 12/12/19 12/12/19 06:13 09:20 POC Glucose (mg/dL) 129 H Ammonia 45 Imaging: CTH 12/12: No acute abnormality Chest xray 12/11: unchanged alveolar consolidation at the left mid to lower lung zone Assessment: 69M with out of hospital vfib arrest with 45 mins ROSC. Hypothermia protocol completed. - Vfib arrest - afib with rvr - HTN - MUNDO PNA Plan: Neuro- - Unresponsive, likely anoxic brain injury s/p CPR. - CTH completed this AM and does not show acute changes - Poor prognosis. - EEG unchanged from prior. Continue keppra -Delirium prec; avoid BDZ CVS- - HTN: BP currently controlled -Maintain MAP>65 - Afib RVR: continue amio, metoprolol, digoxin. given PRN metoprolol as well Resp- - Intubated for airway protection -Wean Fio2 to keep sat>92% - Aspiration prec, Pulmonary Toilet -VAP bundle - PNA has been treated ID- - MSSA PNA completed treatment. Cefepime will also lower seizure threshold. - Continues to spike temps but most likely central fever GI- -Nutrition: TF -GI prophylaxis protonix Renal- -strict I/O, replete to keep K>4, Mg>2 -condom catheter Heme- - No active issues - Subq heparin for DVT prophylaxis Endo-Maintain BG<200, insulin protocol as needed Musculsk- pressure ulcer prophylaxis. Bedrest. Wounds- DTI left buttock Nutrition-TF DVT prophylaxis:subq heparin GI prophylaxis: PPI Disposition: Patient requires Critical Care/ICU for anoxic brain injury, afib with rvr, respiratory failure Patient clinical status: critical Code Status: DNR Had discussion with patient's regarding clinical status. Patient has failed to make any progress neurologically. Prognosis is poor. Patient may wake up but will most likely take months to years. He would require trach and PEG and SNF. She expressed that he always wanted to maintain his quality of life. If he was unable to do that, he would not want to live. She agreed to DNR for now, and will make him comfort care when all her family arrives. Total Critical Care time is 45minutes
[2019-12-12] MEDS ORDERED: Morphine PCA ADULT* 5 MG/ML 30 ML PCA SCH (17:00)
[2019-12-12] MEDS ORDERED: Lorazepam PYXIS KEY PRN (17:22)
[2019-12-12 18:51] VITALS: BP 116/63
[2019-12-12] MEDS: LORazepam INJ* 2 MG/ML 1 ML VIAL IV PUSH PRN ×2 (18:56→20:00)
--- NOTE | 2019-12-13 01:18 | DS ---
SUMMARY: DATE OF ADMISSION: 12/05/19 DATE OF : 12/12/19 at 8:08 p.m. ADMISSION DIAGNOSES: Cardiac arrest, status post return of spontaneous circulation, likely secondary to ventricular fibrillation arrest. CAUSE OF : Vfib arrest, status post ROSC likely secondary to severe systolic heart failure. SECONDARY DIAGNOSES: Include: 1. Prostate cancer with metastasis to bone. 2. Atrial fibrillation with rapid ventricular response. 3. Hypertension. 4. Hyperlipidemia. 5. Severe systolic dysfunction. HOSPITAL COURSE: For full details of history of presenting illness, please refer to the admission H and P dictated by Dr. Radha Dyer. This was a 69- year-old male with past medical history of AFib with RVR and significantly reduced ejection fraction diagnosed in October 2019, who was noted to have a cardiac arrest at home. CPR was performed and the patient achieved ROSC, after which hypothermia protocol was initiated and the patient was followed by the new accounts banking representative in the ICU. Post hypothermia protocol, all the sedation was discontinued to see if the patient would follow immediate commands. 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 Given overall that the patient did not improve with over a week of ventilator and cardiac support, family was notified about the poor prognosis and the patient was made DNR and later family upon re-discussion with new accounts banking representative regarding poor prognosis along with the idea that the patient would require a trach and PEG and placement at subacute nursing facility for any meaningful return of neurological function, which would take over many months, expressed that they agreed with DNR along with comfort care and terminal wean. This was performed on 12/12/19; and, at 8:08 p.m., the patient was noted to be in asystole. Family was present at bedside and notified, and postmortem care was initiated. [id number]/[facility] #: [id number] [facility]PITALFatou
== END 2019-12-12 20:08 | disposition expired | DRG 308 ==
LOC: ED 18:23 → ICU 20:00
PROVIDERS: ADMIT Hospitalist; ATTEND Internal Medicine
PROC: 5A1955Z Respiratory Ventilation, Greater than 96 Consecutive Hours (ICD-10-PCS; principal; 2019-12-05)
PROC: 0BH17EZ Insertion of Endotracheal Airway into Trachea, Via Natural or Artificial Opening (ICD-10-PCS; 2019-12-05)
PROC: 30233N1 Transfusion of Nonautologous Red Blood Cells into Peripheral Vein, Percutaneous Approach (ICD-10-PCS; 2019-12-06)
PROC: 4A00X4Z Measurement of Central Nervous Electrical Activity, External Approach (ICD-10-PCS; 2019-12-11)
DX: I49.01 Ventricular fibrillation (principal); R40.2342 Coma scale, best motor response, flexion withdrawal, at arrival to emergency department; R40.2112 Coma scale, eyes open, never, at arrival to emergency department; R40.2212 Coma scale, best verbal response, none, at arrival to emergency department; J96.01 Acute respiratory failure with hypoxia; J15.211 Pneumonia due to Methicillin susceptible Staphylococcus aureus; C79.51 Secondary malignant neoplasm of bone; C79.52 Secondary malignant neoplasm of bone marrow; I50.20 Unspecified systolic (congestive) heart failure; G93.1 Anoxic brain damage, not elsewhere classified; I46.2 Cardiac arrest due to underlying cardiac condition; I11.0 Hypertensive heart disease with heart failure; C61 Malignant neoplasm of prostate; E78.00 Pure hypercholesterolemia, unspecified; K21.9 Gastro-esophageal reflux disease without esophagitis; M19.90 Unspecified osteoarthritis, unspecified site; R79.89 Other specified abnormal findings of blood chemistry; I25.9 Chronic ischemic heart disease, unspecified; E83.42 Hypomagnesemia; I42.8 Other cardiomyopathies; I48.19 Other persistent atrial fibrillation; I47.2 Ventricular tachycardia; Z66 Do not resuscitate; E78.5 Hyperlipidemia, unspecified; Z87.891 Personal history of nicotine dependence; Z92.21 Personal history of antineoplastic chemotherapy; Z92.3 Personal history of irradiation
CPT/HCPCS: 36415; 70450; 70551; 71045; 80048; 80051; 80053; 80162; 81003; 81015; 82140; 82330; 82550; 82553; 82803; 83605; 83735; 83880; 84100; 84439; 84443; 84484; 85014; 85018; 85025; 85610; 86850; 86900; 86901; 86922; 87040; 87070; 87077; 87086; 87186; 87205; 87641; 93005; 93306; 93308; 94003; 94640; 95700; 95712; 95822; 96365; 96375; 99223; 99285; A9270-GY; C8924; J0171; J0282; J0610; J0692; J0696; J1160; J1644; J1940; J1953; J2060; J2270; J2543; J2704; J3010; J3370; J3475; J3480; J3490; P9040